=== PATIENT | female | born 1960 | race Caucasian/White ===

== ENCOUNTER 2020-11-19 10:32 | Outpatient (CLI) | payer MEDICARE, MEDICAID, SELFPAY ==
--- NOTE | 2020-11-19 10:00 | MM_ITS ---
WS: [id number] BILATERAL DIGITAL SCREENING MAMMOGRAPHY WITH CAD CLINICAL INFORMATION: Z12.31 - Encounter for screening mammogram for malignant neoplasm of breast HISTORY: Screening mammogram. No current complaints. COMPARISON: TECHNIQUE: Bilateral CC and MLO views. FINDINGS: Scattered fibroglandular densities bilaterally. Stable 9 mm ovoid nodule mid depth left breast. This is stable since 2006 and 2012. No suspicious focal mass, asymmetry, calcifications, or architectural distortion. No evidence of malignancy. Vascular calcification. Lucent center calcification. Secretory calcifications. MM/[place] [id number] IMPRESSION: BI-RADS: 2-Benign FOLLOW UP: 1 Year Follow-up Recommend return to annual screening mammography.
== END 2020-11-19 10:33 | disposition home or self-care (01) ==
PROVIDERS: PCP Nurse Practitioner Family; Visit Provider Nurse Practitioner Family
DX: Z12.31 Encounter for screening mammogram for malignant neoplasm of breast (principal)
CPT/HCPCS: 77067

== ENCOUNTER → 2020-12-05 09:45 | Outpatient (BNVA) | payer MEDICARE, MEDICAID, SELFPAY | PROVIDERS: PCP Nurse Practitioner Family; Visit Provider Surgery | DX: Z01.812 Encounter for preprocedural laboratory examination (principal); Z20.822 Contact with and (suspected) exposure to COVID-19 | CPT/HCPCS: 87635 ==

== ENCOUNTER 2020-12-11 07:48 | Day surgery (SDC) | payer MEDICARE, MEDICAID, SELFPAY ==
[2020-12-09 12:30] VITALS: BMI 40.6
--- NOTE | 2020-12-11 08:15 | ANES.PREANE2 ---
Pre-Anesthetic Assessment Pre-Anesthetic Assessment: Height/Weight: Height 1.55 m Weight 97.522 kg Preop Diagnosis: screening colonoscopy Proposed Procedure: Operation Date: 12/11/20 09:15 Proposed Procedures p Colonoscopy 63654 Z12.11(Not Applicable) - Aris Vogel MD Was Beta Mi taken within 24 hours: N/A Was Clonidine taken within 24 hours: N/A Social: Social History: No alcohol and No tobacco Exam: Pre-Anes Outpt Exam: alert, oriented x 3, clear to auscultation bilaterally and regular rate & rhythm Airway: Submandibular: WNL Cervical ROM: WNL MP: 2 CV/HEM: CV/HEM: DVT : : Chronic renal failure Comments: Peritoneal dialysis Metabolic: Metabolic: DM and Morbid obesity Anesthetic Plan: ASA status: 3 Anesthesia: MAC Risk of > 500 ml blood loss (7ml/kg in children): No PFSH Anesthesia PFSH: Medical History (Updated 11/24/20 @ 09:56 by Aris Vogel MD) CRF (chronic renal failure) DVT (deep venous thrombosis) Dyslipidemia Hx of essential hypertension Hx of type 2 diabetes mellitus Surgical History (Updated 11/24/20 @ 09:51 by Aris Vogel MD) History of parathyroid surgery Hx of hysterectomy Peritoneal dialysis catheter in situ S/P IVC filter Family History Father Cancer Denies family history of Anesthesia complication Bleeding disorder Social History Smoking and tobacco status: former smoker Second hand smoke exposure: No Smoking risk assessment/counseling performed?: No Alcohol intake: never Desire information about alcohol rehabilitation?: No Counseling given: No Desire information about substance/drug rehabilitation?: No Counseling given: No Adopted: No Caregiver/support person: No Lives independently: Yes Household members: none Housing: House Marital status: Number of children: 3 Highest education level completed: Some College, No Degree service: No Current occupational status: disabled Data Anesthesia Cardiac Studies: No Data to Display
[2020-12-11 08:26] VITALS: BP 146/86; PULSE 76; RESP 18; TEMP 36.2; O2SAT 98
[2020-12-11] MEDS: sodium chloride 0.9% 1,000 ML 30 ML IV (08:59)
[2020-12-11 09:09] LABS: Glucose Point of Care 232 mg/dL (70-110)
--- NOTE | 2020-12-11 09:42 | W.PM.OPSUD ---
Surgery/Procedure H&P Update DATE OF PROCEDURE: December 11, 2020 DATE H&P PERFORMED: 11/24/20 H&P UPDATE INFORMATION: I have reviewed H&P completed within last 30 days, I have examined patient prior to procedure and No changes to prior documentation PREOP DIAGNOSIS: screening colonoscopy PLANNED PROCEDURE: Operation Date: 12/11/20 09:15 Proposed Procedures p Colonoscopy 97381 Z12.11(Not Applicable) - Aris Vogel MD
[2020-12-11 10:02] VITALS: BP 96/53; PULSE 67; RESP 16; TEMP 36.3; O2SAT 98
--- NOTE | 2020-12-11 17:13 | ANE.PACU2 ---
Inpatient post-anesthesia follow up: Airway intact: Yes Vital signs: Temperature 97.3 F Pulse Rate 67 Respiratory Rate 16 Blood Pressure 96/53 Pulse Oximetry 98 Oxygen Delivery Me thod Room Air Oxygen Flow Rate Fraction of Inspir ed Oxygen Hydration adequate: Yes Nausea and vomiting: No Pain level: 1 Mental status: Baseline
== END 2020-12-11 10:30 | disposition home or self-care (01) ==
PROVIDERS: PCP Nurse Practitioner Family; Visit Provider Surgery
PROC: 0DJD8ZZ Inspection of Lower Intestinal Tract, Via Natural or Artificial Opening Endoscopic (ICD-10-PCS; CPT 45378; principal; 2020-12-11 09:15)
DX: Z12.11 Encounter for screening for malignant neoplasm of colon (principal); D12.5 Benign neoplasm of sigmoid colon; D12.3 Benign neoplasm of transverse colon; K57.30 Diverticulosis of large intestine without perforation or abscess without bleeding; K64.8 Other hemorrhoids; E11.22 Type 2 diabetes mellitus with diabetic chronic kidney disease; I12.9 Hypertensive chronic kidney disease with stage 1 through stage 4 chronic kidney disease, or unspecified chronic kidney disease; N18.9 Chronic kidney disease, unspecified; Z79.899 Other long term (current) drug therapy; Z87.891 Personal history of nicotine dependence; Z86.718 Personal history of other venous thrombosis and embolism
CPT/HCPCS: 36416; 45380; 82962; 88305; 96360; J2704; J7030

== ENCOUNTER 2020-12-26 08:21 | Outpatient (CLI) | payer MEDICARE, MEDICAID, SELFPAY ==
--- NOTE | 2020-12-26 08:25 | USCV_ITS ---
NOTE: Report was unsigned for reason: Ordering provider was edited. Original Signature date and time was: 12/26/20 @ 1315 Arianne Archer Age: 60 Gender: F : 1960 Exam Date: 12/26/2020 08:54 Ordering Phys: NOT ON FILE, DOCTOR XX Technologist: Tammy Long [place] [facility] [place]ication: pain, swelling HISTORY: Lower extremity swelling. PROCEDURES: Venous duplex imaging was performed in only the right lower extremity. The following venous structures were evaluated: common femoral vein, profunda vein, proximal portion of the greater saphenous vein, superficial femoral vein, and the popliteal vein. In addition, the posterior tibial and peroneal trunk were evaluated. FINDINGS: No DVT or superficial thrombus seen in RLE. CONCLUSIONS No evidence of right lower extremity DVT. Jin Easton MD (Electronically Signed) Final Date: 26 Dec 2020 13:15 S MTDD
== END 2020-12-26 08:22 | disposition home or self-care (01) ==
LOC: RAD 08:23
PROVIDERS: PCP Nurse Practitioner Family; Visit Provider Internal Medicine Hematology & Oncology
DX: Z86.718 Personal history of other venous thrombosis and embolism (principal); M79.89 Other specified soft tissue disorders
CPT/HCPCS: 93971

== ENCOUNTER → 2021-01-15 10:33 | Outpatient (BNVA) | payer MEDICARE, MEDICAID, SELFPAY | PROVIDERS: PCP Nurse Practitioner Family; Visit Provider Nurse Practitioner Family | DX: Z12.4 Encounter for screening for malignant neoplasm of cervix (principal) | CPT/HCPCS: 88175 ==

== ENCOUNTER 2021-05-26 13:21 | Outpatient (CLI) | payer MEDICARE, MEDICAID, SELFPAY ==
--- NOTE | 2021-05-26 13:00 | CT_ITS ---
WS: [id number] CT HEAD TECHNIQUE: Noncontrast CT of the head obtained from the skullbase to the vertex. CLINICAL INFORMATION: R55 - Syncope and collapse COMPARISON: None. DLP: 933.[address] scans at [facility] use at least one of these dose optimization techniques: automated e xposure control; mA and/or kV adjustment per patient size (includes targeted exams where dose is matc hed to clinical indication); or iterative reconstruction. FINDINGS: No evidence of intracranial hemorrhage or mass effect. Ventricular system and basal cisterns are tee nt. Moderate small vessel changes with moderate parenchymal volume loss. No extra-axial fluid collect ions. No evidence of mass or mass effect. Normal claudio-white differentiation. Paranasal sinuses and mastoid air cells are well aerated. Slight mucosal thickening left mastoid tip. .Normal visualized soft tissues. CT/CT head wo con* [id number] IMPRESSION: 1. No evidence of intracranial hemorrhage or mass effect. 2. Moderate small vessel changes. Moderate parenchymal volume loss. 3. No acute intracranial findings.
--- NOTE | 2021-05-26 13:30 | USCV_ITS ---
Arianne Archer Age: 60 Gender: F : 1960 Exam Date: 05/26/2021 13:41 Ordering Phys: Josie Caballero Technologist: Tammy Stout Exam Location: [facility] – [place] Indication: SYNCOPE Risk Factors: Previous Vascular Surgery: Right Brachial BP: / Left Brachial BP: / Right Left Velocity (cm/s) Spectral Plaque Velocity (cm/s) Spectral Plaque Syst/Diast Broadening Syst/Diast Broadening 95.90/ 8.80 Prox CCA 75.10 / 13.30 80.60/ 14.00 Mid CCA 65.60 / 14.00 65.30/ 15.50 Distal CCA 56.50 / 19.10 46.60/ 10.70 Prox ICA 47.30 / 17.70 49.70/ 16.90 Mid ICA 81.90 / 29.10 54.20/ 15.80 Distal ICA 75.00 / 28.00 80.00 ECA 60.50 0.67 ICA/CCA 1.25 Antegrade Vertebral Antegrade 34.80/ 15.10 cm/s 81.60/ 23.20 cm/s Tri Subclavian Tri 68.40 136.4 0 CONCLUSIONS Right ICA stenosis <50%. Mild atheromatous plaque right carotid bulb/ICA. Left ICA stenosis <50%. Mild atheromatous plaque left carotid bulb/ICA. Normal antegrade Doppler flow noted in the right vertebral artery. Normal antegrade Doppler flow noted in the left vertebral artery. Jin Easton MD (Electronically Signed) Final Date: 26 May 2021 14:11 S
== END 2021-05-26 13:22 | disposition home or self-care (01) ==
PROVIDERS: PCP Nurse Practitioner; Visit Provider Nurse Practitioner
DX: I65.23 Occlusion and stenosis of bilateral carotid arteries (principal); R55 Syncope and collapse
CPT/HCPCS: 70450; 93880

== ENCOUNTER 2021-05-26 13:23 | Outpatient (CLI) | payer MEDICARE, MEDICAID, SELFPAY ==
--- NOTE | 2021-05-26 13:37 | USCV_ITS ---
Arianne Archer Age: 60 Gender: F : 1960 Exam Date: 05/26/2021 14:00 Ordering Phys: Nick Nj MD Technologist: Tammy Stout [place] [facility] [place]: HISTORY OF DVT, TENDERNESS HISTORY: Lower extremity pain. Patient has history of. DVT. PROCEDURES: Venous duplex imaging was performed in only the left lower extremity. The following venous structures were evaluated: common femoral vein, profunda vein, proximal portion of the greater saphenous vein, superficial femoral vein, and the popliteal vein. In addition, the posterior tibial and peroneal trunk were evaluated. FINDINGS: There appears to be residual or partial thrombus present in the Lt SFV prox, mid, and distal. All other veins imaged appear free of thrombus and compressible at this time. Comparison 12/26 CONCLUSIONS Residual non occlusive thrombus Left femoral vein in the proximal segment extending distally. Remainder of LLE veins are patent. Jin Easton MD (Electronically Signed) Final Date: 26 May 2021 14:21 S
== END 2021-05-26 13:24 | disposition home or self-care (01) ==
PROVIDERS: PCP Nurse Practitioner; Visit Provider Internal Medicine Nephrology
DX: I82.412 Acute embolism and thrombosis of left femoral vein (principal); M79.605 Pain in left leg; Z86.718 Personal history of other venous thrombosis and embolism
CPT/HCPCS: 93971

== ENCOUNTER 2021-07-06 09:20 | Outpatient (CLI) | payer MEDICARE, MEDICAID, SELFPAY ==
--- NOTE | 2021-07-06 09:29 | CT_ITS ---
WS: [id number] CT HEAD TECHNIQUE: Noncontrast CT of the head obtained from the skullbase to the vertex. CLINICAL INFORMATION: UNSTEADY GAIT X 3 MONTHS COMPARISON: CT May 26, 2021 DLP: 871.[address] scans at [facility] use at least one of these dose optimization techniques: automated e xposure control; mA and/or kV adjustment per patient size (includes targeted exams where dose is matc hed to clinical indication); or iterative reconstruction. FINDINGS: No evidence of intracranial hemorrhage or mass effect. Ventricular system and basal cisterns are tee nt. Mild small vessel changes with mild parenchymal volume loss. No extra-axial fluid collections. No evidence of mass or mass effect. Normal claudio-white differentiation. Partial opacification left mastoid air cells. Right mastoid air cells well aerated. Paranasal sinuses are well aerated.Normal visualized soft tissues. CT/CT head wo con* [id number] IMPRESSION: 1. No evidence of intracranial hemorrhage or mass effect. 2. Mild small vessel changes. Mild parenchymal volume loss. 3. Partial opacification left mastoid air cells. 4. No acute intracranial findings
== END 2021-07-06 09:21 | disposition home or self-care (01) ==
LOC: RAD 09:25
PROVIDERS: PCP Nurse Practitioner; Visit Provider Internal Medicine Nephrology
DX: R26.89 Other abnormalities of gait and mobility (principal)
CPT/HCPCS: 70450

== ENCOUNTER 2021-07-21 10:53 | Outpatient (CLI) | payer MEDICARE, MEDICAID, SELFPAY ==
--- NOTE | 2021-07-21 11:00 | XR_ITS ---
WS: [id number] CHEST 2 VIEWS HISTORY: SHORTNESS OF BREATH COMPARISON: None available. Lungs: Clear with no abnormality. No pleural effusion or pneumothorax. Cardiac size: Normal. Mediastinum/Aorta: Mild atherosclerosis aorta. Bones: Normal. XR/XR chest 2V* [id number] IMPRESSION: Partially calcified thoracic aorta. No pneumonia.
== END 2021-07-21 10:54 | disposition home or self-care (01) ==
PROVIDERS: PCP Nurse Practitioner; Visit Provider Internal Medicine Nephrology
DX: R06.02 Shortness of breath (principal); I70.0 Atherosclerosis of aorta
CPT/HCPCS: 71046

== ENCOUNTER 2021-12-28 06:00 | Outpatient (RCR) | payer MEDICARE, MEDICAID, SELFPAY | END 2022-01-05 23:59 | disposition home or self-care (01) | LOC: APT 06:00 | PROVIDERS: PCP Nurse Practitioner; Referring Provider Internal Medicine Nephrology; Visit Provider Internal Medicine Nephrology | DX: R26.81 Unsteadiness on feet (principal); R29.6 Repeated falls | CPT/HCPCS: 97110; 97163 ==

== ENCOUNTER 2022-01-22 09:46 | Outpatient (CLI) | payer MEDICARE, MEDICAID, SELFPAY ==
--- NOTE | 2022-01-22 09:58 | MM_ITS ---
WS: [id number] BILATERAL SCREENING DIGITAL BREAST TOMOSYNTHESIS MAMMOGRAM WITH CAD HISTORY: SCREEN COMPARISON: 11/19/2020 and 11/10/2012 Bilateral CC and MLO views with tomosynthesis and synthetic mammography submitted. Computer aided det ection analyzed. Breast composition: There are scattered areas of fibroglandular density. No suspicious masses, microc alcifications or architectural distortion. Stable nodule in the central LEFT breast measures 10 mm. B enign breast arterial calcifications and scattered calcifications within each breast. MM/[place] [id number] IMPRESSION: BI-RADS: 2-Benign FOLLOW UP: 1 Year Follow-up
== END 2022-01-22 09:47 | disposition home or self-care (01) ==
LOC: RAD 09:47
PROVIDERS: PCP Nurse Practitioner; Visit Provider Nurse Practitioner
DX: Z12.31 Encounter for screening mammogram for malignant neoplasm of breast (principal)
CPT/HCPCS: 77063; 77067

== ENCOUNTER 2022-02-05 06:00 | Outpatient (RCR) | payer MEDICARE, MEDICAID, SELFPAY | END 2022-03-07 23:59 | disposition home or self-care (01) | LOC: APT 06:00 | PROVIDERS: PCP Nurse Practitioner; Referring Provider Internal Medicine Nephrology; Visit Provider Internal Medicine Nephrology | DX: R26.81 Unsteadiness on feet (principal); R29.6 Repeated falls | CPT/HCPCS: 97110 ==

== ENCOUNTER → 2022-02-09 10:15 | Outpatient (BNVA) | payer MEDICARE, MEDICAID, SELFPAY | PROVIDERS: PCP Nurse Practitioner; Visit Provider Internal Medicine Nephrology | DX: N18.6 End stage renal disease (principal); D63.1 Anemia in chronic kidney disease; R71.0 Precipitous drop in hematocrit | CPT/HCPCS: 83010; 83615; 86880 ==

== ENCOUNTER → 2022-11-10 09:11 | Outpatient (BNVA) | payer MEDICARE, MEDICAID, SELFPAY | PROVIDERS: PCP Nurse Practitioner; Referring Provider Internal Medicine Nephrology; Visit Provider Internal Medicine | DX: E11.65 Type 2 diabetes mellitus with hyperglycemia (principal); E11.22 Type 2 diabetes mellitus with diabetic chronic kidney disease; N18.6 End stage renal disease; R79.89 Other specified abnormal findings of blood chemistry; Z79.4 Long term (current) use of insulin; Z79.84 Long term (current) use of oral hypoglycemic drugs | CPT/HCPCS: 99204 ==

== ENCOUNTER → 2023-01-05 08:42 | Outpatient (BNVA) | payer MEDICARE, MEDICAID, SELFPAY | PROVIDERS: PCP Nurse Practitioner; Visit Provider Otolaryngology | DX: H93.13 Tinnitus, bilateral (principal); H91.93 Unspecified hearing loss, bilateral | CPT/HCPCS: 99213 ==

== ENCOUNTER 2023-01-22 20:37 | Emergency (ER) | payer MEDICARE, MEDICAID, SELFPAY ==
[2023-01-22 20:41] VITALS: BP 154/72; PULSE 69; RESP 16; TEMP 36.7; O2SAT 95
--- NOTE | 2023-01-22 22:55 | CTR_ITS ---
PROCEDURE INFORMATION: Exam: CT Head Without Contrast Exam date and time: 01/22/2023 11:02 PM Age: 62 years old Clinical indication: Injury or trauma; Fall; Blunt trauma (contusions or hematomas); Consciousness not specified; Injury details: Forehead inj; Additional info: Fall hit head TECHNIQUE: Imaging protocol: Computed tomography of the head without contrast. Radiation optimization: All CT scans at this facility use at least one of these dose optimization techniques: automated exposure control; mA and/or kV adjustment per patient size (includes targeted exams where dose is matched to clinical indication); or iterative reconstruction. REPORTING DATA: Count of CT and Cardiac NM exams in prior 12 months: This patient has received 0 known CTs and 0 known cardiac nuclear medicine studies in the 12 months prior to the current study. COMPARISON: CT head wo con* [id number] 07/06/2021 9:37 AM RADIATION DOSE METRICS: Total DLP (mGy-cm): 1221.29 FINDINGS: Brain: No focal hemorrhage or midline shift is identified. The ventricles and parenchyma show mild atrophy and chronic bicerebral white matter ischemic change. Cerebral ventricles: No ventriculomegaly or evidence of hydrocephalus. Paranasal sinuses: No evidence of acute sinusitis. Mastoid air cells: Visualized mastoid air cells are well aerated. Bones/joints: No displaced skull fracture is noted. Diffuse osteopenia. Soft tissues: Right anterior forehead small hematoma. Vasculature: Diffuse vascular calcifications are present. CT/CT head wo con* [id number] IMPRESSION: 1. No acute intracranial abnormality. 2. Mild age-related changes.
[2023-01-22 23:44] VITALS: BP 151/97; PULSE 72; O2SAT 98
[2023-01-23] VITALS: BP 142/95; PULSE 73; O2SAT 99
[2023-01-23 00:56] VITALS: BP 160/89; PULSE 69; RESP 18; O2SAT 99
--- NOTE | 2023-01-23 14:25 | W.ED.FALL ---
HPI - Fall General: Chief Complaint: Fall Stated Complaint: fall Time Seen by Provider: 01/22/23 23:39 Source: patient History of Present Illness: 62 year old lady with end stage renal disease on peritoneal dialysis. She presents after a fall this evening, striking her forehead. She has a large bump with an abrasion on her forehead. She was not knocked unconscious. She has no headache at this point. No focal localizing symptoms. There is some concern, because the family believes her speech has changed over the last week or so. They state it is more slurred. She saw her primary care physician four or five days ago because of the slurred speech, and perhaps some right sided weakness. CT was ordered, but has not yet been done. MD complaint: fall Onset (ago): hour(s) Fall from: standing Fall witnessed: yes, by family Place fall occurred: home Loss of consciousness: None Prolonged down time: no Symptoms prior to fall: none Context: tripped/slipped Location of injury: head Quality: other Associated symptoms-after fall: Reports difficulty walking; Denies abdominal pain, chest pain, confusion, headache(s), lightheadedness, neck pain or vertigo Review of Systems Const: Denies: fever(s) or chills Eyes: Denies: change in vision ENMT: Denies: throat pain Card: Denies: chest pain or lightheadedness Resp: Denies: dyspnea GI: Denies: abdominal pain Musc: Denies: neck pain or extremity pain Skin/Breast: Reports: other Neuro: Reports: difficulty walking and Slurred speech present; Denies: headache(s), vertigo or confusion PFS ED PFSH: Medical History CRF (chronic renal failure) Diabetes mellitus with hyperglycemia, with long-term current use of insulin DVT (deep venous thrombosis) Dyslipidemia Environmental and seasonal allergies Essential hypertension Peritoneal dialysis status Surgical History History of parathyroid surgery Hx of hysterectomy Peritoneal dialysis catheter in situ S/P IVC filter Status post colonoscopy (12/11/20) polyp, diverticulosis, internal hemorrhoids Family History Father Cancer Denies family history of Anesthesia complication Bleeding disorder Social History Smoking and tobacco status: former smoker Second hand smoke exposure: No Smoking risk assessment/counseling performed?: No Alcohol intake: never Desire information about alcohol rehabilitation?: No Counseling given: No Substance/Drug Use: never Desire information about substance/drug rehabilitation?: No Counseling given: No Adopted: No Caregiver/support person: No Lives independently: Yes Household members: none Housing: House Marital status: Number of children: 3 Highest education level completed: Some College, No Degree service: No Current occupational status: disabled Physical Exam Const: COMMON NORMALS: no acute distress GENERAL APPEARANCE: cooperative; not ill appearing and not frail appearing HENMT: COMMON NORMALS: normocephalic, atraumatic and Normal external nose present HEAD & SCALP: normocephalic and atraumatic FACE & SINUS: normal facial exam and face symmetric NOSE: Normal external nose present Eye: COMMON NORMALS: Equal, round and reactive pupils present and EOMs intact bilaterally PUPIL: Yes Equal, round and reactive pupils present Neck/C-Spine: GENERAL: Yes trachea midline Chest: CHEST: Yes Symmetrical chest wall rise Resp: COMMON NORMALS: normal respiratory effort, No retractions, No use of accessory muscles and clear to auscultation bilaterally AUSCULTATION: clear to auscultation bilaterally Cardio: COMMON NORMALS: regular rate and regular rhythm RATE: regular rate RHYTHM: regular rhythm GI: COMMON NORMALS: Normal to inspection, nondistended, normoactive bowel sounds present Extremity: COMMON NORMALS: no pedal edema Neuro: DIANNE COMA SCALE: document GCS findings [place] coma scale eye opening: Spontaneous Dianne coma scale verbal response: Orientated [place] coma scale motor response: Obey commands Dianne coma scale total score: 15 CRANIAL NERVES: Yes CN normal except as noted SPEECH: abnormal speech Details: slurred SENSORY EXAM: Yes extremities (intact) Psych: COMMON NORMALS: negative for speech normal SPEECH: No normal speech Skin: NARRATIVE SKIN EXAM: Abrasion to forehead. Bleeding is controlled. No repairable laceration. She does have a contusion under the abrasion. Course Vital Signs: Vital signs: Vital Signs Temperature 98.0 F 01/22/23 20:41 Pulse Rate 69 01/23/23 00:56 Respiratory Rate 18 01/23/23 00:56 Blood Pressure 160/89 01/23/23 00:56 Pulse Oximetry 99 01/23/23 00:56 Oxygen Delivery Me thod Room Air 01/23/23 00:00 MDM - Fall Medical Decision Making This patient does have slurred speech on exam. However, no other focal localizing symptoms. There is a history of frequent falls over the last year. She is on peritoneal dialysis. She has a contusion to her forehead, with an abrasion. It is clean and bandaged appropriately. No distinct laceration to suture. Head CT does not reveal acute skull fracture, hemorrhage, or any signs of acute or subacute or chronic stroke ischemia gorman to account for her prior complaint of slurred speech. She'll be allowed discharge for outpatient follow up and continued work up as necessary. Lab Data Radiology Impressions Head CT 01/22/23 22:55 IMPRESSION: 1. No acute intracranial abnormality. 2. Mild age-related changes. Discharge Plan Discharge Patient Disposition: Home Clinical Impression: Contusion of forehead, Abrasion of forehead Condition: Stable Prescriptions: No Action glipizide 10 mg tablet extended release 24hr 10 mg PO BID atorvastatin 40 mg tablet 40 mg PO DAILY RenaPlex-D 800 mcg-12.5 mg -2,000 unit tablet 1 tab PO DAILY Levemir U-100 Insulin 100 unit/mL solution 40 unit SUBCUT DAILY albuterol sulfate [ProAir HFA] 90 mcg/actuation HFA aerosol inhaler 2 puff inhalation QID PRN (Reason: shortness of breath or wheezing) Qty: 6.7 0RF cetirizine [Zyrtec] 10 mg tablet 5 mg PO DAILY Qty: 30 2RF fluticasone propionate [Flonase Allergy Relief] 50 mcg/actuation spray,suspension 2 spray intranasal DAILY Qty: 16 5RF Rx Instructions: administer into each nostril metoprolol succinate 50 mg tablet extended release 24 hr 50 mg PO BID Qty: 60 5RF (DME) FreeStyle Neo 2 [place] Misc See Rx Instructions .Route Qty: 1 0RF Rx Instructions: As directed (DME) FreeStyle Neo 2 Sensor Kit See Rx Instructions .Route Qty: 2 0RF Rx Instructions: As directed aspirin 81 mg Tablet 81 mg PO DAILY Discharge Orders: Discharge ED (Routine); Ordered 01/23/23 Ordered By: Melvin Gannon Referrals: Josie Caballero FNP-C [Primary Care Provider] - 1-3 days Patient Instructions: Abrasion (ED), Facial Contusion (ED) Activity Restrictions/Additional Instructions: Return for worsening headache, mental status, vomiting, other concerning symptoms. See your doctor this week. Coding Level of Care Code ED Scalp Treatment Specialist for Rosa Maria Oliva
== END 2023-01-23 00:59 | disposition home or self-care (01) ==
PROVIDERS: Emergency Provider Emergency Medicine; PCP Nurse Practitioner
DX: S00.83XA Contusion of other part of head, initial encounter (principal); S00.81XA Abrasion of other part of head, initial encounter; Z79.84 Long term (current) use of oral hypoglycemic drugs; Z79.4 Long term (current) use of insulin; E78.5 Hyperlipidemia, unspecified; I12.9 Hypertensive chronic kidney disease with stage 1 through stage 4 chronic kidney disease, or unspecified chronic kidney disease; E11.22 Type 2 diabetes mellitus with diabetic chronic kidney disease; N18.9 Chronic kidney disease, unspecified; Z99.2 Dependence on renal dialysis; Z87.891 Personal history of nicotine dependence; W19.XXXA Unspecified fall, initial encounter
CPT/HCPCS: 70450; 99284

== ENCOUNTER → 2023-01-31 10:21 | Outpatient (BNVA) | payer MEDICARE, MEDICAID, SELFPAY | PROVIDERS: PCP Nurse Practitioner; Visit Provider Otolaryngology | DX: H65.02 Acute serous otitis media, left ear (principal); H69.82 Other specified disorders of Eustachian tube, left ear; H93.13 Tinnitus, bilateral | CPT/HCPCS: 99212 ==

== ENCOUNTER → 2023-03-30 10:08 | Outpatient (BNVA) | payer MEDICARE, MEDICAID, SELFPAY | PROVIDERS: PCP Nurse Practitioner; Visit Provider Internal Medicine | DX: E11.65 Type 2 diabetes mellitus with hyperglycemia (principal); Z79.4 Long term (current) use of insulin; R79.89 Other specified abnormal findings of blood chemistry; Z79.84 Long term (current) use of oral hypoglycemic drugs | CPT/HCPCS: 99214 ==

== ENCOUNTER → 2023-04-12 09:31 | Outpatient (BNVA) | payer MEDICARE, MEDICAID, SELFPAY | PROVIDERS: PCP Nurse Practitioner; Visit Provider Internal Medicine | DX: E11.65 Type 2 diabetes mellitus with hyperglycemia (principal); Z79.4 Long term (current) use of insulin; R79.89 Other specified abnormal findings of blood chemistry; Z79.84 Long term (current) use of oral hypoglycemic drugs | CPT/HCPCS: 99214 ==

== ENCOUNTER → 2023-04-25 09:01 | Outpatient (BNVA) | payer MEDICARE, MEDICAID, SELFPAY | PROVIDERS: PCP Nurse Practitioner; Referring Provider Nurse Practitioner; Visit Provider Psychiatry & Neurology Neurology | DX: R55 Syncope and collapse (principal); R53.1 Weakness; E55.9 Vitamin D deficiency, unspecified; R26.0 Ataxic gait; G45.9 Transient cerebral ischemic attack, unspecified; W19.XXXA Unspecified fall, initial encounter | CPT/HCPCS: 36415; 80053; 82306; 82607; 82746; 83735; 83921; 84207; 84439; 84443; 84481; 85025; 86592; 86780; 99203 ==

== ENCOUNTER 2023-04-27 13:58 | Outpatient (CLI) | payer MEDICARE, MEDICAID, SELFPAY ==
--- NOTE | 2023-04-27 14:03 | MM_ITS ---
WS: [id number] BILATERAL 3D TOMOSYNTHESIS DIGITAL SCREENING MAMMOGRAPHY WITH CAD CLINICAL INFORMATION: Z12.31 - Encounter for screening mammogram for malignant ... HISTORY: Screening mammogram. No current complaints. COMPARISON: None. TECHNIQUE: Bilateral CC and MLO views. FINDINGS: Scattered fibroglandular densities bilaterally. No suspicious focal mass, asymmetry, calcifications, or architectural distortion. No evidence of malignancy. Vascular calcification. Punctate and lucent c entered calcifications. IMPRESSION: MM/[place] [address] BI-RADS: 2-Benign FOLLOW UP: 1 Year Follow-up Recommend return to annual screening mammography.
== END 2023-04-27 13:59 | disposition home or self-care (01) ==
PROVIDERS: PCP Nurse Practitioner; Visit Provider Nurse Practitioner
DX: Z12.31 Encounter for screening mammogram for malignant neoplasm of breast (principal)
CPT/HCPCS: 77063; 77067

== ENCOUNTER 2023-05-03 12:42 | Outpatient (CLI) | payer MEDICARE, MEDICAID, SELFPAY ==
--- NOTE | 2023-05-03 13:15 | USCV_ITS ---
Arianne Archer Age: 62 Gender: F : 1960 Exam Date: 05/03/2023 12:50 Ordering Phys: Les Muniz MD Technologist: CT Exam Location: [facility] – [place] Indication: Risk Factors: Previous Vascular Surgery: Right Brachial BP: / Left Brachial BP: / Right Left Velocity (cm/s) Spectral Plaque Velocity (cm/s) Spectral Plaque Syst/Diast Broadening Syst/Diast Broadening 73.60/ 14.00 Prox CCA 74.70 / 10.80 65.70/ 13.10 Mid CCA 68.80 / 16.70 53.60/ 12.20 Distal CCA 57.70 / 12.40 44.10/ 12.20 Prox ICA 64.10 / 11.90 64.50/ 16.30 Mid ICA 71.70 / 16.40 96.60/ 23.10 Distal ICA 84.10 / 25.70 55.00 ECA 58.00 1.31 ICA/CCA 1.13 Antegrade Vertebral Antegrade 50.20/ 11.60 cm/s 67.30/ 11.00 cm/s Tri Subclavian Tri 115.0 170.9 0 0 FINDINGS Comparison:. 05/26/21. No significant elevation of systolic or diastolic velocities. Waveforms are normal. Mild carotid atherosclerosis. Antegrade verebral arteries. CONCLUSIONS Bilateral ICA stenosis less than 50%. No interval change in stenosis since prior exam. Dr. Maxine Lemus DO (Electronically Signed) Final Date: 03 May 2023 14:51 S
== END 2023-05-03 12:43 | disposition home or self-care (01) ==
LOC: RAD 12:43
PROVIDERS: PCP Nurse Practitioner; Visit Provider Psychiatry & Neurology Neurology
DX: R55 Syncope and collapse (principal); I65.23 Occlusion and stenosis of bilateral carotid arteries
CPT/HCPCS: 93880

== ENCOUNTER 2023-05-19 10:54 | Outpatient (CLI) | payer MEDICARE, MEDICAID, SELFPAY ==
--- NOTE | 2023-05-19 11:00 | MR_ITS ---
WS: [id number] MRI HEAD WITHOUT CONTRAST TECHNIQUE: Sagittal T1, T2 axial, T2 axial FLAIR, axial and coronal T1 images, axial susceptibility w eighted imaging, axial diffusion weighted images, and coronal T2 images were obtained. CLINICAL INFORMATION: R55 - Syncope and collapse COMPARISON: CT head 01/22/2023 FINDINGS: Tiny punctate focus of restricted diffusion RIGHT basal ganglia along the posterior limb of the inter nal capsule. Additional punctate focus of restricted diffusion involving the LEFT dorsal midbrain curtis picious for tiny punctate lacunar infarcts. No other foci of restricted diffusion. Mild small vessel changes. Moderate parenchymal volume loss. Small vessel changes in the midbrain and steve. Notable moderate atrophy involving the midbrain, steve, and medulla. Normal vascular flow voids at the skull base. No extra-axial fluid collections. Mucosal thickening wi th partial opacification of the mastoid air cells. Normal posterior nasopharynx. Normal optic chiasm and pituitary infundibulum. Moderate symmetric atrophy temporal lobes hippocampal formations. IMPRESSION: 1. Suspected tiny punctate focus of restricted diffusion in the LEFT midbrain in the region of the r ed nucleus and periaqueductal claudio suspicious for a tiny acute to subacute lacunar infarct. 2. Additional suspected tiny punctate focus of restricted diffusion along the posterior limb RIGHT i nternal capsule also may represent a tiny acute to subacute lacunar infarct. Above 2 areas measure on ly 1 to 2 mm and could also be due to artifact 3. Otherwise no evidence of restricted diffusion to suggest acute ischemia. 4. Mild small vessel changes with moderate parenchymal volume loss. Small vessel changes in the midb rain and steve extending into the medulla. 5. Moderate notable prominent brainstem atrophy. 6. Moderate symmetric atrophy of the temporal lobes and hippocampal formations. 7. Partial opacification of the mastoid air cells bilaterally. 8. No hemosiderin on the susceptibly weighted images.
== END 2023-05-19 10:55 | disposition home or self-care (01) ==
PROVIDERS: PCP Nurse Practitioner; Visit Provider Psychiatry & Neurology Neurology
DX: R55 Syncope and collapse (principal); R53.1 Weakness; R90.89 Other abnormal findings on diagnostic imaging of central nervous system; G31.89 Other specified degenerative diseases of nervous system
CPT/HCPCS: 70551

== ENCOUNTER → 2023-06-23 11:53 | Outpatient (BNVA) | payer MEDICARE, MEDICAID, SELFPAY | PROVIDERS: PCP Nurse Practitioner; Visit Provider Psychiatry & Neurology Neurology | DX: Z86.73 Personal history of transient ischemic attack (TIA), and cerebral infarction without residual deficits (principal); R26.0 Ataxic gait; R53.1 Weakness | CPT/HCPCS: 99212 ==

== ENCOUNTER → 2023-07-14 09:43 | Outpatient (BNVA) | payer MEDICARE, MEDICAID, SELFPAY | PROVIDERS: PCP Nurse Practitioner; Visit Provider Internal Medicine | DX: E11.65 Type 2 diabetes mellitus with hyperglycemia (principal); Z79.4 Long term (current) use of insulin; R79.89 Other specified abnormal findings of blood chemistry; E03.8 Other specified hypothyroidism; Z79.84 Long term (current) use of oral hypoglycemic drugs | CPT/HCPCS: 99214 ==

== ENCOUNTER 2023-09-07 10:10 | Inpatient (IN) | payer MEDICARE, MEDICAID, SELFPAY ==
[2023-09-07] VITALS (72 sets, daily range): BP systolic 71–142; BP diastolic 40–118; PULSE 83–206; RESP 13–32; TEMP 36.6–36.8; O2SAT 94–100; BMI 39.6
--- NOTE | 2023-09-07 | XR_ITS ---
WS: [id number] Portable AP supine chest, 09/07/2023, 1335 hours Clinical Data: CENTRAL LINE Comparison: Portable chest, 09/07/2023, 1027 hours Findings: A right subclavian catheter has been inserted and the distal tip ends at the caval atrial j unction. No pneumothorax is seen. Impression: Insertion of right central venous catheter.
--- NOTE | 2023-09-07 10:13 | XR_ITS ---
WS: [id number] Portable AP upright chest, 09/07/2023 Clinical Data: dyspnea/cough Comparison: Two-view portable chest, 09/05/2023 Findings: No nodules, masses or effusions are seen. The heart is enlarged. The pulmonary vascularity is not increased. No pneumonia or pneumothorax is seen. Impression: Cardiomegaly.
--- NOTE | 2023-09-07 10:18 | ECG_ITS ---
[facility] Test Date: 2023-09-07 Pat Name: Arianne Archer Department: Room: Gender: Female Vp: : 1960 Requested By: Abraham Amanda Order Number: [id number] Reading MD: Jules Rogers M.D. Measurements Intervals [place] Rate: 85 P: 61 MD: 149 QRS: 62 QRSD: 80 T: 36 QT: 385 QTc: 460 Interpretive Statements SINUS RHYTHM LOW QRS VOLTAGE IN PRECORDIAL LEADS [QRS DEFLECTION < 1.0 mV IN CHEST LEADS] No previous ECG available for comparison Electronically Signed On 09-07-2023 18:30:54 COBOL DEVELOPER by Jules Rogers M.D. [email or web address] [id number]
--- NOTE | 2023-09-07 11:01 | ED_ITS ---
HPI - Syncope 2 General: Chief Complaint: Syncope Stated Complaint: syncope Time Seen by Provider: 09/07/23 10:11 Source: patient Mode of arrival: EMS History of Present Illness: 62-year-old female presents emergency ro om via EMS family brought her in after having a syncopal episode at home she went to stand and she passed out she did not strike her head she was seen 2 days ago in the emergency room with a nonproductive cough that been going on for 4 days she was prescribed antibiotics according to pharmacy reviewed she did not pick those up flu and COVID done at that visit were negative. MD complaint: almost passed out Onset (ago): minute(s) Prodromal symptoms: lightheaded Witnessed: Yes - by Bystander Context: standing up Associated symptoms: Reports short of breath and weakness; Deny abdominal pain, chest pain, fever(s), headache(s), lightheadedness, nausea, vertigo or other Treatments prior to arrival: none Review of Systems 2 Const: Denies: fever(s) Card: Denies: chest pain or lightheadedness Resp: Denies: dyspnea GI: Denies: abdominal pain or nausea : Denies: dysuria, urinary frequency or urinary urgency Musc: Denies: neck pain or back pain Skin/Breast: Denies: rash Neuro: Denies: headache(s) or vertigo PFSH ED 2 PFSH: Medical History Hyperlipidemia, mixed Essential hypertension Environmental and seasonal allergies Diabetes mellitus with hyperglycemia, with long-term current use of insulin Peritoneal dialysis status Dyslipidemia CRF (chronic renal failure) DVT (deep venous thrombosis) Surgical History Status post colonoscopy (12/11/20) polyp, diverticulosis, internal hemorrhoids Peritoneal dialysis catheter in situ History of parathyroid surgery S/P IVC filter Hx of hysterectomy Family History Father Cancer Denies family history of Anesthesia complication Bleeding disorder Social History Smoking and tobacco/nicotine status: former use of tobacco/nicotine Second hand smoke exposure: No Alcohol intake: never Substance/Drug Use: never Adopted: No Caregiver/support person: No Lives independently: Yes Household members: none Housing: House Marital status: Number of children: 3 Highest education level completed: Some College, No Degree service: No Current occupational status: disabled Physical Exam 2 Const: GENERAL APPEARANCE: cooperative and comfortable HENMT: COMMON NORMALS: normocephalic, atraumatic and hearing grossly normal bilaterally HEAD & SCALP: normocephalic and atraumatic Resp: COMMON NORMALS: No retractions and No use of accessory muscles A USCULTATION: rhonchi Cardio: COMMON NORMALS: regular rate, regular rhythm and No murmurs present (Cardio) RATE: regular rate RHYTHM: regular rhythm GI: COMMON NORMALS: Soft to palpation and No hepatosplenomegaly present A USCULTATION: Yes normoactive bowel sounds PALPATION: Yes Soft to palpation, No Tenderness to palpation present (GI), No Guarding due to palpation present (GI) and Yes No hepatosplenomegaly present Extremity: COMMON NORMALS: normal to inspection, capillary refill normal, no clubbing, cyanosis or edema, no calf tenderness and no pedal edema Skin: COMMON NORMALS: no rashes or lesions noted GENERAL SKIN EXAM: no rashes or lesions noted Procedures Central Line Placement Right SC: Time Out Performed: Yes Patient Placed on Monitor/Pulse Ox: Yes MD Prep: mask, gown and gloves Central Line Prep: Chlorhexidine scrub Local Anesthetic: lidocaine 1% Amount of anesthesia used (mL): 5 Ultrasound Used for Placement: Yes Central Line Lumen Inserted: triple Post Procedure: sutured in place, good blood return, all ports aspirated, flushed, capped and sterile dressing applied Post Procedure X-Ray: tip of catheter in good position and no pneumothorax seen Patient Tolerated Procedure: well Complications: none Course 2 Vital Signs: Vital signs: Vital Signs Temperature 98.3 F 09/07/23 10:31 Pulse Rate 100 09/07/23 10:31 Respiratory Rate 18 09/07/23 10:31 Blood Pressure 115/77 09/07/23 14:28 Pulse Oximetry 98 09/07/23 10:31 Oxygen Delivery Me thod Room Air 09/07/23 10:31 MDM - Syncope Medical Decision Making Leukocytosis suspect chest x-ray although there is a significant amount of cardiomegaly compared to yesterday. Fluid bolus given but concerned about fluid overload in this patient discussed Dr. Ackerman he could agrees. We started patient on Vanco and Zosyn will consult nephrology. Central line placed to give Levophed. Small fluid bolus given but did not give full sepsis bolus because of concern for fluid overload Medical Records I reviewed the patient's medical records. Lab Data I reviewed the patient's lab results. 09/07/23 10:48 09/07/23 10:48 Laboratory Results WBC 21.37 10^3/uL (3.29-11.43) H 09/07/23 10:48 RBC 2.71 10^6/uL (3.85-5.65) L 09/07/23 10:48 Hgb 9.50 g/dL (11.27-16.99) L 09/07/23 10:48 Hct 29.5 % (36-47) L 09/07/23 10:48 MCV 108.9 fl (85-98) H 09/07/23 10:48 MCH 35.1 pg (27-33) H 09/07/23 10:48 MCHC 32.2 g/dL (30-55) 09/07/23 10:48 RDW 17.1 % (12.1-15.1) H 09/07/23 10:48 Plt Count 220 10^3/cmm (157-399) 09/07/23 10:48 MPV 11.4 fL (7.4-10.4) H 09/07/23 10:48 Neut % (Auto) 87.4 % 09/07/23 10:48 Lymph % (Auto) 6.8 % 09/07/23 10:48 O'Brien % (Auto) 3.5 % 09/07/23 10:48 Eos % (Auto) 0.3 % 09/07/23 10:48 Baso % (Auto) 0.2 % 09/07/23 10:48 Neut # (Auto) 18.69 10^3/uL (1.8-7.7) H 09/07/23 10:48 Lymph # (Auto) 1.5 10^3/uL (0.8-4.8) 09/07/23 10:48 O'Brien # (Auto) 0.7 10^3/uL (0.2-0.9) 09/07/23 10:48 Eos # (Auto) 0.1 10^3/uL (0.0-0.8) 09/07/23 10:48 Baso # (Auto) 0.0 10^3/uL (0.0-0.1) 09/07/23 10:48 Nucleated RBC % (auto) 0.4 % 09/07/23 10:48 Nucleated RBCs # 0.1 /100WBC 09/07/23 10:48 Specimen Type Arterial 09/07/23 13:48 Sample Site Brachial, left 09/07/23 13:48 ABG pH 7.49 (7.35-7.45) H 09/07/23 13:48 ABG pCO2 29.7 mmHg (35-45) L 09/07/23 13:48 ABG pO2 58.0 mmHg (80.0-100.0) L 09/07/23 13:48 ABG PO2/FiO2 Ratio 0 09/07/23 13:48 ABG HCO3 22.7 mmol/L (22-26) 09/07/23 13:48 ABG O2 Saturation 92.3 09/07/23 13:48 ABG Base Excess -0.2 mmol/L (-2.0-2.0) 09/07/23 13:48 Teofilo Test Pos 09/07/23 13:48 A-a O2 Gradient 7.2 mmHg (5-10) 09/07/23 13:48 Hematocrit 26.9 % (37-47) L 09/07/23 13:48 Hgb O2 Saturation 90.9 % (95-100) L 09/07/23 13:48 Carboxyhemoglobin 1.7 %THgb (0.4-20.1) 09/07/23 13:48 Methemoglobin < 0.0 % (0.4-1.5) L 09/07/23 13:48 Total Hemoglobin 8.8 g/dL (12-16) L 09/07/23 13:48 Sodium 131.0 mmol/L (131-143) 09/07/23 13:48 Potassium 4.7 mmol/L (3.5-5.0) 09/07/23 13:48 Glucose 94.0 mg/dL (70-115) 09/07/23 13:48 Ionized Calcium 1.2 mmol/L (1.1-1.4) 09/07/23 13:48 O2 Delivery Device Room air 09/07/23 13:48 FiO2 21.0 % 09/07/23 13:48 Planting Machine Operator ID Lorenza 09/07/23 13:48 Sodium 132 mmol/L (136-145) L 09/07/23 10:48 Potassium 4.9 mmol/L (3.5-5.1) 09/07/23 10:48 Chloride 90 mmol/L (98-107) L 09/07/23 10:48 Carbon Dioxide 23 mmol/L (22-29) 09/07/23 10:48 Anion Gap 23.9 (5-19) H 09/07/23 10:48 BUN 79 mg/dL (8-23) H 09/07/23 10:48 Creatinine 11.6 mg/dL (0.5-0.9) H* 09/07/23 10:48 GFR Calculation 3.3 mL/min (90-130) L 09/07/23 10:48 Glucose 79 mg/dL (65-115) 09/07/23 10:48 Calculated Osmolality 297 mOsm/kg (285-295) H 09/07/23 10:48 Lactic Acid 2.7 mmol/L (0.5-2.2) H 09/07/23 10:48 Lactic Acid (Sepsis) 2.0 mmol/L (0.5-2.2) 09/07/23 14:00 Calcium 9.5 mg/dL (8.5-10.5) 09/07/23 10:48 Magnesium 2.1 mg/dL (1.7-2.3) 09/07/23 10:48 Total Bilirubin 0.4 mg/dL (0.15-1.2) 09/07/23 10:48 AST 27 U/L (0-32) 09/07/23 10:48 ALT 37 U/L (0-33) H 09/07/23 10:48 Alkaline Phosphatase 103 U/L (35-105) 09/07/23 10:48 Troponin T Baseline 131 ng/L (0-10) H* 09/07/23 10:48 Troponin T 120 Minute 124.8 ng/L (0-10) H 09/07/23 13:15 Delta Troponin T -6.2 ABS# (0-10) L 09/07/23 13:15 Total Protein 6.0 g/dL (6.6-8.7) L 09/07/23 10:48 Albumin 3.1 g/dL (3.5-5.2) L 09/07/23 10:48 Globulin 2.9 g/dL (1.3-4.6) 09/07/23 10:48 Serum Ketones Negative (Negative) 09/07/23 10:48 All radiology interpretation(s) finalized by discharge Critical Care Time 2 Critical Care Time: Critical Care Time: Yes Total Critical Care Time: 45 Attestation: The high probability of a clinically significant, sudden or life threatening deterioration of the patient's cardiovascular renal sepsis system(s) required my full and direct attention, intervention and personal management. The critical care time is as shown. This time is in addition to time spent performing any reported procedures but includes the following: [x] Data and vital sign review and interpretation [x] Patient assessment, examination and intervention [x] Documentation [x] Medication orders and management Discharge Plan Discharge Patient Disposition: Admitted As Inpatient Clinical Impression: Syncope and collapse, Peritoneal dialysis status, Diabetes mellitus with hyperglycemia, with long-term current use of insulin, CRF (chronic renal failure), Sepsis, Pneumonia Condition: Stable Prescriptions: No Action RenaPlex-D 800 mcg-12.5 mg -2,000 unit tablet 1 tab PO DAILY glipizide 10 mg tablet extended release 24hr 10 mg PO DAILY (DME) FreeStyle Neo 3 Sensor Device See Rx Instructions .Route Qty: 6 0RF Rx Instructions: As directed metoprolol succinate 50 mg tablet extended release 24 hr 50 mg PO BID Qty: 60 5RF atorvastatin 40 mg tablet 40 mg PO DAILY Qty: 30 5RF amlodipine 5 mg tablet 5 mg PO DAILY (DME) FreeStyle Neo 2 [place] Misc See Rx Instructions .Route Qty: 1 0RF Rx Instructions: As directed (DME) FreeStyle Neo 2 Sensor Kit See Rx Instructions .Route Qty: 2 0RF Rx Instructions: As directed Levemir FlexPen 100 unit/mL (3 mL) insulin pen 40 unit SUBCUT DAILY Qty: 25 1RF (DME) wheelchair See Rx Instructions .Route .MEDSUPPLY Qty: 1 0RF Rx Instructions: As directed 99 months aspirin [Aspir-81] 81 mg Tablet,Delayed Release (Dr/Ec) 81 mg PO DAILY potassium chloride 20 mEq tablet,ER particles/crystals 20 meq PO DAILY calcium carbonate [Calcium 500] 500 mg calcium (1,250 mg) Tablet 500 mg PO DAILY cephalexin 500 mg capsule 500 mg PO DAILY sevelamer carbonate 800 mg tablet 2,400 mg PO BID benzonatate 200 mg capsule 100 mg PO TID Qty: 30 0RF guaifenesin 1,200 mg tablet extended release 12hr 1,200 mg PO BID Qty: 14 0RF amoxicillin-pot clavulanate 875-125 mg tablet 1 tab PO BID Qty: 7 0RF Patient Instructions: Opioid Safety, Pain Management Coding Level of Care Code ED Hospice Educator for [facility]
[2023-09-07 11:04] LABS: Basophils % 0.2 %; Eosinophils # 0.1 10^3/uL (0.0-0.8); Eosinophils % 0.3 %; Hematocrit 29.5 % (36-47); Lymphocytes # 1.5 10^3/uL (0.8-4.8); Lymphocytes % 6.8 %; Mean Corpuscular HGB Conc 32.2 g/dL (30-55); Mean Corpuscular Hemoglobin 35.1 pg (27-33); Mean Corpuscular Volume 108.9 fl (85-98); Mean Platelet Volume 11.4 fL (7.4-10.4); Monocytes # 0.7 10^3/uL (0.2-0.9); Monocytes % 3.5 %; Neutrophils # 18.69 10^3/uL (1.8-7.7); Neutrophils % 87.4 %; Nucleated Red Blood Cells # 0.1 /100WBC; Nucleated Red Blood Cells % 0.4 %; Platelet Count 220 10^3/cmm (157-399); Red Blood Count 2.71 10^6/uL (3.85-5.65); Red Cell Distribution Width 17.1 % (12.1-15.1); White Blood Count 21.37 10^3/uL (3.29-11.43)
[2023-09-07 11:31] LABS: Troponin(5th) Baseline 131 ng/L (0-10)
[2023-09-07 11:32] LABS: Alanine Aminotransferase 37 U/L (0-33); Albumin Level 3.1 g/dL (3.5-5.2); Alkaline Phosphatase 103 U/L (35-105); Anion Gap 23.9 (5-19); Aspartate Amino Transferase 27 U/L (0-32); Blood Urea Nitrogen 79 mg/dL (8-23); Calcium 9.5 mg/dL (8.5-10.5); Carbon Dioxide 23 mmol/L (22-29); Chloride 90 mmol/L (98-107); Globulin 2.9 g/dL (1.3-4.6); Glomerular Filtration Rate 3.3 mL/min (90-130); Glucose 79 mg/dL (65-115); Magnesium 2.1 mg/dL (1.7-2.3); Osmolality Calculated 297 mOsm/kg (285-295); Potassium 4.9 mmol/L (3.5-5.1); Sodium 132 mmol/L (136-145); Total Bilirubin 0.4 mg/dL (0.15-1.2)
[2023-09-07] MEDS: sodium chloride 0.9% 1,000 ML 999 ML IV ×2 (11:45→19:58)
[2023-09-07 11:55] LABS: Lactic Sepsis W/Reflex 2.7 mmol/L (0.5-2.2)
--- NOTE | 2023-09-07 12:31 | ECG_ITS ---
[facility] Test Date: 2023-09-07 Pat Name: Arianne Archer Department: Room: Gender: Female Card Sorter: : 1960 Requested By: Abraham Amanda Order Number: [id number] Dwayne MD: Jules Rogers M.D. Measurements Intervals [place] Rate: 83 P: 51 NE: 154 QRS: 53 QRSD: 80 T: 30 QT: 395 QTc: 465 Interpretive Statements SINUS RHYTHM LOW QRS VOLTAGE IN PRECORDIAL LEADS [QRS DEFLECTION < 1.0 mV IN CHEST LEADS] Compared to ECG 09/07/2023 10:18:22 No significant changes Electronically Signed On 09-07-2023 18:34:09 INVESTIGATIONS DIRECTOR by Jules Rogers M.D. [id number]
[2023-09-07 13:19] LABS: Reflex Lactate Order REFLEX LACTIC ORDERD
[2023-09-07] MEDS: norepinephrine 4 MG/250 ML BAG 30 MG IV (13:54)
[2023-09-07 13:59] LABS: ABG PCO2 29.7 mmHg (35-45); ABG PH Result 7.49 (7.35-7.45); Alveolar-Arterial Oxygen Gradi 7.2 mmHg (5-10); Arterial Blood Gas Hematocrit 26.9 % (37-47); Base Excess ABG -0.2 mmol/L (-2.0-2.0); Blood Gas Allen Test Pos; Blood Gas Operator Identificat WALCI; Blood Gas Sample Site Brachial, left; Blood Gas Sample Type Arterial; Carboxyhemoglobin 1.7 %THgb (0.4-20.1); HCO3 ABG 22.7 mmol/L (22-26); HGB O2 Sat 90.9 % (95-100); Ionized Calcium Level - ABG 1.2 mmol/L (1.1-1.4); Methemoglobin < 0.0 % (0.4-1.5); Oxygen Device ROOM AIR; Oxygen Saturation ABG 92.3; PO2 FiO2 Ratio Arterial Blood 0; Potassium Level - ABG 4.7 mmol/L (3.5-5.0); Total Hemoglobin 8.8 g/dL (12-16)
[2023-09-07 14:00] LABS: Ketone (Acetest) Serum Negative (Negative)
[2023-09-07] MEDS: piperacillin-tazobactam 3.375 GM in sodium chloride 0.9% (plus) 50 ML IV (14:00)
[2023-09-07] MEDS: heparin 5,000 unit/mL INJ 1 mL IV (14:01)
[2023-09-07 14:04] LABS: Troponin 5 2HR 124.8 ng/L (0-10); Troponin 5 2HR Delta -6.2 ABS# (0-10)
[2023-09-07] MEDS: heparin drip 25,000 UNIT/500 ML PREMIX 26.67 UNIT IV (14:34)
[2023-09-07] MEDS: sodium chloride 0.9% 500 ML 999 ML IV (14:41)
[2023-09-07] MEDS: vancomycin 1,000 MG in sodium chloride 0.9% 250 ML 250 MG IV (15:05)
--- NOTE | 2023-09-07 15:23 | PM.HP ---
Providers/Chief Complaint Admitting Physician: Karsten Agrawal Chief Complaint: syncope History of Present Illness Arianne Archer is a 62 year old female was brought in for evaluation after syncopal episode at home, in ER found to be hypotensive, blood pressure down to 71/40. She was recently prescribed a course of antibiotic due to redness around the peritoneal dialysis catheter and the redness has gone away. Family did not notice cloudiness of peritoneal fluid, although when discussing worsened renal parameters, elevated creatinine, BUN, acidosis, states that PD machine has not been working properly. She normally gets peritoneal dialysis for 11 hours a day via [facility]. In ER she is with sinus tachycardia, leukocytosis 12.37. Possible sepsis. Source unclear. Reported recently to have had possible pneumonia for which was given a course of Augmentin, although pneumonia was suspected to be more likely viral. On 09/05 was seen in the ER, at that time rapid COVID-19 and rapid flu antigens were negative. Chest x-ray was unremarkable. She is noted to have significant cardiomegaly. Family notes also recently she has been choking more. She does have some history of small strokes in the past and they were wondering if she may have had some additional small strokes in the last several days. She is coughing, coughing up some phlegm. Has been having difficulties with dysphagia. In ER she is additionally started on heparin drip with noted troponin elevation up to 131. Family stated additionally noticed last week a ulceration with necrotic border under left breast. Review of Systems Const: Denies: fever(s), chills, body aches or malaise ENMT: Denies: throat pain or oral sores Card: Denies: chest pain, edema, pre-syncope or dyspnea on exertion Resp: Denies: dyspnea, productive cough, change in phlegm color or hemoptysis GI: Denies: abdominal pain, nausea, vomiting, diarrhea, constipation, hematochezia or melena : Denies: flank pain, urinary frequency or hematuria Musc: Denies: back pain, joint swelling or joint redness Skin/Breast: Denies: rash or new lesions Medications/Allergies Home Medications Medication Instructions Recorded Confirmed Last Taken Type vit B,C-folic ac 800 mcg-zinc 12.5 1 tab PO DAILY 08/18/20 09/07/23 09/04/23 History mg-selen-D3 2,000 unit-vit E tablet (RenaPlex-D) flash glucose scanning reader #1 ea 12/03/22 09/07/23 Unknown Rx (FreeStyle Neo 2 [place]) flash glucose sensor (FreeStyle #2 ea 12/03/22 09/07/23 Unknown Rx Neo 2 Sensor kit) blood-glucose sensor (FreeStyle #6 ea 04/12/23 09/07/23 Unknown Rx Neo 3 Sensor device) glipizide 10 mg tablet, extended 10 mg PO DAILY 04/12/23 09/07/23 09/04/23 History release 24 hr amlodipine 5 mg tablet 5 mg PO DAILY 04/25/23 09/07/23 09/04/23 History atorvastatin 40 mg tablet 40 mg PO DAILY #30 tabs 05/04/23 09/07/23 09/05/23 Rx metoprolol succinate 50 mg 50 mg PO BID #60 tabs 05/04/23 09/07/23 09/04/23 Rx tablet,extended release 24 hr insulin detemir U-100 100 unit/mL 40 unit (0.4 mL) SUBCUT DAILY #25 06/10/23 09/07/23 09/04/23 Rx (3 mL) subcutaneous pen (Levemir mL FlexPen) wheelchair #1 ea 07/08/23 09/07/23 Unknown Rx amoxicillin 875 mg-potassium 1 tab PO BID #7 tabs 09/05/23 09/07/23 Unknown Rx clavulanate 125 mg tablet aspirin 81 mg tablet,delayed 81 mg PO DAILY 09/05/23 09/07/23 09/05/23 History release benzonatate 200 mg capsule 100 mg (1/2 x 200 mg) PO TID Cough 09/05/23 09/07/23 Unknown Rx #30 caps calcium carbonate 500 mg calcium 500 mg PO DAILY 09/05/23 09/07/23 09/04/23 History (1,250 mg) tablet cephalexin 500 mg capsule 500 mg PO DAILY 09/05/23 09/07/23 09/05/23 History guaifenesin 1,200 mg tablet, 1,200 mg PO BID #14 tabs 09/05/23 09/07/23 Unknown Rx extended release 12 hr potassium chloride 20 mEq 20 meq PO DAILY 09/05/23 09/07/23 09/04/23 History tablet,extended release(part/cryst) sevelamer carbonate 800 mg tablet 2,400 mg PO BID 09/05/23 09/07/23 09/04/23 History Allergies Allergy/AdvReac Type Severity Reaction Status Date / Time allopurinol Allergy ADR-Faintin Verified 09/05/23 14:24 g Iodinated Contrast Media Allergy Unknown Verified 09/05/23 14:24 loratadine [From Claritin-D] Allergy Heart Verified 09/05/23 14:24 Palpatations pseudoephedrine Allergy Heart Verified 09/05/23 14:24 [From Claritin-D] Palpatations PFSH Acute PFSH: Medical History Hyperlipidemia, mixed Essential hypertension Environmental and seasonal allergies Diabetes mellitus with hyperglycemia, with long-term current use of insulin Peritoneal dialysis status Dyslipidemia CRF (chronic renal failure) DVT (deep venous thrombosis) Surgical History Status post colonoscopy (12/11/20) polyp, diverticulosis, internal hemorrhoids Peritoneal dialysis catheter in situ History of parathyroid surgery S/P IVC filter Hx of hysterectomy Family History Father Cancer Denies family history of Anesthesia complication Bleeding disorder Social History Smoking and tobacco/nicotine status: former use of tobacco/nicotine Second hand smoke exposure: No Alcohol intake: never Substance/Drug Use: never Adopted: No Caregiver/support person: No Lives independently: Yes Household members: none Housing: House Marital status: Number of children: 3 Highest education level completed: Some College, No Degree service: No Current occupational status: disabled Vitals/I&O/Wt Last Vital Signs Temp 98.3 F 09/07/23 10:31 Pulse 100 09/07/23 10:31 Resp 18 09/07/23 10:31 BP 115/77 09/07/23 14:28 Pulse Ox 98 09/07/23 10:31 O2 Del Method Room Air 09/07/23 10:31 09/07/23 09/07/2324 06:59 14:59 22:59 Intake Total 1050 / 1050 500 / 1550 Balance 1050 / 1050 500 / 1550 Weight last 48 hrs Weight 95.254 kg Physical Exam Const: COMMON NORMALS: patient oriented x3 and alert GENERAL APPEARANCE: cooperative ORIENTATION/CONSCIOUSNESS: Yes awake HENMT: COMMON NORMALS: oropharynx normal Neck/C-Spine: COMMON NORMALS: no JVD Resp: COMMON NORMALS: normal respiratory effort and clear to auscultation bilaterally AUSCULTATION: clear to auscultation bilaterally Cardio: COMMON NORMALS: no JVD, regular rhythm, S1 normal heart sound present, S2 normal heart sound present and No murmurs present (Cardio) RHYTHM: regular rhythm HEART SOUNDS: S1 normal heart sound present and S2 normal heart sound present GI: COMMON NORMALS: Normal to inspection, nondistended, normoactive bowel sounds present, Soft to palpation and non-tender PALPATION: Yes Soft to palpation : OTHER: Erythema resolved around PD catheter. Extremity: COMMON NORMALS: no joint enlargement and no pedal edema Neuro: COMMON NORMALS: patient oriented x3 and moves all extremities SENSORIUM/ORIENTATION: Yes alert Skin: NARRATIVE SKIN EXAM: Overall, 3 cm at least stage II pressure ulceration with necrotic border under medial left breast. No tunneling, no drainage. OTHER: Ichthyosis bilateral lower extremities. Sepsis: Focused sepsis exam: After initial resuscitation, limited due to ESRD, risk of fluid overload, blood pressure with improvement, good capillary refill, no mottling. No cyanosis. She wakes up, responds to questions. Data 09/07/23 10:48 09/07/23 10:48 A&P Assessment and plan (1) Hypotension: Shock, possible septic shock, noted leukocytosis 21.37, sinus tachycardia 100 bpm. Some reports of possible recent pneumonia, chest x-ray not grossly suggestive of pneumonia, but some haziness in right middle lobe. Additionally recently redness around peritoneal dialysis catheter, was treated with a course of antibiotic, redness did resolve. Family deny any cloudy dialysate. Blood culture and peritoneal dialysate culture are requested. Lactic acid elevated 2.7. Follow-up cultures. Broad-spectrum antibiotic coverage with Zosyn, vancomycin. Hemodynamic support with norepinephrine. Had a central line placed in ER. Admission to ICU. DVT prophylaxis, PPI prophylaxis. UA is ordered, follow-up urine studies. Ultrasound of wound under left breast to assess for any abscess. Reviewed vitals, CBC, ABG, CMP, troponin, serum ketones, magnesium, chest x-ray, EKG, ER note, discussed with ER physician. Qualifiers: Hypotension type: unspecified hypotension type Qualified Code(s): I95.9 - Hypotension, unspecified (2) CRF (chronic renal failure): Current renal failure, with noted anion gap acidosis, noted worsened creatinine both in and currently, as well as elevated BUN, potassium looks okay. It appears PT may not be effective, when discussed with family, they state that machine has not been working properly over the last week or so. Previously lab work was better. She only gets PD for 11 hours a day through [facility]. Nephrology consultation is requested. (3) Peritoneal dialysis status: Obtain dialysis dialysate cultures. (4) Sepsis: As above (5) Syncope and collapse: Likely secondary to hypotension, sepsis, additional cardiac evaluation as below. (6) Troponin level elevated: For elevated 132. Hypotensive on presentation. Possibly demand ischemia secondary to sepsis, septic shock. However, cardiac function is unknown. Obtain TTE. Complete troponin EKG series. She is free of chest pain. With possible demand ischemia will further benefit from additional cardiac risk stratification. With possible NSTEMI, continue aspirin, not a candidate for beta-veronica at this time. Was started on anticoagulation, continue heparin drip. Monitor on telemetry. (7) Dysphagia: Family report dysphagia over the last at least several days, she has had previously some small strokes. They were wondering if she may have had some additional small strokes. On pharyngeal exam I do not see any tonsillomegaly, no posterior pharyngeal erythema. She is having some secretions, some difficulty coughing up secretions, has been having some dysphagia with food and drink. Will keep n.p.o. for now with sepsis, septic shock, concern for aspiration risk. Once ready will need speech therapy evaluation, once able to tolerate MBS. Obtain CT head. Continue aspirin. (8) Pressure ulcer: Underneath left breast. Additional assessment with ultrasound requested. Wound care requested. (9) Cardiomegaly: Incidentally noted cardiomegaly on chest x-ray. Quite significant. Discussed with her and family. Assess TTE. Complete troponin EKG series. Monitor on telemetry. Plan Goals of care discussion: She would want attempted resuscitation in case of cardiopulmonary arrest. Family are in the process of finalizing DPOA paperwork. Recent cellulitis around PD catheter. Resolved after completion of antibiotic course. History of DVT, status post IVC filter HLD: Unclear benefit of statin in patients with ESRD on dialysis. Hold statin for now. HTN: Currently hypotensive, hold antihypertensives. DM2: Noted acidosis, anion gap elevated, however, ABG reviewed, pH 7.49. Serum ketones obtained, negative. Urine studies pending. Not likely DKA. Continue sliding scale insulin. Extracts. N.p.o. for now due to dysphagia. Resume consist carbohydrate diet once able to resume oral intake. Other medical problems Attestations Medical Necessity Statement*: Admission of over 2 midnights anticipated for assessment management of septic shock, troponin elevation, possible NSTEMI, and lady with ESRD on peritoneal dialysis. Coding Level of Care Code Critical Care >/= 30 minutes Critical care time (in minutes): 35 The high probability of a clinically significant, sudden or life threatening deterioration, as referenced in this documentation, required my full and direct attention, intervention and personal management. The critical care time shown is in addition to time spent performing any reported separately billable procedures and includes the following: [x] Data and vital sign review and interpretation [x] Patient assessment, examination and intervention [x] Medication orders and management [x] Patient/Family updates as able [x] Care Coordination and Documentation. Diagnoses Hypotension I95.9 Hypotension type: unspecified hypotension type CRF (chronic renal failure) N18.9 Peritoneal dialysis status Z99.2 Sepsis A41.9 Syncope and collapse R55 Troponin level elevated R79.89 Dysphagia R13.10 Pressure ulcer L89.90 Cardiomegaly I51.7
--- NOTE | 2023-09-07 15:25 | CTR_ITS ---
PROCEDURE INFORMATION: Exam: CT Head Without Contrast Exam date and time: 09/08/2023 5:16 AM Age: 62 years old Clinical indication: Speech disturbance; Dysphasia; Additional info: Worsening dysphagia. Family conc about small stroke recently TECHNIQUE: Imaging protocol: Computed tomography of the head without contrast. Radiation optimization: All CT scans at this facility use at least one of these dose optimization techniques: automated exposure control; mA and/or kV adjustment per patient size (includes targeted exams where dose is matched to clinical indication); or iterative reconstruction. COMPARISON: MR head wo con* [id number] 05/19/2023 12:27 PM RADIATION DOSE METRICS: Total DLP (mGy-cm): 1114.88 FINDINGS: Brain: Normal. No hemorrhage. Unremarkable white matter. No mass effect. Cerebral ventricles: No ventriculomegaly. Paranasal sinuses: See Bones/joints finding. Mastoid air cells: Visualized mastoid air cells are well aerated. Bones/joints: Mild sphenoid, ethmoid, and maxillary mucosal thickening. Soft tissues: Unremarkable. CT/CT head wo con* [id number] IMPRESSION: No acute intracranial abnormality.
--- NOTE | 2023-09-07 16:37 | USCV_ITS ---
Arianne Archer Age: 62 Gender: F : 1960 Exam Date: 09/07/2023 18:27 Ordering Phys: Karsten Agrawal MD Technologist: YOLANDE Exam Location: [facility] Indication: cardiomegaly, syncope, No history of cardiac intervention per patient. BP: 115 / 77 HR: 92 Rhythm: Sinus Technical Quality: Adequate MEASUREMENTS (Male / Female) Normal Values 2D ECHO LV Diastolic Diameter PLAX 3.3 cm 4.2 - 5.9 / 3.9 - 5.3 cm LV Systolic Diameter PLAX 2.0 cm IVS Diastolic Thickness 1.1 cm 0.6 - 1.0 / 0.6 - 0.9 cm IVS Systolic Thickness 1.6 cm LVPW Diastolic Thickness 1.0 cm 0.6 - 1.0 / 0.6 - 0.9 cm LVPW Systolic Thickness 1.1 cm LVOT Diameter 1.8 cm LV Ejection Fraction 2D Teich 72.7 % LV Ejection Fraction MOD 2C 72.3 % LV Ejection Fraction 2C AL 73.0 % LA Diameter 3.2 cm LA Width 3.4 cm LA Height 4.5 cm RA Width 3.5 cm RA Height 3.4 cm Aorta at Sinotubular Diameter 2.3 cm IVC Diameter 1.6 cm M-MODE Aortic Annulus Diameter 3.2 cm LA Ao Ratio MM 1.1 MV E Point Septal Separation 0.3 cm DOPPLER AV Peak Velocity 120.0 cm/s LVOT Peak Velocity 92.0 cm/s AV Area Cont Eq vti 1.7 cm squared AV Area Cont Eq pk 2.0 cm squared MV Peak Velocity 111.0 cm/s MV Area PHT 3.6 cm squared Mitral E to A Ratio 0.7 MV E' Velocity 31.0 cm/s Mitral E to MV E' Ratio 4.9 Mitral E to LV E' Lateral Ratio 7.4 Mitral E to LV E' Septal Ratio 3.6 PV Peak Velocity 77.0 cm/s RV Acceleration Time 0.2 s RV Ejection Time 0.3 s RV AcT/ET 0.6 FINDINGS Left Ventricle Left ventricle is normal in size. LV systolic function is normal with EF of 60 to 65%. No regional wall motion normalities are seen. Grade 1 diastolic dysfunction Right Ventricle Normal in size and function. There is minimal diastolic compression of the RV Right Atrium Not well visualized Left Atrium Normal in size Mitral Valve Structurally normal mitral valve. Aortic Valve Grossly normal aortic valve.. No significant stenosis or regurgitation. Tricuspid Valve Trace tricuspid regurgitation Pulmonic Valve Trace pulmonic regurgitation Pericardium Large sized pericardial effusion seen. 2.5 cm in the largest dimension Aorta Normal in size IVC Grossly normal in size CONCLUSIONS LV systolic function is normal with EF of 60-65% Grade 1 diastoluc dysfunction Early signs of cardiac tamponade. Minimal diastolic compression Trace tricuspid regurgitation Trace pulmonic regurgitation Large sized pericardial effusion Comparison studies are available. Jules Rogers MD (Electronically Signed) Final Date: 08 September 2023 17:16 S
--- NOTE | 2023-09-07 16:37 | US_ITS ---
WS: [id number] ULTRASOUND SOFT TISSUES limited LEFT breast HISTORY: Wound under l breast, assess for abscess COMPARISON: None available. TECHNIQUE: 2-D and color Doppler imaging is submitted. There is very mild skin thickening and edema at the site of the LEFT breast lesion, 9:00. There is no abscess or focal collection. IMPRESSION: No LEFT breast abscess at the site of the 9:00 lesion.
--- NOTE | 2023-09-07 17:34 | ECG_ITS ---
[facility] Test Date: 2023-09-07 Pat Name: Arianne Archer Department: Room: [facility] Gender: Female [employer]: : 1960 Requested By: Abraham Amanda Order Number: [id number] Dwayne MD: Jules Rogers M.D. Measurements Intervals [place] Rate: 96 P: -5 NM: 148 QRS: 75 QRSD: 76 T: 53 QT: 374 QTc: 473 Interpretive Statements SINUS RHYTHM LOW QRS VOLTAGE IN PRECORDIAL LEADS [QRS DEFLECTION < 1.0 mV IN CHEST LEADS] Compared to ECG 09/07/2023 12:31:37 No significant changes Electronically Signed On 09-07-2023 18:33:18 DOOR SLINGER by Jules Rogers M.D. [id number]
[2023-09-07] MEDS: pantoprazole 40 mg SDV IVP (17:35)
[2023-09-07 17:53] LABS: Glucose Point of Care 100 mg/dL (70-110)
--- NOTE | 2023-09-07 18:01 | PC.PHAR ---
Vancomycin pharmacy to dose Patient received 1 gm Vancomycin in ER on 09/07/23. Will do a random Vancomycin level 09/09/23 1500 and dose accordingly after that Thank you, Amrita Acosta [facility]
[2023-09-07 19:29] LABS: Troponin 5 6HR Delta -5.1 ng/L (0-12)
[2023-09-07 19:32] LABS: Troponin 5 6HR 125.9 ng/L (0-10)
[2023-09-07] MEDS: ondansetron 2 mg/ML SDV 2 mL 4 MG IVP (19:48)
--- NOTE | 2023-09-07 19:53 | P.CONIM_ITS ---
Providers/Reason For Consult 2 Consulting Physician/Specialty*: kommana/Nephrology Reason for Consult*: ESRD -PD Attending Physician: Karsten Agrawal History of Present Illness History of Present Illness Arianne Archer is a 62 year old female patient is a 62-year-old female who has past medical history of end-stage renal disease on peritoneal dialysis for the last 12 years, hypertension, diabetes, dyslipidemia presented to the emergency department due to a syncopal episode at home. Patient was noted to be hypotensive in the emergency department with pressures in the 70s. She was also tachycardic. Patient normally gets peritoneal dialysis via cycler 10 exchanges per night. Lab data was significant for white count of 21,000, hemoglobin of 9.5 sodium 132 and creatinine of 11.6 Review of Systems 2 Narrative: Other review of systems negative Medications/Allergies Home Medications Medication Instructions Recorded Confirmed Last Taken Type vit B,C-folic ac 800 mcg-zinc 12.5 1 tab PO DAILY 08/18/20 09/07/23 09/04/23 History mg-selen-D3 2,000 unit-vit E tablet (RenaPlex-D) flash glucose scanning reader #1 ea 12/03/22 09/07/23 Unknown Rx (FreeStyle Neo 2 [place]) flash glucose sensor (FreeStyle #2 ea 12/03/22 09/07/23 Unknown Rx Neo 2 Sensor kit) blood-glucose sensor (FreeStyle #6 ea 04/12/23 09/07/23 Unknown Rx Neo 3 Sensor device) glipizide 10 mg tablet, extended 10 mg PO DAILY 04/12/23 09/07/23 09/04/23 History release 24 hr amlodipine 5 mg tablet 5 mg PO DAILY 04/25/23 09/07/23 09/04/23 History atorvastatin 40 mg tablet 40 mg PO DAILY #30 tabs 05/04/23 09/07/23 09/05/23 Rx metoprolol succinate 50 mg 50 mg PO BID #60 tabs 05/04/23 09/07/23 09/04/23 Rx tablet,extended release 24 hr insulin detemir U-100 100 unit/mL 40 unit (0.4 mL) SUBCUT DAILY #25 06/10/23 09/07/23 09/04/23 Rx (3 mL) subcutaneous pen (Levemir mL FlexPen) wheelchair #1 ea 07/08/23 09/07/23 Unknown Rx amoxicillin 875 mg-potassium 1 tab PO BID #7 tabs 09/05/23 09/07/23 Unknown Rx clavulanate 125 mg tablet aspirin 81 mg tablet,delayed 81 mg PO DAILY 09/05/23 09/07/23 09/05/23 History release benzonatate 200 mg capsule 100 mg (1/2 x 200 mg) PO TID Cough 09/05/23 09/07/23 Unknown Rx #30 caps calcium carbonate 500 mg calcium 500 mg PO DAILY 09/05/23 09/07/23 09/04/23 History (1,250 mg) tablet cephalexin 500 mg capsule 500 mg PO DAILY 09/05/23 09/07/23 09/05/23 History guaifenesin 1,200 mg tablet, 1,200 mg PO BID #14 tabs 09/05/23 09/07/23 Unknown Rx extended release 12 hr potassium chloride 20 mEq 20 meq PO DAILY 09/05/23 09/07/23 09/04/23 History tablet,extended release(part/cryst) sevelamer carbonate 800 mg tablet 2,400 mg PO BID 09/05/23 09/07/23 09/04/23 History Allergies Allergy/AdvReac Type Severity Reaction Status Date / Time allopurinol Allergy ADR-Faintin Verified 09/05/23 14:24 g Iodinated Contrast Media Allergy Unknown Verified 09/05/23 14:24 loratadine [From Claritin-D] Allergy Heart Verified 09/05/23 14:24 Palpatations pseudoephedrine Allergy Heart Verified 09/05/23 14:24 [From Claritin-D] Palpatations Current Medications Generic Name Dose Route Start Last Admin Trade Name Freq PRN Reason Stop Dose Admin Heparin Sodium (Porcine) 0 unit 09/07/23 11:55 09/07/23 14:01 Heparin 5,000 Unit/Ml Inj 1 Ml IV 4,000 unit PRN PRN Administration Heparin weight-base protocol Protocol norepinephrine 4 mg in 250 mls @ 0 mls/hr 09/07/23 12:00 09/07/23 13:54 Levophed IV 8 mcg/min .Q0M AZIZA 30 mls/hr Administration Protocol Per Protocol Heparin Sodium/Sodium Chloride 25,000 unit in 500 mls @ 0 mls/hr 09/07/23 12:00 09/07/23 14:34 Heparin Drip IV 14 unit/kg/hr .Q0M AZIZA 26.67 mls/hr Administration Protocol Per Protocol Insulin Human Lispro 0 unit 09/07/23 17:00 09/07/23 17:56 Insulin Lispro 100 Unit/1 Ml SUBCUT Not Given Q6H AZIZA Protocol Ondansetron HCl 4 mg 09/07/23 16:37 09/07/23 19:48 Ondansetron 2 Mg/Ml Sdv 2 Ml IVP 4 mg Q8H PRN Administration vomiting, or N/V if npo Pantoprazole Sodium 40 mg 09/07/23 16:37 09/07/23 17:35 Pantoprazole 40 Mg Sdv IVP 40 mg Q24H AZIZA Administration Sevelamer Carbonate 2,400 mg 09/07/23 18:00 09/07/23 18:14 Sevelamer 800 Mg Tablet PO Not Given BID AZIZA PFSH Acute 2 PFSH: Medical History Hyperlipidemia, mixed Essential hypertension Environmental and seasonal allergies Diabetes mellitus with hyperglycemia, with long-term current use of insulin Peritoneal dialysis status Dyslipidemia CRF (chronic renal failure) DVT (deep venous thrombosis) Surgical History Status post colonoscopy (12/11/20) polyp, diverticulosis, internal hemorrhoids Peritoneal dialysis catheter in situ History of parathyroid surgery S/P IVC filter Hx of hysterectomy Family History Father Cancer Denies family history of Anesthesia complication Bleeding disorder Social History Smoking and tobacco/nicotine status: former use of tobacco/nicotine Second hand smoke exposure: No Alcohol intake: never Substance/Drug Use: never Adopted: No Caregiver/support person: No Lives independently: Yes Household members: none Housing: House Marital status: Number of children: 3 Highest education level completed: Some College, No Degree service: No Current occupational status: disabled Vitals/I&O/Wt Last Vital Signs Temp 98.3 F 09/07/23 10:31 Pulse 102 H 09/07/23 18:55 Resp 23 H 09/07/23 18:55 BP 93/56 09/07/23 18:55 Pulse Ox 98 09/07/23 18:55 O2 Del Method Room Air 09/07/23 15:31 09/07/23 09/07/23 09/07/23 06:59 14:59 22:59 Intake Total 1050 / 1050 500 / 1550 Balance 1050 / 1050 500 / 1550 Weight last 48 hrs Weight 95.254 kg Physical Exam 2 Narrative: Patient is awake, alert, in distress Data 09/08/23 04:42 09/08/23 04:42 A&P Assessment and plan (1) Peritoneal dialysis status: Plan 1. End-stage renal disease: On peritoneal dialysis . Patient is hypotensive and was found to have large pericardial effusion with tamponade and plan for urgent pericardiocentesis -Will hold off on peritoneal dialysis tonight -Continue to monitor labs and volume status 2. Pericardial effusion with tamponade, patient going to the OR for pericardiocentesis tonight, cardiology following 3. Hyponatremia: Mild, monitor 4. Anemia : Hemoglobin of 8.7, will order ANNA Patient evaluated using audiovisual cart. Time spent 40 minutes. Consult Attestations 2 Medical Necessity Statement: Per medicine team Coding Level of Care Code Acute Code for Chg Fwd Diagnoses Peritoneal dialysis status Z99.2
[2023-09-07 19:57] LABS: ABG PCO2 25.3 mmHg (35-45); ABG PH Result 7.49 (7.35-7.45); Alveolar-Arterial Oxygen Gradi 2.2 mmHg (5-10); Arterial Blood Gas Hematocrit 31.8 % (37-47); Base Excess ABG -3.3 mmol/L (-2.0-2.0); Blood Gas Operator Identificat JB; Blood Gas Sample Site Brachial, right; Blood Gas Sample Type Arterial; HGB O2 Sat 96.4 % (95-100); Ionized Calcium Level - ABG 1.1 mmol/L (1.1-1.4); Methemoglobin 0.4 % (0.4-1.5); Oxygen Device NC; Oxygen Saturation ABG 97.8; PO2 ABG 99.8 mmHg (80.0-100.0); Potassium Level - ABG 4.3 mmol/L (3.5-5.0); Total Hemoglobin 10.4 g/dL (12-16)
--- NOTE | 2023-09-07 20:06 | XACV_ITS ---
Exam Room: [facility] Gender: Female : 1960 Exam Priority: Routine Procedure(s): Procedure Description: Miscellaneous Procedure Description: Pericardiocentesis Interventional Findings * INDICATION: Large pericardial effusion/tamponade. * Pericardiocentesis: * Using sterile technique, under ultrasound and fluoroscopic guidance, we advanced a pericardiocentesis needle into pericardial space. We then advanced a J-wire into pericardial space. This was followed by placement of pericardial drain. 1000 cc of yellowish clear fluid was drained in the Decal Decorator. Fluid was sent for lab evaluation. Drain was left in place for further evacuation. Patient left the Decal Decorator in a stable condition . Conclusions 1. Large pericardial effusion causing early signs of pericardial tamponade. S/p successful pericardiocentesis and drain placement. Fluid sent for lab analysis. Recommendations * Transfer back to ICU. * Follow up limited echocardiogram to reassess effusion. * Continue drain management. Clinical Evaluation EBL: 5mL-10mL Procedural Details Procedure Consent Obtained. Pre-Procedure Time Out. Identified patient by full name and date of as verbalized by the patient/guarantor. Does the consent match the physician's order: Yes. Accurate & Complete Informed Consent: Yes. Inpatient/Outpatient History & Physical on Chart: Yes. If H&P is completed, is and addenduem needed: No; If yes, is the addendum complete: N/A. Visualize and Verify Site with Patient/Guarantor: N/A. Relevant Radiology Images available: Yes. The risks, benefits, and alternatives of sedation and/or procedure were discussed by physician. The patient agrees to continue. Procedure started. Correct patient, site and procedure confirmed by cath team. Current diagnosis: pericardial effusion. PERRLA. Strong, equal hand analytics analyst bilaterally. Lungs clear x 5 lobes. IV Site on Arrival: right TLSC. IV Fluids: 0.9% NaCl at KVO. 300 mL infused prior to laborer high density press. Oxygen started at 4liters/min via nasal canula. the chest was prepped with chloroprep then draped in the usual sterile fashion. Physician notified. Baseline sample Acquired. HR: 91 BPM. Equipment: 6F - Femoral. Cardiac Cath Pack. ACIST Manifold Kit Model BT 2000. Kit, Micropuncture. Physician arrived. Physician scrubbed in. Immediate Pre-Procedure Time Out. Correct Patient: Yes; Correct Procedure: Yes; Correct Site: Yes; Correct Patient Position: Yes; Correct Supplies: Yes; Dried Flammable Prep: Yes; Blood Products Available: N/A;. Lidocaine 1% infiltrated to the left xyphoid. Pericardial kit needle in. Norepi gtt at 8mcg/min on arrival to the laborer high density press. NS infusing at 100ml/hr. Pericardial access obtained using ultrasound guidance. Dilator in over the access wire. access wire out, standard J wire in. Dilator out. 5fr UF catheter in over the standard J wire. Standard J wire out. Pericardial fluid pulled and 2 500cc syringes were sent to the lab for analysis. A total of 1000ml of pericardial fluid was pulled. Post pericardiocentesis ultrasound was obtained. The UF catheter was sutured into position with 2-0 silk and sterile Bio-Patch and Op-site applied over the site. No oozing or signs and symptoms of hematoma noted. Dr. Rogers scrubbed out. Norepi gtt titrated down to 6mcg/min. PERRLA. Strong, equal hand analytics analyst bilaterally. No VTE prophylaxis required. Medication's Wasted: Other = Versed 1 mg. Medication's Wasted: Other = Fentanyl 75 mcg. Total IV fluids: 50 mL. Lidocaine 1% infiltrated to the left xyphoid. Post-op diagnosis: S/P percardiocentesis. Complications: none. Estimated blood loss: 5mL-10mL. Responsiveness - Normal response to verbal stimuli; alert and oriented, PERRLA. Airway - Unaffected, no intervention required; spontaneous ventilation. Circulation: W/N/L, pulses unchanged. Nausea/Vomiting: No. Procedure completed. Patient transferred by bed to ICU. Vital chart was stopped. Procedure Medications Start: 8:35 PM Stop: 8:35 PM Medication: Versed Amount: 1 mg Route: I.V. Start: 8:37 PM Stop: 8:37 PM Medication: Fentanyl Amount: 25 mcg Route: I.V. I, the attending physician, have reviewed and verified all procedure medications. Yes, all medications given per verbal order Report Signatures Finalized by Jules Rogers MD on 09/10/2023 04:28 PM
--- NOTE | 2023-09-07 20:16 | PC.NURSE ---
Addendum entered by Iona Glez RN 09/07/23 22:20: On pts arrival 775ml emptied from pericardial drain + 150ml sent to lab. Total added to Intake and Output . Addendum entered by Iona Glez RN 09/07/23 22:04: Returned to ICU 7 from cathode ray tube salvage processor @3611. Pt connected to continuos monitoring. Levophed running @6mcg/min. Dr. Rogers on unit shortly after. Verbal order for stat limited echo and to use a 20cc syringe to pull from pericardial cath 3 to 4 times over night to prevent occlusion- start @5040. Original Note: Pen Ruler Operator: Pt left w/ cathode ray tube salvage processor team @2015
--- NOTE | 2023-09-07 20:20 | P.CONIM_ITS ---
Providers/Reason For Consult 2 Consulting Physician/Specialty*: Jules Rogers MD/ Cardiology Reason for Consult*: Tamponade Requesting Physician: Dr Goodson Attending Physician: Karsten Agrawal History of Present Illness History of Present Illness Arianne Archer is a 62 year old female with past medical history of hypertension, diabetes, end-stage renal disease on peritoneal dialysis who presented to hospital with syncope. Was found to be hypotensive. Also had tachycardia. WBC count is elevated. Echocardiogram was performed that is showing large sized pericardial effusion with signs of early tamponade. She is drowsy. EKG shows sinus tachycardia with low amplitude waves. She has shortness of breath. Review of Systems 2 Const: Denies: fever(s), chills, body aches or malaise ENMT: Denies: throat pain or oral sores Card: Reports: dyspnea on exertion; Denies: chest pain, edema or pre-syncope Resp: Denies: dyspnea, productive cough, change in phlegm color or hemoptysis GI: Denies: abdominal pain, nausea, vomiting, diarrhea, constipation, hematochezia or melena : Denies: flank pain, urinary frequency or hematuria Musc: Denies: back pain, joint swelling or joint redness Skin/Breast: Denies: rash or new lesions Medications/Allergies Home Medications Medication Instructions Recorded Confirmed Last Taken Type vit B,C-folic ac 800 mcg-zinc 12.5 1 tab PO DAILY 08/18/20 09/07/23 09/04/23 History mg-selen-D3 2,000 unit-vit E tablet (RenaPlex-D) flash glucose scanning reader #1 ea 12/03/22 09/07/23 Unknown Rx (FreeStyle Neo 2 [place]) flash glucose sensor (FreeStyle #2 ea 12/03/22 09/07/23 Unknown Rx Neo 2 Sensor kit) blood-glucose sensor (FreeStyle #6 ea 04/12/23 09/07/23 Unknown Rx Neo 3 Sensor device) glipizide 10 mg tablet, extended 10 mg PO DAILY 04/12/23 09/07/23 09/04/23 History release 24 hr amlodipine 5 mg tablet 5 mg PO DAILY 04/25/23 09/07/23 09/04/23 History atorvastatin 40 mg tablet 40 mg PO DAILY #30 tabs 05/04/23 09/07/23 09/05/23 Rx metoprolol succinate 50 mg 50 mg PO BID #60 tabs 05/04/23 09/07/23 09/04/23 Rx tablet,extended release 24 hr insulin detemir U-100 100 unit/mL 40 unit (0.4 mL) SUBCUT DAILY #25 06/10/23 09/07/23 09/04/23 Rx (3 mL) subcutaneous pen (Levemir mL FlexPen) wheelchair #1 ea 07/08/23 09/07/23 Unknown Rx amoxicillin 875 mg-potassium 1 tab PO BID #7 tabs 09/05/23 09/07/23 Unknown Rx clavulanate 125 mg tablet aspirin 81 mg tablet,delayed 81 mg PO DAILY 09/05/23 09/07/23 09/05/23 History release benzonatate 200 mg capsule 100 mg (1/2 x 200 mg) PO TID Cough 09/05/23 09/07/23 Unknown Rx #30 caps calcium carbonate 500 mg calcium 500 mg PO DAILY 09/05/23 09/07/23 09/04/23 History (1,250 mg) tablet cephalexin 500 mg capsule 500 mg PO DAILY 09/05/23 09/07/23 09/05/23 History guaifenesin 1,200 mg tablet, 1,200 mg PO BID #14 tabs 09/05/23 09/07/23 Unknown Rx extended release 12 hr potassium chloride 20 mEq 20 meq PO DAILY 09/05/23 09/07/23 09/04/23 History tablet,extended release(part/cryst) sevelamer carbonate 800 mg tablet 2,400 mg PO BID 09/05/23 09/07/23 09/04/23 History Allergies Allergy/AdvReac Type Severity Reaction Status Date / Time allopurinol Allergy ADR-Faintin Verified 09/05/23 14:24 g Iodinated Contrast Media Allergy Unknown Verified 09/05/23 14:24 loratadine [From Claritin-D] Allergy Heart Verified 09/05/23 14:24 Palpatations pseudoephedrine Allergy Heart Verified 09/05/23 14:24 [From Claritin-D] Palpatations Current Medications Generic Name Dose Route Start Last Admin Trade Name Freq PRN Reason Stop Dose Admin Heparin Sodium (Porcine) 0 unit 09/07/23 11:55 09/07/23 14:01 Heparin 5,000 Unit/Ml Inj 1 Ml IV 4,000 unit PRN PRN Administration Heparin weight-base protocol Protocol norepinephrine 4 mg in 250 mls @ 0 mls/hr 09/07/23 12:00 09/07/23 19:56 Levophed IV 8 mcg/min .Q0M AZIZA 30 mls/hr Titration Protocol Per Protocol Heparin Sodium/Sodium Chloride 25,000 unit in 500 mls @ 0 mls/hr 09/07/23 12:00 09/07/23 19:27 Heparin Drip IV 0 unit/kg/hr .Q0M AZIZA 0 mls/hr Titration Protocol Per Protocol Sodium Chloride 1,000 mls @ 999 mls/hr 09/07/23 19:51 09/07/23 19:58 Sodium Chloride 0.9% IV 09/07/23 20:51 999 mls/hr .Q1H1M ONE Administration Insulin Human Lispro 0 unit 09/07/23 17:00 09/07/23 17:56 Insulin Lispro 100 Unit/1 Ml SUBCUT Not Given Q6H AZIZA Protocol Ondansetron HCl 4 mg 09/07/23 16:37 09/07/23 19:48 Ondansetron 2 Mg/Ml Sdv 2 Ml IVP 4 mg Q8H PRN Administration vomiting, or N/V if npo Pantoprazole Sodium 40 mg 09/07/23 16:37 09/07/23 17:35 Pantoprazole 40 Mg Sdv IVP 40 mg Q24H AZIZA Administration Sevelamer Carbonate 2,400 mg 09/07/23 18:00 09/07/23 18:14 Sevelamer 800 Mg Tablet PO Not Given BID AZIZA PFSH Acute 2 PFSH: Medical History Hyperlipidemia, mixed Essential hypertension Environmental and seasonal allergies Diabetes mellitus with hyperglycemia, with long-term current use of insulin Peritoneal dialysis status Dyslipidemia CRF (chronic renal failure) DVT (deep venous thrombosis) Surgical History Status post colonoscopy (12/11/20) polyp, diverticulosis, internal hemorrhoids Peritoneal dialysis catheter in situ History of parathyroid surgery S/P IVC filter Hx of hysterectomy Family History Father Cancer Denies family history of Anesthesia complication Bleeding disorder Social History Smoking and tobacco/nicotine status: former use of tobacco/nicotine Second hand smoke exposure: No Alcohol intake: never Substance/Drug Use: never Adopted: No Caregiver/support person: No Lives independently: Yes Household members: none Housing: House Marital status: Number of children: 3 Highest education level completed: Some College, No Degree service: No Current occupational status: disabled Vitals/I&O/Wt Last Vital Signs Temp 97.8 F 09/07/23 20:00 Pulse 95 09/07/23 20:00 Resp 18 09/07/23 20:00 BP 99/66 09/07/23 20:00 Pulse Ox 100 09/07/23 20:00 O2 Del Method Nasal Cannula 09/07/23 20:00 O2 Flow Rate 3 09/07/23 20:00 09/07/23 09/07/23 09/07/23 06:59 14:59 22:59 Intake Total 1050 / 1050 1061.238 / 2111.238 Balance 1050 / 1050 1061.238 / 2111.238 Weight last 48 hrs Weight 210 lb Physical Exam 2 Narrative: GENERAL: Patient is Drowsy NECK: No jugular vein distension. [] HEENT: No cyanosis. No icterus. No pallor. [] HEART: Regular S1 and S2. No murmur, rub or gallop. [] LUNGS: Clear to auscultate bilaterally. [] ABDOMEN: Soft, nontender and nondistended. Positive bowel sounds. No guarding, rebound or tenderness. [] CENTRAL NERVOUS SYSTEM: Grossly nonfocal. [] EXTREMITIES: Lower extremities with 1+ edema bilaterally. Pulses palpable in the lower extremities, both dorsalis pedis and posterior tibial. [] Data 09/09/23 05:00 09/09/23 05:00 A&P Assessment and plan (1) Pericardial effusion: (2) Cardiomegaly: (3) Hypotension: Qualifiers: Hypotension type: unspecified hypotension type Qualified Code(s): I95.9 - Hypotension, unspecified (4) Essential hypertension: (5) Hyperlipidemia, mixed: (6) Troponin level elevated: (7) Diabetes mellitus with hyperglycemia, with long-term current use of insulin: Plan Patient has presented with syncope, tachycardia and hypotension. Early features of tamponade are seen on echocardiogram. We will proceed with emergent pericardiocentesis. Continue IV fluids. WBC count was elevated. Possibly has concurrent sepsis. Nephrology is onboard. Thank you for involving us with care of this patient. We will continue to follow. Please call with questions. Consult Attestations 2 Medical Necessity Statement: Care expected to cross 2 midnights. Coding Level of Care Code Acute Code for g Fwd Diagnoses Pericardial effusion I31.39 Cardiomegaly I51.7 Hypotension I95.9 Hypotension type: unspecified hypotension type Essential hypertension I10 Hyperlipidemia, mixed E78.2 Troponin level elevated R79.89 Diabetes mellitus with hyperglycemia, with long-term current use of insulin E11.65; Z79.4
--- NOTE | 2023-09-07 20:26 | W.PM.OPSUD ---
Surgery/Procedure H&P Update DATE OF PROCEDURE: September 07, 2023 DATE H&P PERFORMED: 09/07/23 H&P UPDATE INFORMATION: I have reviewed H&P completed within last 30 days, I have examined patient prior to procedure and No changes to prior documentation PREOP DIAGNOSIS: Large pericardial effusion/tamponade PRIMARY INDICATION FOR PROCEDURE: Large pericardial effusion/tamponade PLANNED PROCEDURE: Pericardiocentesis PATIENT REASSESSED PRIOR TO SEDATION, WITH NO CHANGE NOTED: Yes PHYSICAL EXAM: alert and oriented x 3 OTHER PERTINENT EXAM FINDINGS: Tachycardic AIRWAY EVAL/ANESTHESIA PLAN: normal airway, ASA III, Local Anesthesia, Risks, benefits & alternatives of sedation and/or procedure discussed and Patient agrees to continue as planned ADDITIONAL INFORMATION: Moderate sedation
[2023-09-07 21:16] LABS: Cyto Order Verification Order Verified
--- NOTE | 2023-09-07 21:22 | PM.PROC ---
Procedure Note: Date of procedure: 09/07/23 Pre-procedure diagnosis: Tamponade/large pericardial effusion Post-procedure diagnosis: other (Minimal pericardial effusion) Procedure: Pericardiocentesis: Using sterile technique, under ultrasound and fluoroscopic guidance, we advanced a pericardiocentesis needle into pericardial space. We then advanced a J-wire into pericardial space. This was followed by placement of pericardial drain. 1000 cc of yellowish clear fluid was drained in the [facility]. Fluid was sent for lab evaluation. Drain was left in place for further evacuation. Patient left the [facility] in a stable condition Op report anesthesia: Local and Other (Moderate sedation) Performing Provider: Jules Rogers Estimated blood loss (mL): 0 Complications: None Pathology: other (Pericardial fluid sent for analysis) Condition: stable Disposition: ICU Coding Level of Care Code Acute Code for Chg Fwangel
--- NOTE | 2023-09-07 21:25 | USCV_ITS ---
Arianne Archer Age: 62 Gender: F : 1960 Exam Date: 09/07/2023 22:25 Ordering Phys: Jules Rogers M.D ([email or web address]) Technologist: YOLANDE Exam Location: [facility] – [place] Indication: post pericardiocentesis LIMITED STUDY BP: 106 / 62 HR: 96 Rhythm: Sinus Technical Quality: Adequate MEASUREMENTS (Male / Female) Normal Values 2D ECHO LV Diastolic Diameter PLAX 4.2 cm 4.2 - 5.9 / 3.9 - 5.3 cm LV Systolic Diameter PLAX 3.0 cm IVS Diastolic Thickness 1.2 cm 0.6 - 1.0 / 0.6 - 0.9 cm IVS Systolic Thickness 2.0 cm LVPW Diastolic Thickness 1.3 cm 0.6 - 1.0 / 0.6 - 0.9 cm LVPW Systolic Thickness 1.0 cm LV Ejection Fraction 2D Teich 55.5 % LV Ejection Fraction MOD 2C 62.5 % LV Ejection Fraction 2C AL 62.4 % FINDINGS Left Ventricle Right Ventricle Right Atrium Left Atrium Mitral Valve Aortic Valve Tricuspid Valve Pulmonic Valve Pericardium Aorta IVC CONCLUSIONS This is a limited echocardiogram performed to assess pericardial effusion post pericardiocentesis. Very minimal amount of pericardial effusion is seen. LV systolic function is normal. Compared to prior echocardiogram performed earlier today, pericardial effusion has significantly improved. Jules Rogers MD (Electronically Signed) Final Date: 08 September 2023 17:20 S
[2023-09-07 22:13] LABS: Pericardial Fluid Appearance Clear (Clear); Pericardial Fluid Color Yellow (Pale Yellow)
[2023-09-07 22:22] LABS: Erythrocyte Sedimentation Rate 31 mm/hr (0-15)
[2023-09-07] MEDS: norepinephrine 4 MG/250 ML BAG 22.5 MG IV (22:30)
[2023-09-07 22:32] LABS: Mononuclear #, Pericardial Fl 0.092 10^3/uL; Polynuclear # Cells, Peri 0.024 10^3/uL; RBC Pericardial Fluid 0 10^3/uL; WBC Pericardial Fluid 116 /uL
[2023-09-07 22:33] LABS: Albumin Body Fluid 2.3 g/dL; Triglycerides, Pleural Fluid 18 mg/dL
[2023-09-07 22:34] LABS: LDH Pericardial Fluid 126 U/L; Pericardial Fluid Total Prot 3.9 g/dL
[2023-09-07 22:40] LABS: C Reactive Protein 14.9 mg/L (0.0-4.9); Lactate Dehydrogenase 259 U/L (135-214)
[2023-09-07 22:41] LABS: PATH Referral YES
[2023-09-07 22:47] LABS: Procalcitonin 1.15 ng/mL (0-0.5)
[2023-09-07 23:02] LABS: Hepatitis A Antibody IgM Non-Reactive (Nonreactive); Hepatitis B Core IgM Non-Reactive (Nonreactive); Hepatitis B Surface Antigen Non-Reactive (Nonreactive); Hepatitis C Virus Antibody Non-Reactive (Nonreactive)
[2023-09-07 23:11] LABS: HIV 1 & 2 Antibody Non-Reactive (Non-Reactiv); HIV 1 & 2 Antigen Non-Reactive (Non-Reactiv)
[2023-09-08] VITALS (95 sets, daily range): BP systolic 75–126; BP diastolic 44–82; PULSE 68–112; RESP 12–33; TEMP 36.4–36.9; O2SAT 83–100; BMI 39.6
[2023-09-08] MEDS: piperacillin-tazobactam 3.375 GM in sodium chloride 0.9% (plus) 50 ML IV ×2 (01:34→14:02)
--- NOTE | 2023-09-08 01:38 | P.PNCC_ITS ---
Critical Care Event Note The high probability of a clinically significant, sudden or life threatening deterioration of the patient's [] system(s) required my full and direct attention, intervention and personal management. The critical care time is as shown. This time is in addition to time spent performing any reported procedures but includes the following: [x] Data and vital sign review and interpretation [x] Patient assessment, examination and intervention [x] Documentation [x] Medication orders and management Critical Care Time Code activated: No Critical Care Time (min): 50 Additional information about critical care time: I was called roughly at [address] croft, patient's echocardiogram shows evidence of large pericardial effusion, with concerns for tamponade physiology -I immediately examined patient in the intensive care unit, she is alert oriented x 3, following all commands, heart rates in the 100s, sinus rhythm, blood pressures are maps greater than 65 but she is on 8 of Levophed, does report feeling short of breath, does report feeling lightheaded -I had a detailed discussion with patient's mother at bedside, and I spoke to patient's twin over the phone -According to patient's family, for the last month or so patient has had episodes of feeling weak and fatigued, she has not ambulated in over a month she has been wheelchair-bound -She has had multiple falls, significant so much so that they have had to call out the varnish blender and the fire department to help her off the ground -But in the last 2 weeks, her symptoms have accelerated due to significant fatigue, weakness, -Yesterday afternoon, patient had an episode in which she was sitting in her wheelchair and she passed out became unresponsive lasting for a few minutes, her eyes rolled back, she was nonresponsive, no seizure-like episodes no facial droop no slurring her words -The episode happened again today, which she was getting back to the wheelchair and she became limp, unresponsive, lasting a few minutes, eyes rolled back, at that time her blood pressures were low when EMS arrived -Here she is in shock, requiring 8 of Levophed, heart rates at times are in the 110s sinus tachycardia, but right now she is heart rates in the 100 normal sinus rhythm -She denies any fevers, no chills, no cough, -During my discussion, patient had an episode becoming unresponsive, lasting about 30 seconds she was complaining of feeling severely nauseous, and short of breath she became unresponsive, heart rates in the 110s, blood pressures remaining normotensive MAP greater than 65, after about 30 seconds she became much more alert and awake, alert oriented x 4 -I had a detailed discussion with cardiology, plan is on emergent pericardiocentesis in the [facility] however if her condition deteriorates in the meantime can do an emergent pericardiocentesis with the help of the ER -I also the ER doctor, just in case if she crashes, would be willing to help with emergent pericardiocentesis -I had a detailed discussion with patient's family about pericardiocentesis, risks and benefits of procedure, the possibility of requiring surgical intervention, possibly a pericardial drain, risk of infection, risk of bleeding, risk of cardiac trauma, after discussing the risk and benefits, patient and mother voiced understanding, all questions answered, agreed to proceed -due to pericardial effusion heparin drip was stopped -I have added vancomycin to her Zosyn -Ordered pericardial effusion studies -Patient was monitored in the ICU until cardiology arrived, plans on emergent pericardiocentesis -Patient was taken to cardiac [facility], seen in cardiac [facility], she had roughly a liter removed of pericardial fluid -Since then her blood pressures are much more reasonable, will wean off Levophed -Monitor in ICU closely Coding Level of Care Code Acute Code for Rosa Maria Oliva
[2023-09-08 04:48] LABS: Glucose Point of Care 103 mg/dL (70-110)
[2023-09-08 04:48] LABS: Glucose Point of Care 88 mg/dL (70-110)
[2023-09-08 04:59] LABS: Basophils % 0.2 %; Eosinophils % 0.3 %; Hematocrit 26.8 % (36-47); Lymphocytes # 1.4 10^3/uL (0.8-4.8); Lymphocytes % 9.3 %; Mean Corpuscular HGB Conc 32.5 g/dL (30-55); Mean Corpuscular Hemoglobin 34.9 pg (27-33); Mean Corpuscular Volume 107.6 fl (85-98); Mean Platelet Volume 10.5 fL (7.4-10.4); Monocytes # 0.5 10^3/uL (0.2-0.9); Monocytes % 3.1 %; Neutrophils # 12.64 10^3/uL (1.8-7.7); Neutrophils % 85.4 %; Nucleated Red Blood Cells # 0.1 /100WBC; Nucleated Red Blood Cells % 0.3 %; Platelet Count 172 10^3/cmm (157-399); Red Blood Count 2.49 10^6/uL (3.85-5.65)
[2023-09-08 05:29] LABS: Alanine Aminotransferase 26 U/L (0-33); Albumin Level 2.2 g/dL (3.5-5.2); Alkaline Phosphatase 75 U/L (35-105); Anion Gap 18.7 (5-19); Aspartate Amino Transferase 21 U/L (0-32); Blood Urea Nitrogen 80 mg/dL (8-23); Calcium 8.1 mg/dL (8.5-10.5); Carbon Dioxide 20 mmol/L (22-29); Chloride 97 mmol/L (98-107); Globulin 2.5 g/dL (1.3-4.6); Glomerular Filtration Rate 3.4 mL/min (90-130); Glucose 83 mg/dL (65-115); Magnesium 1.9 mg/dL (1.7-2.3); Osmolality Calculated 295 mOsm/kg (285-295); Potassium 4.7 mmol/L (3.5-5.1); Sodium 131 mmol/L (136-145); Total Bilirubin 0.3 mg/dL (0.15-1.2); Total Protein 4.7 g/dL (6.6-8.7)
[2023-09-08 08:09] LABS: Glucose Point of Care 89 mg/dL (70-110)
--- NOTE | 2023-09-08 09:34 | P.PN_ITS ---
Subjective 2 Subjective: denies any complaints Medications: Reviewed: Yes Vitals/I&O/Wt Last Vital Signs Temp 97.6 F 09/08/23 08:00 Pulse 69 09/08/23 08:00 Resp 17 09/08/23 08:00 BP 106/57 09/08/23 08:00 Pulse Ox 98 09/08/23 08:00 O2 Del Method Room Air 09/08/23 06:15 O2 Flow Rate 3 09/07/23 22:15 09/07/23 09/08/23 09/08/23 22:59 06:59 14:59 Intake Total 1629.238 / 2679.238 165.250 / 2844.488 Output Total 925 / 925 150 / 1075 Balance 704.238 / 1754.238 15.250 / 1769.488 Weight last 48 hrs Weight 95.254 kg Weight 95.254 kg Physical Exam 2 Narrative: Patient is awake, alert, not in distress Data 09/08/23 04:42 09/08/23 04:42 A&P Assessment and plan (1) Peritoneal dialysis status: Plan 1. End-stage renal disease: On peritoneal dialysis . Patient is hypotensive and was found to have large pericardial effusion with tamponade and plan for urgent pericardiocentesis -Held peritoneal dialysis last night due to hypotension s, she is currently on pressors -Will do gentle PD-1.5% dextrose solution with 2 exchanges, will discuss with patient's straight edger Dr. Pineda regarding PD failure, given patient has developed possible uremic pericarditis -Continue to monitor labs and volume status 2. Pericardial effusion with tamponade, status post pericardiocentesis ,cardiology following 3. Hyponatremia: Mild, monitor 4. Anemia : Hemoglobin of 8.7, will order ANNA Patient evaluated using audiovisual cart. Time spent 20 minutes. Attestations 2 Medical Necessity Statement*: per mediicne team Coding Level of Care Code Acute Code for Chg Fwd Diagnoses Peritoneal dialysis status Z99.2
[2023-09-08] MEDS: citric acid-sodium citrate 30 mL UDC PO (09:44)
[2023-09-08] MEDS: aspirin 81 mg EC Tablet PO (09:45)
[2023-09-08] MEDS: norepinephrine 4 MG/250 ML BAG 30 MG IV ×2 (11:37→19:24)
[2023-09-08] MEDS: Dianeal low Ca w/1.5% dex 2,000 mL Bag 2000 ML INTRAPERIT (11:53)
[2023-09-08 13:07] LABS: Glucose Point of Care 150 mg/dL (70-110)
[2023-09-08] MEDS: nystatin 100,000 unit/mL UDC 5 mL 400000 UNIT PO ×3 (14:03→22:45)
[2023-09-08] MEDS: albumin 25 G/100 ML VIAL IV (14:48)
--- NOTE | 2023-09-08 16:54 | P.PN_ITS ---
Subjective 2 Subjective: Patient is drowsy. No significant output from pericardial drain. Drain removed Vitals/I&O/Wt Last Vital Signs Temp 98.4 F 09/08/23 12:30 Pulse 99 09/08/23 15:45 Resp 24 H 09/08/23 15:45 BP 98/63 09/08/23 15:45 Pulse Ox 97 09/08/23 15:45 O2 Del Method Room Air 09/08/23 06:15 O2 Flow Rate 3 09/07/23 22:15 09/08/23 09/08/23 09/08/23 06:59 14:59 22:59 Intake Total 165.250 / 2844.488 151.25 / 151.25 Output Total 150 / 1075 150 / 150 Balance 15.250 / 1769.488 1.25 / 1.25 Weight last 48 hrs Weight 210 lb Weight 210 lb Physical Exam 2 Narrative: GENERAL: Patient is Drowsy NECK: No jugular vein distension. [] HEENT: No cyanosis. No icterus. No pallor. [] HEART: Regular S1 and S2. No murmur, rub or gallop. [] LUNGS: Clear to auscultate bilaterally. [] ABDOMEN: Soft, nontender and nondistended. Positive bowel sounds. No guarding, rebound or tenderness. [] CENTRAL NERVOUS SYSTEM: Grossly nonfocal. [] EXTREMITIES: Lower extremities with 1+ edema bilaterally. Pulses palpable in the lower extremities, both dorsalis pedis and posterior tibial. [] Data 09/09/23 05:00 09/09/23 05:00 Micro: Microbiology 09/07/23 20:42 Gram Stain - Final Pericardial Fluid A&P Assessment and plan (1) Pericardial effusion: (2) Cardiomegaly: (3) Hypotension: Qualifiers: Hypotension type: unspecified hypotension type Qualified Code(s): I95.9 - Hypotension, unspecified (4) Essential hypertension: (5) Hyperlipidemia, mixed: (6) Troponin level elevated: (7) Diabetes mellitus with hyperglycemia, with long-term current use of insulin: Plan Repeat echocardiogram demonstrated no significant effusion. Drain removed today. Sepsis therapy per primary team. Thank you for involving us with care of this patient. We will continue to follow. Please call with questions. Attestations 2 Medical Necessity Statement*: Care expected to cross 2 midnights. Coding Level of Care Code Acute Code for Chg Fwd Diagnoses Pericardial effusion I31.39 Cardiomegaly I51.7 Hypotension I95.9 Hypotension type: unspecified hypotension type Essential hypertension I10 Hyperlipidemia, mixed E78.2 Troponin level elevated R79.89 Diabetes mellitus with hyperglycemia, with long-term current use of insulin E11.65; Z79.4
[2023-09-08 17:43] LABS: Glucose Point of Care 288 mg/dL (70-110)
[2023-09-08] MEDS: insulin lispro 100 unit/1 mL SUBCUT ×2 (17:51→23:07)
[2023-09-08] MEDS: pantoprazole 40 mg SDV IVP (17:51)
[2023-09-08] MEDS: albumin 25 G/100 ML BAG 60 G IV (22:44)
--- NOTE | 2023-09-08 22:51 | P.PN_ITS ---
Subjective 2 Subjective: Denies any symptoms. No abdominal pain. No nausea vomiting or diarrhea. She is hungry and would like to eat. However, understands the risk of aspiration. Vitals/I&O/Wt Last Vital Signs Temp 98.4 F 09/08/23 12:30 Pulse 99 09/08/23 18:00 Resp 20 H 09/08/23 18:00 BP 126/80 09/08/23 18:00 Pulse Ox 96 09/08/23 18:00 O2 Del Method Room Air 09/08/23 06:15 O2 Flow Rate 3 09/07/23 22:15 09/08/23 09/08/23 09/08/23 06:59 14:59 22:59 Intake Total 165.250 / 2844.488 151.25 / 151.25 2576.500 / 2727.750 Output Total 150 / 1075 150 / 150 4150 / 4300 Balance 15.250 / 1769.488 1.25 / 1.25 -1573.500 / -1572.250 Weight last 48 hrs Weight 95.254 kg Weight 95.254 kg Physical Exam 2 Narrative: Visited by family. Const: COMMON NORMALS: patient oriented x3 and alert GENERAL APPEARANCE: c ooperative ORIENTATION/CONSCIOUSNESS: Yes awake HENMT: COMMON NORMALS: oropharynx normal Neck/C-Spine: COMMON NORMALS: no JVD Resp: COMMON NORMALS: normal respiratory effort and clear to auscultation bilaterally AUSCULTATION: clear to auscultation bilaterally Cardio: COMMON NORMALS: no JVD, regular rhythm, S1 normal heart sound present, S2 normal heart sound present and No murmurs present (Cardio) RHYTHM: regular rhythm HEART SOUNDS: S1 normal heart sound present and S2 normal heart sound present GI: COMMON NORMALS: Normal to inspection, nondistended, normoactive bowel sounds present, Soft to palpation and non-tender PALPATION: Yes Soft to palpation : OTHER: Erythema resolved around PD catheter. Extremity: COMMON NORMALS: no joint enlargement and no pedal edema Neuro: COMMON NORMALS: patient oriented x3 and moves all extremities S ENSORIUM/ORIENTATION: Yes alert Skin: NARRATIVE SKIN EXAM: Overall, 3 cm at least stage II pressure ulceration with necrotic border under medial left breast. No tunneling, no drainage. OTHER: Ichthyosis bilateral lower extremities. Data 09/08/23 04:42 09/08/23 04:42 Micro: Microbiology 09/07/23 20:42 Anaerobic Culture - Preliminary Pericardial Fluid 09/07/23 20:42 Gram Stain - Final Pericardial Fluid A&P Assessment and plan (1) Pericardial effusion: Large pericardial effusion with tamponade features identified on echocardiogram, underwent pericardiocentesis. Reviewed vitals, CBC, CMP. Discussed with cardiology. Reviewed cardiology note. 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 Elevated BUN, ineffectual peritoneal dialysis due to machine malfunction at home. This is being addressed to arrange for service/replacement. Good response to pericardiocentesis on review of repeat echocardiogram. Low output today, pericardial drain may come out per discussion with cardiology. However, she is still hypotensive, per discussion likely other cause, possibly septic shock or other cause. (2) Hypotension: Still in shock despite relief of pericardial effusion, per discussion likely other cause, possibly septic shock. Discussed with nephrology regarding hypotension. She is receiving peritoneal dialysis. Given albumin as per discussion with nephrology and cardiology. Shock, possible septic shock, continue empiric antibiotic coverage. Peritoneal studies have been requested but not collected, sent out after peritoneal dialysis today. Follow-up. Some reports of possible recent pneumonia, chest x-ray not grossly suggestive of pneumonia, but some haziness in right middle lobe. Additionally recently redness around peritoneal dialysis catheter, was treated with a course of antibiotic, redness did resolve. Family deny any cloudy dialysate. Blood culture and peritoneal dialysate culture are requested. Continue n.p.o. for now given risk of aspiration, supine positioning due to persistent shock. Pending MBS. UA is ordered, follow-up urine studies. Ultrasound of wound under left breast. No noted abscess. Possible calciphylaxis?. Qualifiers: Hypotension type: unspecified hypotension type Qualified Code(s): I95.9 - Hypotension, unspecified (3) CRF (chronic renal failure): Peritoneal dialysis. With uremia, uremic pericarditis. Current renal failure, with noted anion gap acidosis, noted worsened creatinine both in and currently, as well as elevated BUN, potassium looks okay. It appears PT may not be effective, when discussed with family, they state that machine has not been working properly over the last week or so. Previously lab work was better. She only gets PD for 11 hours a day through [employer]. Nephrology consultation is requested. (4) Peritoneal dialysis status: Obtain dialysis dialysate cultures. (5) Sepsis: As above (6) Syncope and collapse: Likely secondary to hypotension, sepsis, additional cardiac evaluation as below. (7) Troponin level elevated: Status post pericardiocentesis, heparin drip was held. Hypotensive on presentation. Possibly demand ischemia secondary to sepsis, septic shock. However, cardiac function is unknown. Obtain TTE. Complete troponin EKG series. She is free of chest pain. With possible demand ischemia will further benefit from additional cardiac risk stratification. With possible NSTEMI, continue aspirin, not a candidate for beta-veronica at this time. (8) Dysphagia: Family report dysphagia over the last at least several days, she has had previously some small strokes. They were wondering if she may have had some additional small strokes. On pharyngeal exam I do not see any tonsillomegaly, no posterior pharyngeal erythema. She is having some secretions, some difficulty coughing up secretions, has been having some dysphagia with food and drink. Will keep n.p.o. for now with sepsis, septic shock, concern for aspiration risk. Once ready will need speech therapy evaluation, once able to tolerate MBS. Obtain CT head. Continue aspirin. (9) Pressure ulcer: No abscess on ultrasound. Pressure injury? She seems to favor laying on the left side as per patient ever Since her past strokes. Possible calciphylaxis. Underneath left breast. Wound care requested. (10) Cardiomegaly: Pericardial effusion as above. Plan Goals of care discussion: She would want attempted resuscitation in case of cardiopulmonary arrest. Family are in the process of finalizing DPOA paperwork. Recent cellulitis around PD catheter. Resolved after completion of antibiotic course. History of DVT, status post IVC filter HLD: Unclear benefit of statin in patients with ESRD on dialysis. Hold statin for now. HTN: Currently hypotensive, hold antihypertensives. DM2: Noted acidosis, anion gap elevated, however, ABG reviewed, pH 7.49. Serum ketones obtained, negative. Urine studies pending. Not likely DKA. Continue sliding scale insulin. Extracts. N.p.o. for now due to dysphagia. Resume consist carbohydrate diet once able to resume oral intake. Other medical problems Attestations 2 Medical Necessity Statement*: Continue admission for assessment of management of shock, suspected septic shock, pericardial effusion status post pericardiocentesis, uremic pericarditis, other medical problems. Coding Level of Care Code Critical Care >/= 30 minutes Critical care time (in minutes): 40 The high probability of a clinically significant, sudden or life threatening deterioration, as referenced in this documentation, required my full and direct attention, intervention and personal management. The critical care time shown is in addition to time spent performing any reported separately billable procedures and includes the following: [x] Data and vital sign review and interpretation [x ] Patient assessment, examination and intervention [x] Medication orders and management [x] Patient/Family updates as able [x] Care Coordination and Documentation. Diagnoses Pericardial effusion I31.39 Hypotension I95.9 Hypotension type: unspecified hypotension type CRF (chronic renal failure) N18.9 Peritoneal dialysis status Z99.2 Sepsis A41.9 Syncope and collapse R55 Troponin level elevated R79.89 Dysphagia R13.10 Pressure ulcer L89.90 Cardiomegaly I51.7
[2023-09-08 22:55] LABS: Glucose Point of Care 199 mg/dL (70-110)
[2023-09-09] VITALS (98 sets, daily range): BP systolic 83–138; BP diastolic 37–119; PULSE 79–114; RESP 11–41; TEMP 36.4–37.2; O2SAT 87–100
--- NOTE | 2023-09-09 | FL_ITS ---
WS: [id number] Modified barium swallow, 09/09/2023 Clinical Data: Oropharyngeal dysphagia Comparison: None. Fluoroscopy time: 2min [id number] # of spot films: 1 Findings: The patient exhibited premature spillage from the oral cavity. With solid foods there was a long oral preparation. There is a trace of aspiration and penetration with liquids. There is minimal residue o n the vallecula and piriforms after the swallowing was completed. The barium tablet passed normally t hrough the oropharynx and hypopharynx. However there was delay in passage in the mid esophagus which may be due to esophageal dysmotility. Impression: 1. Premature spillage from the oral cavity with a long preparation for solid foods in the oral cavity . 2. Trace of aspiration and penetration with liquids 3. Delay in passage of the barium tablet in the midesophagus.
[2023-09-09] MEDS: piperacillin-tazobactam 3.375 GM in sodium chloride 0.9% (plus) 50 ML IV ×2 (01:38→14:13)
[2023-09-09 03:31] LABS: Cyto Order Verification No Order
[2023-09-09 03:39] LABS: Mononuclear #, Pertinoneal Fl 0.057 10^3/uL; Polynuclear # Cells, Perit 0.053 10^3/uL
[2023-09-09 03:40] LABS: Color, Peritoneal Fluid Pale Yellow (Pale Yellow)
[2023-09-09 03:42] LABS: Appearance, Peritoneal Fluid Clear (Clear); RBC Pertioneal Fluid 0 10^3/uL; WBC Peritoneal Fluid 0 /uL
[2023-09-09 05:01] LABS: Glucose Point of Care 130 mg/dL (70-110)
[2023-09-09 05:22] LABS: Basophils % 0.2 %; Eosinophils # 0.1 10^3/uL (0.0-0.8); Eosinophils % 1.1 %; Hematocrit 24.4 % (36-47); Lymphocytes # 1.4 10^3/uL (0.8-4.8); Lymphocytes % 11.3 %; Mean Corpuscular HGB Conc 32.4 g/dL (30-55); Mean Corpuscular Hemoglobin 34.6 pg (27-33); Mean Platelet Volume 10.7 fL (7.4-10.4); Monocytes # 0.5 10^3/uL (0.2-0.9); Monocytes % 4.5 %; Neutrophils # 9.84 10^3/uL (1.8-7.7); Neutrophils % 81.5 %; Nucleated Red Blood Cells % 0.2 %; Platelet Count 144 10^3/cmm (157-399); Red Blood Count 2.28 10^6/uL (3.85-5.65); Red Cell Distribution Width 16.9 % (12.1-15.1); White Blood Count 12.07 10^3/uL (3.29-11.43)
[2023-09-09 05:45] LABS: Vancomycin Random 11.4 ug/mL (20.0-40.0)
[2023-09-09 05:47] LABS: Alanine Aminotransferase 21 U/L (0-33); Albumin Level 2.5 g/dL (3.5-5.2); Alkaline Phosphatase 61 U/L (35-105); Anion Gap 20.5 (5-19); Aspartate Amino Transferase 20 U/L (0-32); Calcium 8.2 mg/dL (8.5-10.5); Carbon Dioxide 19 mmol/L (22-29); Chloride 95 mmol/L (98-107); Globulin 2.2 g/dL (1.3-4.6); Glomerular Filtration Rate 3.1 mL/min (90-130); Glucose 128 mg/dL (65-115); Osmolality Calculated 297 mOsm/kg (285-295); Potassium 4.5 mmol/L (3.5-5.1); Sodium 130 mmol/L (136-145); Total Bilirubin 0.5 mg/dL (0.15-1.2); Total Protein 4.7 g/dL (6.6-8.7)
[2023-09-09 05:51] LABS: Blood Urea Nitrogen 85 mg/dL (8-23)
[2023-09-09] MEDS: norepinephrine 4 MG/250 ML BAG 15 MG IV ×2 (07:15→18:57)
[2023-09-09 07:29] LABS: Glucose Point of Care 136 mg/dL (70-110)
--- NOTE | 2023-09-09 09:13 | P.PN_ITS ---
Subjective 2 Subjective: BP still low , on levophed Medications: Reviewed: Yes Vitals/I&O/Wt Last Vital Signs Temp 97.5 F L 09/09/23 05:45 Pulse 90 09/09/23 07:00 Resp 14 09/09/23 07:00 BP 94/37 09/09/23 07:00 Pulse Ox 95 09/09/23 07:00 O2 Del Method Room Air 09/09/23 07:00 O2 Flow Rate 3 09/07/23 22:15 09/08/23 09/09/23 09/09/23 22:59 06:59 14:59 Intake Total 2626.500 / 2777.750 258.875 / 3036.625 26.25 / 26.25 Output Total 4150 / 4300 0 / 4300 Balance -1523.500 / -1522.250 258.875 / -1263.375 26.25 / 26.25 Weight last 48 hrs Weight 87.997 kg Weight 95.254 kg Weight 95.254 kg Physical Exam 2 Narrative: Patient is awake, alert, not in distress Data 09/09/23 05:00 09/09/23 05:00 Micro: Microbiology 09/07/23 20:42 Anaerobic Culture - Preliminary Pericardial Fluid 09/07/23 20:42 Gram Stain - Final Pericardial Fluid A&P Assessment and plan (1) Peritoneal dialysis status: Plan 1. End-stage renal disease: On peritoneal dialysis . 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 Pineda, given patient has developed possible uremic pericarditis -Continue to monitor labs and volume status 2. Pericardial effusion with tamponade, status post pericardiocentesis ,cardiology following 3. Hyponatremia: Mild, monitor 4. Anemia : Hemoglobin of 7.9 , will order ANNA Patient evaluated using audiovisual cart. Time spent 20 minutes. Attestations 2 Medical Necessity Statement*: per lewis Coding Level of Care Code Acute Code for Chg Fwd Diagnoses Peritoneal dialysis status Z99.2
[2023-09-09] MEDS: albumin 25 G/100 ML BAG 60 G IV ×2 (10:30→17:35)
[2023-09-09] MEDS: sodium chloride 0.9% 1,000 ML 100 ML IV ×2 (10:31→20:59)
[2023-09-09] MEDS: epoetin alfa 1000 Unit/0.05 mL (ESRD) 20000 UNIT SUBCUT (10:32)
[2023-09-09] MEDS: calcium carbonate 500 mg Chew Tablet PO (11:08)
[2023-09-09] MEDS: nystatin 100,000 unit/mL UDC 5 mL 400000 UNIT PO ×4 (11:08→20:59)
[2023-09-09] MEDS: aspirin 81 mg EC Tablet PO (11:08)
[2023-09-09] MEDS: sevelamer 800 mg Tablet 2400 MG PO ×2 (11:08→17:35)
[2023-09-09 11:48] LABS: Glucose Point of Care 235 mg/dL (70-110)
[2023-09-09] MEDS: insulin lispro 100 unit/1 mL SUBCUT ×2 (11:48→17:36)
[2023-09-09 12:34] LABS: CENTROMERE B ANTIBODY <1.0 NEG AI (<1.0 NEG); JO-1 ANTIBODY <1.0 NEG AI (<1.0 NEG); RNP ANTIBODY <1.0 NEG AI (<1.0 NEG); SCL-70 ANTIBODY <1.0 NEG AI (<1.0 NEG); SJOGREN'S ANTIBODY (SS-A) <1.0 NEG AI (<1.0 NEG); SM ANTIBODY <1.0 NEG AI (<1.0 NEG); SS-B <1.0 NEG AI (<1.0 NEG)
--- NOTE | 2023-09-09 13:04 | P.PN_ITS ---
Subjective 2 Subjective: Patient is drowsy. No chest pain. Pericardial drain removed yesterday Vitals/I&O/Wt Last Vital Signs Temp 98.8 F 09/09/23 10:45 Pulse 89 09/09/23 12:15 Resp 13 09/09/23 12:15 BP 104/72 09/09/23 12:15 Pulse Ox 98 09/09/23 12:15 O2 Del Method Room Air 09/09/23 12:15 O2 Flow Rate 3 09/07/23 22:15 09/08/23 09/09/23 09/09/23 22:59 06:59 14:59 Intake Total 2626.500 / 2777.750 258.875 / 3036.625 157.00 / 157.00 Output Total 4150 / 4300 0 / 4300 Balance -1523.500 / -1522.250 258.875 / -1263.375 157.00 / 157.00 Weight last 48 hrs Weight 194 lb Weight 210 lb Physical Exam 2 Narrative: GENERAL: Patient is Drowsy NECK: No jugular vein distension. [] HEENT: No cyanosis. No icterus. No pallor. [] HEART: Regular S1 and S2. No murmur, rub or gallop. [] LUNGS: Clear to auscultate bilaterally. [] CENTRAL NERVOUS SYSTEM: Grossly nonfocal. [] EXTREMITIES: Lower extremities with 1+ edema bilaterally Data 09/10/23 03:49 09/10/23 03:49 Micro: Microbiology 09/09/23 03:14 Gram Stain - Final Peritoneal Fluid 09/07/23 11:40 Blood Culture - Preliminary Blood 09/07/23 20:42 Anaerobic Culture - Preliminary Pericardial Fluid 09/07/23 20:42 Gram Stain - Final Pericardial Fluid A&P Assessment and plan (1) Pericardial effusion: (2) Cardiomegaly: (3) Hypotension: Qualifiers: Hypotension type: unspecified hypotension type Qualified Code(s): I95.9 - Hypotension, unspecified (4) Essential hypertension: (5) Hyperlipidemia, mixed: (6) Troponin level elevated: (7) Diabetes mellitus with hyperglycemia, with long-term current use of insulin: Plan Patient is overall stable. Pericardial fluid analysis not revealing any gram stain on culture positivity. Nephrology on board. Sepsis therapy per primary team. Thank you for involving us with care of this patient. We will continue to follow. Please call with questions. Attestations 2 Medical Necessity Statement*: Care expected to cross 2 midnights. Coding Level of Care Code Acute Code for Chg Fwd Diagnoses Pericardial effusion I31.39 Cardiomegaly I51.7 Hypotension I95.9 Hypotension type: unspecified hypotension type Essential hypertension I10 Hyperlipidemia, mixed E78.2 Troponin level elevated R79.89 Diabetes mellitus with hyperglycemia, with long-term current use of insulin E11.65; Z79.4
[2023-09-09 13:11] LABS: COMPLEMENT, TOTAL (CH50) >60 U/mL (31-60)
--- NOTE | 2023-09-09 13:11 | PC.SOCIAL ---
IMM Update pg 2 of IMM updated and reviewed w/ patient. Copy provided and copy dated, initialed and placed in chart.
[2023-09-09 13:25] LABS: COMPLEMENT COMPONENT C3C 123 mg/dL (83-193); COMPLEMENT COMPONENT C4C 31 mg/dL (15-57)
--- NOTE | 2023-09-09 13:37 | PC.SLP ---
HEAD OF IT followed up the patient at lunch. Family reports good performance with lunch without any coughing/choking episodes. HEAD OF IT will hold off on speech-language assessment due to no significant abnormalities noted on CT of the head.
[2023-09-09] MEDS: vancomycin 1,000 MG in sodium chloride 0.9% 250 ML 250 MG IV (16:04)
[2023-09-09 16:09] LABS: ANA SCREEN, IFA NEGATIVE (NEGATIVE)
[2023-09-09 16:58] LABS: Glucose Point of Care 319 mg/dL (70-110)
[2023-09-09] MEDS: pantoprazole 40 mg SDV IVP (17:35)
--- NOTE | 2023-09-09 20:47 | PM.PN ---
Subjective Subjective: She states she is the same. Denies new symptoms. No abdominal pain. Vitals/I&O/Wt Last Vital Signs Temp 98.9 F 09/09/23 13:15 Pulse 99 09/09/23 18:45 Resp 24 H 09/09/23 18:45 BP 96/63 09/09/23 18:45 Pulse Ox 99 09/09/23 18:45 O2 Del Method Room Air 09/09/23 18:45 O2 Flow Rate 3 09/07/23 22:15 09/09/23 09/09/23 09/09/23 06:59 14:59 22:59 Intake Total 258.875 / 3036.625 393.00 / 393.00 817.125 / 1210.125 Output Total 0 / 4300 Balance 258.875 / -1263.375 393.00 / 393.00 817.125 / 1210.125 Weight last 48 hrs Weight 87.997 kg Weight 95.254 kg Physical Exam Narrative: Sitting up in the chair. Const: COMMON NORMALS: patient oriented x3 and alert GENERAL APPEARANCE: cooperative ORIENTATION/CONSCIOUSNESS: Yes awake HENMT: COMMON NORMALS: oropharynx normal Neck/C-Spine: COMMON NORMALS: no JVD Resp: COMMON NORMALS: normal respiratory effort and clear to auscultation bilaterally AUSCULTATION: clear to auscultation bilaterally Cardio: COMMON NORMALS: no JVD, regular rhythm, S1 normal heart sound present, S2 normal heart sound present and No murmurs present (Cardio) RHYTHM: regular rhythm HEART SOUNDS: S1 normal heart sound present and S2 normal heart sound present GI: COMMON NORMALS: Normal to inspection, nondistended, normoactive bowel sounds present, Soft to palpation and non-tender PALPATION: Yes Soft to palpation : OTHER: No erythema around PD catheter. Extremity: COMMON NORMALS: no joint enlargement and no pedal edema Neuro: COMMON NORMALS: patient oriented x3 and moves all extremities SENSORIUM/ORIENTATION: Yes alert Skin: NARRATIVE SKIN EXAM: Overall, 3 cm at least stage II pressure ulceration with necrotic border under medial left breast. No tunneling, no drainage. OTHER: Ichthyosis bilateral lower extremities. Data 09/09/23 05:00 09/09/23 05:00 Micro: Microbiology 09/07/23 20:42 Anaerobic Culture - Preliminary Pericardial Fluid 09/07/23 20:42 Gram Stain - Final Pericardial Fluid Body Fluid Culture - Preliminary 09/09/23 03:14 Gram Stain - Final Peritoneal Fluid 09/07/23 11:40 Blood Culture - Preliminary Blood A&P Assessment and plan (1) Hypotension: Continues on pressor support. Given albumin last night and Gave additional this morning To try to help wean off pressor. Discussed with nephrology as well, planning to take a break today with dialysis, focus on getting blood pressure better. Continue to wean off pressors as tolerating. Noted down to 4 mcg/min. Continue treatment of suspected underlying infection, septic shock. Source not clear. Reported to have positive blood culture, reviewed, none reported just yet. Follow-up. Reviewed peritoneal fluid studies, nothing on Gram stain or culture so far. Reviewed pericardial fluid studies, no growth so far. Still in shock despite relief of pericardial effusion, per discussion likely other cause, possibly septic shock. Discussed with nephrology regarding hypotension. She is receiving peritoneal dialysis. Given albumin as per discussion with nephrology and cardiology. Shock, possible septic shock, continue empiric antibiotic coverage. Peritoneal studies have been requested but not collected, sent out after peritoneal dialysis today. Follow-up. Some reports of possible recent pneumonia, chest x-ray not grossly suggestive of pneumonia, but some haziness in right middle lobe. Additionally recently redness around peritoneal dialysis catheter, was treated with a course of antibiotic, redness did resolve. Family deny any cloudy dialysate. Blood culture and peritoneal dialysate culture are requested. Continue n.p.o. for now given risk of aspiration, supine positioning due to persistent shock. Pending MBS. UA is ordered, follow-up urine studies. Ultrasound of wound under left breast. No noted abscess. Possible calciphylaxis?. Qualifiers: Hypotension type: unspecified hypotension type Qualified Code(s): I95.9 - Hypotension, unspecified (2) Pericardial effusion: Reviewed cardiology note.Drain has been removed. Large pericardial effusion with tamponade features identified on echocardiogram, underwent pericardiocentesis. Reviewed vitals, CBC, CMP. 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 Elevated BUN, ineffectual peritoneal dialysis due to machine malfunction at home. This is being addressed to arrange for service/replacement. Good response to pericardiocentesis on review of repeat echocardiogram. However, she is still hypotensive, per discussion likely other cause, possibly septic shock or other cause. (3) CRF (chronic renal failure): Peritoneal dialysis. With uremia, uremic pericarditis. Discussed with nephrology, concern for failure of peritoneal dialysis given she has been on PD for years. Additionally low urine output. Possible progression of renal failure/loss of residual renal function. Complications with uremia, uremic pericarditis. Consideration of need for hemodialysis. Current renal failure, with noted anion gap acidosis, noted worsened creatinine both in and currently, as well as elevated BUN, potassium looks okay. It appears PT may not be effective, when discussed with family, they state that machine has not been working properly over the last week or so. Previously lab work was better. She only gets PD for 11 hours a day through [employer]. Nephrology consultation is requested. (4) Peritoneal dialysis status: Obtain dialysis dialysate cultures. Recent infection around PD insertion site. (5) Sepsis: As above (6) Syncope and collapse: Likely secondary to hypotension, sepsis, additional cardiac evaluation as below. (7) Troponin level elevated: Status post pericardiocentesis, heparin drip was held. Hypotensive on presentation. Possibly demand ischemia secondary to sepsis, septic shock. However, cardiac function is unknown. Obtain TTE. Complete troponin EKG series. She is free of chest pain. With possible demand ischemia will further benefit from additional cardiac risk stratification. With possible NSTEMI, continue aspirin, not a candidate for beta-veronica at this time. (8) Dysphagia: Reviewed speech therapy note. Discussed with her and family, she wants to eat. Blood pressure slightly better. She is able to sit upright. Dysphagia diet started. Family report dysphagia over the last at least several days, she has had previously some small strokes. They were wondering if she may have had some additional small strokes. On pharyngeal exam I do not see any tonsillomegaly, no posterior pharyngeal erythema. She is having some secretions, some difficulty coughing up secretions, has been having some dysphagia with food and drink. Will keep n.p.o. for now with sepsis, septic shock, concern for aspiration risk. Once ready will need speech therapy evaluation, once able to tolerate MBS. Obtained CT head. Continue aspirin. (9) Pressure ulcer: No abscess on ultrasound. Pressure injury? She seems to favor laying on the left side as per patient ever Since her past strokes. Possible calciphylaxis. Considerations are being made for more effective dialysis.Concern for failure of PD. Underneath left breast. Wound care requested. (10) Cardiomegaly: Pericardial effusion as above. Plan Goals of care discussion: She would want attempted resuscitation in case of cardiopulmonary arrest. Family are in the process of finalizing DPOA paperwork. Recent cellulitis around PD catheter. Resolved after completion of antibiotic course. History of DVT, status post IVC filter HLD: Unclear benefit of statin in patients with ESRD on dialysis. Hold statin for now. HTN: Currently hypotensive, hold antihypertensives. DM2: Noted acidosis, anion gap elevated, however, ABG reviewed, pH 7.49. Serum ketones obtained, negative. Urine studies pending. Not likely DKA. Continue sliding scale insulin. Extracts. N.p.o. for now due to dysphagia. Resume consist carbohydrate diet once able to resume oral intake. Other medical problems Attestations Medical Necessity Statement*: Continue admission for assessment of management of shock, suspected septic shock, pericardial effusion status post pericardiocentesis, uremic pericarditis, other medical problems. Coding Level of Care Code Critical Care >/= 30 minutes Critical care time (in minutes): 35 The high probability of a clinically significant, sudden or life threatening deterioration, as referenced in this documentation, required my full and direct attention, intervention and personal management. The critical care time shown is in addition to time spent performing any reported separately billable procedures and includes the following: [x] Data and vital sign review and interpretation [x] Patient assessment, examination and intervention [x] Medication orders and management [x] Patient/Family updates as able [x] Care Coordination and Documentation. Diagnoses Hypotension I95.9 Hypotension type: unspecified hypotension type Pericardial effusion I31.39 CRF (chronic renal failure) N18.9 Peritoneal dialysis status Z99.2 Sepsis A41.9 Syncope and collapse R55 Troponin level elevated R79.89 Dysphagia R13.10 Pressure ulcer L89.90 Cardiomegaly I51.7
[2023-09-09 21:20] LABS: Glucose Point of Care 227 mg/dL (70-110)
[2023-09-10] VITALS (75 sets, daily range): BP systolic 83–130; BP diastolic 51–88; PULSE 85–115; RESP 12–30; TEMP 36.6–37; O2SAT 91–100; BMI 36.6
[2023-09-10] MEDS: insulin lispro 100 unit/1 mL SUBCUT ×4 (00:10→22:30)
[2023-09-10] MEDS: albumin 25 G/100 ML BAG 60 G IV ×3 (01:29→17:12)
[2023-09-10] MEDS: piperacillin-tazobactam 3.375 GM in sodium chloride 0.9% (plus) 50 ML IV ×2 (01:37→15:13)
--- NOTE | 2023-09-10 01:57 | PC.NURSE ---
Nurse stopped levofed drip at 0157 evidenced by blood presures staying witiin normal limits and MAPS in the 70s.
[2023-09-10 04:23] LABS: Basophils % 0.2 %; Eosinophils # 0.1 10^3/uL (0.0-0.8); Eosinophils % 0.9 %; Hematocrit 22.1 % (36-47); Lymphocytes # 1.2 10^3/uL (0.8-4.8); Lymphocytes % 12.9 %; Mean Corpuscular Hemoglobin 35.6 pg (27-33); Mean Corpuscular Volume 107.8 fl (85-98); Mean Platelet Volume 10.4 fL (7.4-10.4); Monocytes # 0.3 10^3/uL (0.2-0.9); Monocytes % 3.7 %; Neutrophils # 7.28 10^3/uL (1.8-7.7); Neutrophils % 80.7 %; Nucleated Red Blood Cells % 0 %; Platelet Count 119 10^3/cmm (157-399); Red Blood Count 2.05 10^6/uL (3.85-5.65); White Blood Count 9.01 10^3/uL (3.29-11.43)
[2023-09-10 04:42] LABS: Vancomycin Random 23.6 ug/mL (20.0-40.0)
[2023-09-10 04:50] LABS: Alanine Aminotransferase 17 U/L (0-33); Albumin Level 3.4 g/dL (3.5-5.2); Alkaline Phosphatase 48 U/L (35-105); Anion Gap 22.3 (5-19); Aspartate Amino Transferase 16 U/L (0-32); Blood Urea Nitrogen 78 mg/dL (8-23); Calcium 7.9 mg/dL (8.5-10.5); Carbon Dioxide 18 mmol/L (22-29); Chloride 97 mmol/L (98-107); Globulin 1.4 g/dL (1.3-4.6); Glomerular Filtration Rate 3.1 mL/min (90-130); Glucose 102 mg/dL (65-115); Osmolality Calculated 300 mOsm/kg (285-295); Potassium 4.3 mmol/L (3.5-5.1); Sodium 133 mmol/L (136-145); Total Bilirubin 0.5 mg/dL (0.15-1.2); Total Protein 4.8 g/dL (6.6-8.7)
[2023-09-10 05:03] LABS: Glucose Point of Care 123 mg/dL (70-110)
[2023-09-10] MEDS: sodium chloride 0.9% 1,000 ML 100 ML IV (06:06)
[2023-09-10 08:00] LABS: Glucose Point of Care 140 mg/dL (70-110)
[2023-09-10] MEDS: nystatin 100,000 unit/mL UDC 5 mL 400000 UNIT PO ×4 (08:04→20:57)
[2023-09-10] MEDS: aspirin 81 mg EC Tablet PO (08:05)
[2023-09-10] MEDS: calcium carbonate 500 mg Chew Tablet PO (08:05)
[2023-09-10] MEDS: sevelamer 800 mg Tablet 2400 MG PO ×2 (08:05→17:12)
--- NOTE | 2023-09-10 10:21 | P.PN_ITS ---
Subjective 2 Subjective: Patient doing well. Off pressors. Alert now. Vitals/I&O/Wt Last Vital Signs Temp 98.6 F 09/10/23 08:15 Pulse 107 H 09/10/23 08:15 Resp 23 H 09/10/23 08:15 BP 97/67 09/10/23 08:15 Pulse Ox 99 09/10/23 08:15 O2 Del Method Room Air 09/10/23 08:15 O2 Flow Rate 3 09/07/23 22:15 09/09/23 09/10/23 09/10/23 22:59 06:59 14:59 Intake Total 1817.125 / 2210.125 1095.605 / 3305.730 250 / 250 Balance 1817.125 / 2210.125 1095.605 / 3305.730 250 / 250 Weight last 48 hrs Weight 194 lb Weight 194 lb Physical Exam 2 Narrative: GENERAL: Patient is Drowsy NECK: No jugular vein distension. [] HEENT: No cyanosis. No icterus. No pallor. [] HEART: Regular S1 and S2. No murmur, rub or gallop. [] LUNGS: Clear to auscultate bilaterally. [] CENTRAL NERVOUS SYSTEM: Grossly nonfocal. [] EXTREMITIES: Lower extremities with 1+ edema bilaterally Data 09/11/23 03:40 09/11/23 03:40 Micro: Microbiology 09/07/23 20:42 Anaerobic Culture - Preliminary Pericardial Fluid 09/07/23 20:42 Gram Stain - Final Pericardial Fluid Body Fluid Culture - Preliminary 09/09/23 03:14 Gram Stain - Final Peritoneal Fluid 09/07/23 11:40 Blood Culture - Preliminary Blood A&P Assessment and plan (1) Pericardial effusion: (2) Cardiomegaly: (3) Hypotension: Qualifiers: Hypotension type: unspecified hypotension type Qualified Code(s): I95.9 - Hypotension, unspecified (4) Essential hypertension: (5) Hyperlipidemia, mixed: (6) Troponin level elevated: (7) Diabetes mellitus with hyperglycemia, with long-term current use of insulin: Plan Patient is stable. Off pressors now. Nephrology on board. Possibly will need hemodialysis. Thank you for involving us with care of this patient. We will continue to follow. Please call with questions. Attestations 2 Medical Necessity Statement*: Care expected to cross 2 midnights. Coding Level of Care Code Acute Code for Chg Fwd Diagnoses Pericardial effusion I31.39 Cardiomegaly I51.7 Hypotension I95.9 Hypotension type: unspecified hypotension type Essential hypertension I10 Hyperlipidemia, mixed E78.2 Troponin level elevated R79.89 Diabetes mellitus with hyperglycemia, with long-term current use of insulin E11.65; Z79.4
[2023-09-10] MEDS: Dianeal low Ca w/1.5% dex 2,000 mL Bag 2000 ML INTRAPERIT (11:05)
[2023-09-10 11:50] LABS: Glucose Point of Care 167 mg/dL (70-110)
[2023-09-10 13:04] LABS: Quantiferon Mitogen 0.42 IU/mL; Quantiferon Nil 0.02 IU/mL; Quantiferon TB Gold INDETERMINATE (NEGATIVE)
--- NOTE | 2023-09-10 14:19 | P.PN_ITS ---
Subjective 2 Subjective: off pressors Medications: Reviewed: Yes Vitals/I&O/Wt Last Vital Signs Temp 98.6 F 09/10/23 08:15 Pulse 102 H 09/10/23 11:30 Resp 25 H 09/10/23 11:30 BP 101/58 09/10/23 11:30 Pulse Ox 98 09/10/23 11:30 O2 Del Method Room Air 09/10/23 11:30 O2 Flow Rate 3 09/07/23 22:15 09/09/23 09/10/23 09/10/23 22:59 06:59 14:59 Intake Total 1817.125 / 2210.125 1095.605 / 3305.730 350 / 350 Balance 1817.125 / 2210.125 1095.605 / 3305.730 350 / 350 Weight last 48 hrs Weight 87.997 kg Weight 87.997 kg Physical Exam 2 Narrative: Patient is awake, alert, not in distress Data 09/11/23 03:40 09/11/23 03:40 Micro: Microbiology 09/07/23 20:42 Gram Stain - Final Pericardial Fluid Body Fluid Culture - Preliminary 09/09/23 03:14 Gram Stain - Final Peritoneal Fluid Body Fluid Culture - Preliminary 09/09/23 03:14 Body Fluid Culture - Preliminary Peritoneal Fluid 09/07/23 20:42 Anaerobic Culture - Preliminary Pericardial Fluid 09/07/23 11:40 Blood Culture - Preliminary Blood A&P Assessment and plan (1) Peritoneal dialysis status: Plan 1. End-stage renal disease: On peritoneal dialysis . Patient is hypotensive and was found to have large pericardial effusion with tamponade and plan for urgent pericardiocentesis -Patient off pressors and , will do 1 PD exchange today with 1.5% solution Discussed with her PD nurse and also her career development facilitator-likely has PD membrane failure. Given that patient is admitted now with uremic pericarditis with t amponade, will benefit from switching to hemodialysis. -Discussed with patient and she is agreeable, recommend tunneled catheter placement and plan for HD in AM. -Continue to monitor labs and volume status 2. Pericardial effusion with tamponade, status post pericardiocentesis ,cardiology following 3. Hyponatremia: Mild, monitor 4. Anemia : Hemoglobin of 7.9 , will order ANNA 5. Shock, improved, off pressors Patient evaluated using audiovisual cart. Time spent 20 minutes. Attestations 2 Medical Necessity Statement*: per mediicne team Coding Level of Care Code Acute Code for Chg Fwd Diagnoses Peritoneal dialysis status Z99.2
[2023-09-10] MEDS: pantoprazole 40 mg SDV IVP (17:12)
[2023-09-10 17:40] LABS: Glucose Point of Care 222 mg/dL (70-110)
--- NOTE | 2023-09-10 17:45 | PC.NURSE ---
Patient received one instillation of peritoneal dialysis, tolerated well. Family at bedside educated multiple times throughout shift on patient status as well as diet modifications, in particular moderately thickened liquids, patient and family verbalizes understanding of teachings, however reinforcement is encouraged. Patient up to chair for a majority of shift, two person assist with pivot transfer, gait belt use and verbal instructions as well as demonstration for transfer. Patient off of levophed since 0200, see documented vitals for stable vitals during shift. Patient remains on room air. Patient is AOX4. Patient reports no pain when prompted, refuses turns multiple times, but verbalized understanding of possibility of pressure injuries, reinforcement of teachings recommended. Patient to be transferred to [facility] room 106. Report called at approximately 1745.
--- NOTE | 2023-09-10 18:10 | PC.NURSE ---
Patient transferred to [facility] room 106 on room air, AOX4, with family and INDIVIDUAL SMALL GROUP INSTRUCTOR at bedside. Patient in recliner at bedside preparing for evening meal. Cardiac monitoring applied, as well as O2 and BP monitoring. Albumen infusing through central line at 60mls/hr. Room prepared with suctioning equipment by CSU staff. Patient oriented to room and call light.
[2023-09-10 21:04] LABS: Glucose Point of Care 187 mg/dL (70-110)
[2023-09-10 23:12] LABS: Glucose Point of Care 181 mg/dL (70-110)
--- NOTE | 2023-09-10 23:20 | P.PN_ITS ---
Subjective 2 Subjective: Reports she is doing okay. Feels tired. Denies additional new symptoms. No abdominal pain. Vitals/I&O/Wt Last Vital Signs Temp 97.8 F 09/10/23 12:15 Pulse 108 H 09/10/23 22:00 Resp 17 09/10/23 22:00 BP 121/72 09/10/23 22:00 Pulse Ox 91 09/10/23 22:00 O2 Del Method Room Air 09/10/23 22:00 O2 Flow Rate 3 09/07/23 22:15 09/10/23 09/10/23 09/11/23 14:59 22:59 06:59 Intake Total 572 / 572 1150 / 1722 Balance 572 / 572 1150 / 1722 Weight last 48 hrs Weight 87.997 kg Weight 87.997 kg Physical Exam 2 Narrative: Sitting up in the chair. Const: COMMON NORMALS: patient oriented x3 and alert GENERAL APPEARANCE: c ooperative ORIENTATION/CONSCIOUSNESS: Yes awake HENMT: COMMON NORMALS: oropharynx normal Neck/C-Spine: COMMON NORMALS: no JVD Resp: COMMON NORMALS: normal respiratory effort and clear to auscultation bilaterally AUSCULTATION: clear to auscultation bilaterally Cardio: COMMON NORMALS: no JVD, regular rhythm, S1 normal heart sound present, S2 normal heart sound present and No murmurs present (Cardio) RHYTHM: regular rhythm HEART SOUNDS: S1 normal heart sound present and S2 normal heart sound present GI: COMMON NORMALS: Normal to inspection, nondistended, normoactive bowel sounds present, Soft to palpation and non-tender PALPATION: Yes Soft to palpation : OTHER: No erythema around PD catheter. Extremity: COMMON NORMALS: no joint enlargement and no pedal edema Neuro: COMMON NORMALS: patient oriented x3 and moves all extremities S ENSORIUM/ORIENTATION: Yes alert Skin: NARRATIVE SKIN EXAM: Overall, 3 cm at least stage II pressure ulceration with necrotic border under medial left breast. No tunneling, no drainage. OTHER: Ichthyosis bilateral lower extremities. Data 09/10/23 03:49 09/10/23 03:49 Micro: Microbiology 09/07/23 20:42 Anaerobic Culture - Preliminary Pericardial Fluid 09/07/23 20:42 Gram Stain - Final Pericardial Fluid Body Fluid Culture - Preliminary 09/09/23 03:14 Gram Stain - Final Peritoneal Fluid Body Fluid Culture - Preliminary 09/09/23 03:14 Body Fluid Culture - Preliminary Peritoneal Fluid A&P Assessment and plan (1) Sepsis: Verbally reported bacteremia from blood culture, however, I do not see the result. Negative blood culture reported on 09/07 1 set. The other 1 is pending. Follow-up results. Continue empiric antibiotic coverage for possible bacteremia. (2) Hypotension: Improved. Weaned off pressors. Reviewed vitals, CBC, CMP. Continues on amlodipine infusions. This morning also completed short course of normal saline. Sure. Denies dialysis only 6 hours. Reviewed nephrology note. Discussed with wire winding machine tender. Transfer out of ICU, continue care on medical surgical floor. Continue albumin infusions for now. Reassess blood pressure. Continue treatment of suspected underlying infection, Resolved septic shock. Source not clear. Reported to have positive blood culture, reviewed, none reported just yet. Follow-up. Reviewed peritoneal fluid studies, nothing on Gram stain or culture so far. Reviewed pericardial fluid studies, no growth so far. Still in shock despite relief of pericardial effusion, per discussion likely other cause, possibly septic shock. Discussed with nephrology regarding hypotension. She is receiving peritoneal dialysis. Given albumin as per discussion with nephrology and cardiology. Shock, possible septic shock, continue empiric antibiotic coverage. Peritoneal studies have been requested but not collected, sent out after peritoneal dialysis today. Follow-up. Some reports of possible recent pneumonia, chest x-ray not grossly suggestive of pneumonia, but some haziness in right middle lobe. Additionally recently redness around peritoneal dialysis catheter, was treated with a course of antibiotic, redness did resolve. Family deny any cloudy dialysate. Blood culture and peritoneal dialysate culture are requested. Continue n.p.o. for now given risk of aspiration, supine positioning due to persistent shock. Pending MBS. UA is ordered, follow-up urine studies. Ultrasound of wound under left breast. No noted abscess. Possible calciphylaxis?. Qualifiers: Hypotension type: unspecified hypotension type Qualified Code(s): I95.9 - Hypotension, unspecified (3) Pericardial effusion: Reviewed pericardial fluid culture, negative. Large pericardial effusion with tamponade features identified on echocardiogram, underwent pericardiocentesis. Reviewed vitals, CBC, CMP. 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 Elevated BUN, ineffectual peritoneal dialysis due to machine malfunction at home. This is being addressed to arrange for service/replacement. Good response to pericardiocentesis on review of repeat echocardiogram. However, she is still hypotensive, per discussion likely other cause, possibly septic shock or other cause. (4) CRF (chronic renal failure): Peritoneal dialysis. With uremia, uremic pericarditis. Discussed with nephrology, concern for failure of peritoneal dialysis given she has been on PD for years. Additionally low urine output. Possible progression of renal failure/loss of residual renal function. Complications with uremia, uremic pericarditis. Consideration of need for hemodialysis. Current renal failure, with noted anion gap acidosis, noted worsened creatinine both in and currently, as well as elevated BUN, potassium looks okay. It appears PT may not be effective, when discussed with family, they state that machine has not been working properly over the last week or so. Previously lab work was better. She only gets PD for 11 hours a day through [employer]. Nephrology consultation is requested. (5) Peritoneal dialysis status: Reviewed peritoneal fluid culture. Recent infection around PD insertion site. (6) Syncope and collapse: Likely secondary to hypotension, sepsis, additional cardiac evaluation as below. (7) Troponin level elevated: Status post pericardiocentesis, heparin drip was held. Hypotensive on presentation. Possibly demand ischemia secondary to sepsis, septic shock. However, cardiac function is unknown. Obtain TTE. Complete troponin EKG series. She is free of chest pain. With possible demand ischemia will further benefit from additional cardiac risk stratification. With possible NSTEMI, continue aspirin, not a candidate for beta-veronica at this time. (8) Dysphagia: Reviewed speech therapy note. Discussed with her and family, she wants to eat. Blood pressure slightly better. She is able to sit upright. Dysphagia diet started. Family report dysphagia over the last at least several days, she has had previously some small strokes. They were wondering if she may have had some additional small strokes. On pharyngeal exam I do not see any tonsillomegaly, no posterior pharyngeal erythema. She is having some secretions, some difficulty coughing up secretions, has been having some dysphagia with food and drink. Will keep n.p.o. for now with sepsis, septic shock, concern for aspiration risk. Once ready will need speech therapy evaluation, once able to tolerate MBS. Obtained CT head. Continue aspirin. (9) Pressure ulcer: No abscess on ultrasound. Pressure injury? She seems to favor laying on the left side as per patient ever Since her past strokes. Possible calciphylaxis. Considerations are being made for more effective dialysis.Concern for failure of PD. Underneath left breast. Wound care requested. (10) Cardiomegaly: Pericardial effusion as above. Plan Goals of care discussion: She would want attempted resuscitation in case of cardiopulmonary arrest. Family are in the process of finalizing DPOA paperwork. Recent cellulitis around PD catheter. Resolved after completion of antibiotic course. History of DVT, status post IVC filter HLD: Unclear benefit of statin in patients with ESRD on dialysis. Hold statin for now. HTN: Currently hypotensive, hold antihypertensives. DM2: Noted acidosis, anion gap elevated, however, ABG reviewed, pH 7.49. Serum ketones obtained, negative. Urine studies pending. Not likely DKA. Continue sliding scale insulin. Extracts. N.p.o. for now due to dysphagia. Resume consist carbohydrate diet once able to resume oral intake. Other medical problems Attestations 2 Medical Necessity Statement*: Continue admission for assessment of management of Possible bacteremia, resolved shock, suspected septic shock, pericardial effusion status post pericardiocentesis, Uremia, Failure of peritoneal dialysis, uremic pericarditis, other medical problems. Diagnoses Sepsis A41.9 Hypotension I95.9 Hypotension type: unspecified hypotension type Pericardial effusion I31.39 CRF (chronic renal failure) N18.9 Peritoneal dialysis status Z99.2 Syncope and collapse R55 Troponin level elevated R79.89 Dysphagia R13.10 Pressure ulcer L89.90 Cardiomegaly I51.7
[2023-09-11] VITALS (65 sets, daily range): BP systolic 99–135; BP diastolic 48–83; PULSE 94–113; RESP 13–34; TEMP 36.4–36.9; O2SAT 80–100
[2023-09-11] MEDS: piperacillin-tazobactam 3.375 GM in sodium chloride 0.9% (plus) 50 ML IV ×2 (01:15→13:27)
[2023-09-11] MEDS: albumin 25 G/100 ML BAG 60 G IV ×3 (01:16→18:13)
[2023-09-11 03:52] LABS: Platelet Count 95 10^3/cmm (157-399)
[2023-09-11 04:10] LABS: Vancomycin Random 20.7 ug/mL (20.0-40.0)
[2023-09-11 05:26] LABS: Glucose Point of Care 109 mg/dL (70-110)
[2023-09-11 07:00] LABS: Anion Gap 23.3 (5-19); Blood Urea Nitrogen 73 mg/dL (8-23); Calcium 8.2 mg/dL (8.5-10.5); Carbon Dioxide 15 mmol/L (22-29); Chloride 97 mmol/L (98-107); Glomerular Filtration Rate 3.1 mL/min (90-130); Glucose 98 mg/dL (65-115); Osmolality Calculated 294 mOsm/kg (285-295); Potassium 4.3 mmol/L (3.5-5.1); Sodium 131 mmol/L (136-145)
[2023-09-11] MEDS: sevelamer 800 mg Tablet 2400 MG PO ×2 (08:40→18:12)
[2023-09-11] MEDS: calcium carbonate 500 mg Chew Tablet PO (08:40)
[2023-09-11] MEDS: aspirin 81 mg EC Tablet PO (08:41)
[2023-09-11] MEDS: nystatin 100,000 unit/mL UDC 5 mL 400000 UNIT PO ×4 (08:41→20:58)
--- NOTE | 2023-09-11 08:54 | P.PN_ITS ---
Subjective 2 Subjective: Patient is doing well. no chest pain. Vitals/I&O/Wt Last Vital Signs Temp 97.8 F 09/11/23 07:28 Pulse 105 H 09/11/23 07:28 Resp 26 H 09/11/23 07:28 BP 99/51 09/11/23 07:28 Pulse Ox 98 09/11/23 07:28 O2 Del Method Room Air 09/11/23 07:28 O2 Flow Rate 3 09/07/23 22:15 09/10/23 09/11/23 09/11/23 22:59 06:59 14:59 Intake Total 1150 / 1722 150 / 1872 Output Total 0 / 0 Balance 1150 / 1722 150 / 1872 Weight last 48 hrs Weight 216 lb 4.8 oz Weight 194 lb Physical Exam 2 Narrative: GENERAL: Patient is Drowsy NECK: No jugular vein distension. [] HEENT: No cyanosis. No icterus. No pallor. [] HEART: Regular S1 and S2. No murmur, rub or gallop. [] LUNGS: Clear to auscultate bilaterally. [] CENTRAL NERVOUS SYSTEM: Grossly nonfocal. [] EXTREMITIES: Lower extremities with 1+ edema bilaterally Data 09/12/23 09:30 09/12/23 03:32 Micro: Microbiology 09/07/23 20:42 Anaerobic Culture - Preliminary Pericardial Fluid 09/07/23 20:42 Gram Stain - Final Pericardial Fluid Body Fluid Culture - Preliminary 09/09/23 03:14 Gram Stain - Final Peritoneal Fluid Body Fluid Culture - Preliminary 09/09/23 03:14 Body Fluid Culture - Preliminary Peritoneal Fluid A&P Assessment and plan (1) Pericardial effusion: (2) Cardiomegaly: (3) Hypotension: Qualifiers: Hypotension type: unspecified hypotension type Qualified Code(s): I95.9 - Hypotension, unspecified (4) Essential hypertension: (5) Hyperlipidemia, mixed: (6) Troponin level elevated: (7) Diabetes mellitus with hyperglycemia, with long-term current use of insulin: Plan Doing well. Off pressors. Plan for possible hemodialysis initiation. Nephrology on board. Thank you for involving us with care of this patient. Please call with questions. Attestations 2 Medical Necessity Statement*: Care expected to cross 2 midnights. Coding Level of Care Code Acute Code for [facility] Fwd Diagnoses Pericardial effusion I31.39 Cardiomegaly I51.7 Hypotension I95.9 Hypotension type: unspecified hypotension type Essential hypertension I10 Hyperlipidemia, mixed E78.2 Troponin level elevated R79.89 Diabetes mellitus with hyperglycemia, with long-term current use of insulin E11.65; Z79.4
[2023-09-11 11:29] LABS: Glucose Point of Care 194 mg/dL (70-110)
[2023-09-11] MEDS: Dianeal low Ca w/1.5% dex 2,000 mL Bag 2000 ML INTRAPERIT (13:28)
[2023-09-11] MEDS: insulin lispro 100 unit/1 mL SUBCUT ×2 (13:28→18:24)
[2023-09-11] MEDS: citric acid-sodium citrate 30 mL UDC PO (13:44)
--- NOTE | 2023-09-11 14:44 | P.PN_ITS ---
Subjective 2 Subjective: She feels she is doing slightly better. She is looking forward to working some with physical therapy. Vitals/I&O/Wt Last Vital Signs Temp 98.5 F 09/11/23 11:15 Pulse 106 H 09/11/23 11:15 Resp 21 H 09/11/23 11:15 BP 106/50 09/11/23 11:15 Pulse Ox 97 09/11/23 11:15 O2 Del Method Room Air 09/11/23 11:15 O2 Flow Rate 3 09/07/23 22:15 09/10/23 09/11/23 09/11/23 22:59 06:59 14:59 Intake Total 1150 / 1722 150 / 1872 2100 / 2100 Output Total 0 / 0 Balance 1150 / 1722 150 / 1872 2100 / 2100 Weight last 48 hrs Weight 98.112 kg Weight 87.997 kg Physical Exam 2 Narrative: Sitting up in the chair. Const: COMMON NORMALS: patient oriented x3 and alert GENERAL APPEARANCE: c ooperative ORIENTATION/CONSCIOUSNESS: Yes awake HENMT: COMMON NORMALS: oropharynx normal Neck/C-Spine: COMMON NORMALS: no JVD Resp: COMMON NORMALS: normal respiratory effort and clear to auscultation bilaterally AUSCULTATION: clear to auscultation bilaterally Cardio: COMMON NORMALS: no JVD, regular rhythm, S1 normal heart sound present, S2 normal heart sound present and No murmurs present (Cardio) RHYTHM: regular rhythm HEART SOUNDS: S1 normal heart sound present and S2 normal heart sound present GI: COMMON NORMALS: Normal to inspection, nondistended, normoactive bowel sounds present, Soft to palpation and non-tender PALPATION: Yes Soft to palpation : OTHER: No erythema around PD catheter. Extremity: COMMON NORMALS: no joint enlargement and no pedal edema Neuro: COMMON NORMALS: patient oriented x3 and moves all extremities S ENSORIUM/ORIENTATION: Yes alert Skin: NARRATIVE SKIN EXAM: Overall, 3 cm at least stage II pressure ulceration with necrotic border under medial left breast. No tunneling, no drainage. OTHER: Ichthyosis bilateral lower extremities. Data 09/11/23 03:40 09/11/23 03:40 Micro: Microbiology 09/09/23 03:14 Gram Stain - Final Peritoneal Fluid Body Fluid Culture - Preliminary 09/09/23 03:14 Body Fluid Culture - Preliminary Peritoneal Fluid 09/07/23 20:42 Gram Stain - Final Pericardial Fluid Body Fluid Culture - Final 09/07/23 20:42 Anaerobic Culture - Preliminary Pericardial Fluid A&P Assessment and plan (1) Sepsis: I still do not see any reports of bacteremia under microbiology, reviewed blood cultures. 1 report is preliminary without growth. Another one cyst received and pending but I cannot open this. Discussed with our micro tech, he cannot see a positive culture either. This was reported verbally on 09/09. Perhaps there was a phone call. Cannot be confirmed with [facility] today, need to wait until Tuesday. Discussed with nephrology, for now HD catheter postponed. Please reconsult surgery once status of bacteremia confirmed, per discussion with nephrology possibly aiming for Tuesday. Continue empiric antibiotic coverage for possible bacteremia. Resolving sepsis, leukocytosis noted resolved on review of CBC. Still sinus tachycardia 104. (2) CRF (chronic renal failure): Chronic renal failure, failure of peritoneal dialysis. Discussed with nephrology today. Requesting for tunneled dialysis catheter, however, discussed again due to still unclear status of previously reported positive blood culture. Wound cultures from 09/07 is reporting no growth, and otherwise reported received and pending, but I am unable to click on it and our micro lab cannot see the results. Discussed with the surgeon, we will hold off on consult for now, please call for consult once blood culture status is confirmed. Peritoneal dialysis. With uremia, uremic pericarditis. Discussed with nephrology, concern for failure of peritoneal dialysis given she has been on PD for years. Additionally low urine output. Possible progression of renal failure/loss of residual renal function. Complications with uremia, uremic pericarditis. Consideration of need for hemodialysis. Current renal failure, with noted anion gap acidosis, noted worsened creatinine both in and currently, as well as elevated BUN, potassium looks okay. It appears PT may not be effective, when discussed with family, they state that machine has not been working properly over the last week or so. Previously lab work was better. She only gets PD for 11 hours a day through [employer]. Nephrology consultation is requested. (3) Hypotension: Improved. Weaned off pressors. Reviewed vitals, CBC, CMP. Continues on albmin infusions. Transfer out of ICU, continue care on medical surgical floor. Continue albumin infusions for now. Reassess blood pressure. Continue treatment of suspected underlying infection, Resolved septic shock. Source not clear. Reported to have positive blood culture, reviewed, none reported just yet. Follow-up. Reviewed peritoneal fluid studies, nothing on Gram stain or culture so far. Reviewed pericardial fluid studies, no growth so far. Still in shock despite relief of pericardial effusion, per discussion likely other cause, possibly septic shock. Discussed with nephrology regarding hypotension. She is receiving peritoneal dialysis. Given albumin as per discussion with nephrology and cardiology. Shock, possible septic shock, continue empiric antibiotic coverage. Peritoneal studies have been requested but not collected, sent out after peritoneal dialysis today. Follow-up. Some reports of possible recent pneumonia, chest x-ray not grossly suggestive of pneumonia, but some haziness in right middle lobe. Additionally recently redness around peritoneal dialysis catheter, was treated with a course of antibiotic, redness did resolve. Family deny any cloudy dialysate. Blood culture and peritoneal dialysate culture are requested. Continue n.p.o. for now given risk of aspiration, supine positioning due to persistent shock. Pending MBS. UA is ordered, follow-up urine studies. Ultrasound of wound under left breast. No noted abscess. Possible calciphylaxis?. Qualifiers: Hypotension type: unspecified hypotension type Qualified Code(s): I95.9 - Hypotension, unspecified (4) Pericardial effusion: Reviewed pericardial fluid culture, remains negative. Reviewed pathology report, numerous histiocytes and reactive mesothelial cells. No marked increase in acute inflammatory cells, dysplasia or malignancy. Large pericardial effusion with tamponade features identified on echocardiogram, underwent pericardiocentesis. Drain removed. Reviewed cardiology note. 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 Elevated BUN, ineffectual peritoneal dialysis due to machine malfunction at home. This is being addressed to arrange for service/replacement. Good response to pericardiocentesis on review of repeat echocardiogram. However, she is still hypotensive, per discussion likely other cause, possibly septic shock or other cause. (5) Peritoneal dialysis status: Reviewed peritoneal fluid culture. Recent infection around PD insertion site. (6) Syncope and collapse: Likely secondary to hypotension, sepsis, additional cardiac evaluation as below. (7) Troponin level elevated: Status post pericardiocentesis, heparin drip was held. Hypotensive on presentation. Possibly demand ischemia secondary to sepsis, septic shock. However, cardiac function is unknown. Obtain TTE. Complete troponin EKG series. She is free of chest pain. With possible demand ischemia will further benefit from additional cardiac risk stratification. With possible NSTEMI, continue aspirin, not a candidate for beta-veronica at this time. (8) Dysphagia: Dysphagia diet. Tolerating so far. Reinforced aspiration precautions with her and visiting family. Family report dysphagia over the last at least several days, she has had previously some small strokes. They were wondering if she may have had some additional small strokes. On pharyngeal exam I do not see any tonsillomegaly, no posterior pharyngeal erythema. She is having some secretions, some difficulty coughing up secretions, has been having some dysphagia with food and drink. Will keep n.p.o. for now with sepsis, septic shock, concern for aspiration risk. Once ready will need speech therapy evaluation, once able to tolerate MBS. Obtained CT head. Continue aspirin. (9) Pressure ulcer: No abscess on ultrasound. Pressure injury? She seems to favor laying on the left side as per patient ever Since her past strokes. Possible calciphylaxis. Considerations are being made for more effective dialysis.Concern for failure of PD. Underneath left breast. Wound care requested. (10) Cardiomegaly: Pericardial effusion as above. Plan Goals of care discussion: She would want attempted resuscitation in case of cardiopulmonary arrest. Family are in the process of finalizing DPOA paperwork. Recent cellulitis around PD catheter. Resolved after completion of antibiotic course. History of DVT, status post IVC filter HLD: Unclear benefit of statin in patients with ESRD on dialysis. Hold statin for now. HTN: hold antihypertensives. DM2: Accu-Cheks. Sliding scale insulin. Other medical problems Attestations 2 Medical Necessity Statement*: Continue admission for assessment of management of possible bacteremia, resolved shock, suspected septic shock, pericardial effusion status post pericardiocentesis, Uremia, Failure of peritoneal dialysis, uremic pericarditis, other medical problems. and High MDM includes amount and/or complexity of data reviewed/ordered [ previous or external records, resulted lab(s)/test(s), ordered lab(s)/test(s) and other healthcare professional discussion] and described risk of complication, morbidity or mortality of management as documented Diagnoses Sepsis A41.9 CRF (chronic renal failure) N18.9 Hypotension I95.9 Hypotension type: unspecified hypotension type Pericardial effusion I31.39 Peritoneal dialysis status Z99.2 Syncope and collapse R55 Troponin level elevated R79.89 Dysphagia R13.10 Pressure ulcer L89.90 Cardiomegaly I51.7
[2023-09-11 16:40] LABS: Glucose Point of Care 230 mg/dL (70-110)
[2023-09-11] MEDS: pantoprazole 40 mg SDV IVP (18:12)
[2023-09-11] MEDS: vancomycin 1,000 MG in sodium chloride 0.9% 250 ML 200 MG IV (18:12)
[2023-09-11 21:16] LABS: Glucose Point of Care 161 mg/dL (70-110)
[2023-09-12] VITALS (59 sets, daily range): BP systolic 94–135; BP diastolic 43–91; PULSE 89–110; RESP 12–29; TEMP 36.3–37; O2SAT 83–100
[2023-09-12] MEDS: albumin 25 G/100 ML BAG 60 G IV ×3 (01:23→17:30)
[2023-09-12] MEDS: piperacillin-tazobactam 3.375 GM in sodium chloride 0.9% (plus) 50 ML IV ×2 (01:24→17:11)
[2023-09-12 03:56] LABS: Basophils % 0.2 %; Eosinophils # 0.1 10^3/uL (0.0-0.8); Eosinophils % 2.1 %; Lymphocytes # 0.9 10^3/uL (0.8-4.8); Mean Corpuscular HGB Conc 32.6 g/dL (30-55); Mean Corpuscular Hemoglobin 34.9 pg (27-33); Mean Corpuscular Volume 107.1 fl (85-98); Mean Platelet Volume 10.6 fL (7.4-10.4); Monocytes # 0.3 10^3/uL (0.2-0.9); Monocytes % 5.5 %; Neutrophils # 4.39 10^3/uL (1.8-7.7); Neutrophils % 75.8 %; Nucleated Red Blood Cells % 0 %; Platelet Count 78 10^3/cmm (157-399); Red Blood Count 1.69 10^6/uL (3.85-5.65); Red Cell Distribution Width 16.6 % (12.1-15.1); White Blood Count 5.79 10^3/uL (3.29-11.43)
[2023-09-12 04:00] LABS: Hematocrit 18.1 % (36-47)
[2023-09-12 04:10] LABS: Anion Gap 21.1 (5-19); Blood Urea Nitrogen 70 mg/dL (8-23); Calcium 8.2 mg/dL (8.5-10.5); Carbon Dioxide 19 mmol/L (22-29); Chloride 96 mmol/L (98-107); Glomerular Filtration Rate 2.9 mL/min (90-130); Glucose 124 mg/dL (65-115); Osmolality Calculated 296 mOsm/kg (285-295); Potassium 4.1 mmol/L (3.5-5.1); Sodium 132 mmol/L (136-145)
[2023-09-12 04:59] LABS: Glucose Point of Care 131 mg/dL (70-110)
--- NOTE | 2023-09-12 09:00 | PC.NURSE ---
Blood infused. See Vital signs recorded in electronic charting of [facility].
[2023-09-12] MEDS: nystatin 100,000 unit/mL UDC 5 mL 400000 UNIT PO ×3 (09:48→21:03)
[2023-09-12] MEDS: sevelamer 800 mg Tablet 2400 MG PO ×2 (09:48→17:09)
[2023-09-12] MEDS: calcium carbonate 500 mg Chew Tablet PO (09:49)
[2023-09-12] MEDS: aspirin 81 mg EC Tablet PO (09:49)
--- NOTE | 2023-09-12 10:01 | P.PN_ITS ---
Subjective 2 Subjective: hb low , s/p transfusion Medications: Reviewed: Yes Vitals/I&O/Wt Last Vital Signs Temp 98.1 F 09/12/23 07:46 Pulse 102 H 09/12/23 07:46 Resp 22 H 09/12/23 07:46 BP 116/66 09/12/23 07:46 Pulse Ox 98 09/12/23 07:46 O2 Del Method Room Air 09/12/23 07:46 O2 Flow Rate 3 09/07/23 22:15 09/11/23 09/12/23 09/12/23 22:59 06:59 14:59 Intake Total 520 / 2620 150 / 2770 220 / 220 Output Total 150 / 150 2300 / 2450 Balance 370 / 2470 -2150 / 320 220 / 220 Weight last 48 hrs Weight 98.43 kg Weight 98.112 kg Physical Exam 2 Narrative: Patient is awake, alert, not in distress Data 09/12/23 09:30 09/12/23 03:32 Micro: Microbiology 09/07/23 20:42 Mycobacterial Smear - Preliminary Body Fluids - Pleura 09/07/23 11:45 Blood Culture - Preliminary Blood 09/11/23 15:51 Blood Culture - Preliminary Blood SPECIMEN COLLECTED 09/11/23 15:56 Blood Culture - Preliminary Blood SPECIMEN COLLECTED 09/07/23 20:42 Anaerobic Culture - Preliminary Pericardial Fluid 09/09/23 03:14 Gram Stain - Final Peritoneal Fluid Body Fluid Culture - Preliminary 09/09/23 03:14 Body Fluid Culture - Preliminary Peritoneal Fluid 09/07/23 20:42 Gram Stain - Final Pericardial Fluid Body Fluid Culture - Final A&P Assessment and plan (1) Peritoneal dialysis status: Plan 1. End-stage renal disease: On peritoneal dialysis . Patient is hypotensive and was found to have large pericardial effusion with tamponade and plan for urgent pericardiocentesis -Patient off pressors and , will do 2 PD exchanges today with 1.5% solution Discussed with her PD nurse and also her broach operator-likely has PD membrane failure. Given that Patient is admitted now with uremic pericarditis with t amponade, will benefit from switching to hemodialysis. -Discussed with patient and she is agreeable, recommend tunneled catheter placement and plan for Hd once catheter placed -awaiting clarification on + ve blood cultures prior to catheter placement -Continue to monitor labs and volume status 2. Pericardial effusion with tamponade, status post pericardiocentesis ,cardiology following 3. Hyponatremia: Mild, monitor 4. Anemia :s/p transfusion , will order ANNA 5. Shock, improved, off pressors Patient evaluated using audiovisual cart. Time spent 20 minutes. Attestations 2 Medical Necessity Statement*: per [facility] Coding Level of Care Code Acute Code for Chg Fwd Diagnoses Peritoneal dialysis status Z99.2
[2023-09-12] MEDS: Dianeal low Ca w/1.5% dex 2,000 mL Bag 2000 ML INTRAPERIT ×2 (10:56→18:00)
[2023-09-12] MEDS: epoetin alfa 1000 Unit/0.05 mL (non-esrd) 20000 UNIT SUBCUT (11:11)
[2023-09-12 11:27] LABS: Glucose Point of Care 159 mg/dL (70-110)
[2023-09-12] MEDS: insulin lispro 100 unit/1 mL SUBCUT ×3 (11:30→22:00)
[2023-09-12 12:22] LABS: Thyroid Stimulating Hormone 4.29 uIU/mL (0.27-4.20); Vitamin B12 1017 pg/mL (232-1245)
[2023-09-12 12:25] LABS: Glucose Point of Care 183 mg/dL (70-110)
[2023-09-12 14:14] LABS: THYROID PEROXIDASE ANTIBODIES <1 IU/mL (<9)
--- NOTE | 2023-09-12 14:45 | P.CONIM_ITS ---
Providers/Reason For Consult 2 Consulting Physician/Specialty*: General surgery Reason for Consult*: Need for hemodialysis. Attending Physician: Mahendra Howe MD History of Present Illness History of Present Illness Arianne Archer is a 62 year old female who is currently admitted to hospital with dialysis failure, patient has been receiving peritoneal dialysis for about 20 years, with good results but now she has been noted to have uptrending creatinine and BUN. I have been consulted for tunneled dialysis catheter placement. Patient denies significant symptoms, currently stable Review of Systems 2 General: Reports: 10 or more systems reviewed and unremarkable except in HPI and below Medications/Allergies Home Medications Medication Instructions Recorded Confirmed Last Taken Type vit B,C-folic ac 800 mcg-zinc 12.5 1 tab PO DAILY 08/18/20 09/07/23 09/04/23 History mg-selen-D3 2,000 unit-vit E tablet (RenaPlex-D) flash glucose scanning reader #1 ea 12/03/22 09/07/23 Unknown Rx (FreeStyle Neo 2 Coral) flash glucose sensor (FreeStyle #2 ea 12/03/22 09/07/23 Unknown Rx Neo 2 Sensor kit) blood-glucose sensor (FreeStyle #6 ea 04/12/23 09/07/23 Unknown Rx Neo 3 Sensor device) glipizide 10 mg tablet, extended 10 mg PO DAILY 04/12/23 09/07/23 09/04/23 History release 24 hr amlodipine 5 mg tablet 5 mg PO DAILY 04/25/23 09/07/23 09/04/23 History atorvastatin 40 mg tablet 40 mg PO DAILY #30 tabs 05/04/23 09/07/23 09/05/23 Rx metoprolol succinate 50 mg 50 mg PO BID #60 tabs 05/04/23 09/07/23 09/04/23 Rx tablet,extended release 24 hr insulin detemir U-100 100 unit/mL 40 unit (0.4 mL) SUBCUT DAILY #25 06/10/23 09/07/23 09/04/23 Rx (3 mL) subcutaneous pen (Levemir mL FlexPen) wheelchair #1 ea 07/08/23 09/07/23 Unknown Rx amoxicillin 875 mg-potassium 1 tab PO BID #7 tabs 09/05/23 09/07/23 Unknown Rx clavulanate 125 mg tablet aspirin 81 mg tablet,delayed 81 mg PO DAILY 09/05/23 09/07/23 09/05/23 History release benzonatate 200 mg capsule 100 mg (1/2 x 200 mg) PO TID Cough 09/05/23 09/07/23 Unknown Rx #30 caps calcium carbonate 500 mg calcium 500 mg PO DAILY 09/05/23 09/07/23 09/04/23 History (1,250 mg) tablet cephalexin 500 mg capsule 500 mg PO DAILY 09/05/23 09/07/23 09/05/23 History guaifenesin 1,200 mg tablet, 1,200 mg PO BID #14 tabs 09/05/23 09/07/23 Unknown Rx extended release 12 hr potassium chloride 20 mEq 20 meq PO DAILY 09/05/23 09/07/23 09/04/23 History tablet,extended release(part/cryst) sevelamer carbonate 800 mg tablet 2,400 mg PO BID 09/05/23 09/07/23 09/04/23 History Allergies Allergy/AdvReac Type Severity Reaction Status Date / Time allopurinol Allergy ADR-Faintin Verified 09/05/23 14:24 g Iodinated Contrast Media Allergy Unknown Verified 09/05/23 14:24 loratadine [From Claritin-D] Allergy Heart Verified 09/05/23 14:24 Palpatations pseudoephedrine Allergy Heart Verified 09/05/23 14:24 [From Claritin-D] Palpatations Current Medications Generic Name Dose Route Start Last Admin Trade Name Freq PRN Reason Stop Dose Admin Aspirin 81 mg 09/08/23 09:00 09/12/23 09:49 Aspirin 81 Mg Ec Tablet PO 81 mg DAILY AZIZA Administration Calcium Carbonate 500 mg 09/08/23 09:00 09/12/23 09:49 Calcium Carbonate 500 Mg Chew Tablet PO 500 mg DAILY AZIZA Administration Heparin Sodium (Porcine) 0 unit 09/07/23 11:55 09/07/23 14:01 Heparin 5,000 Unit/Ml Inj 1 Ml IV 4,000 unit PRN PRN Administration Heparin weight-base protocol Protocol Heparin Sodium/Sodium Chloride 25,000 unit in 500 mls @ 0 mls/hr 09/07/23 12:00 09/07/23 19:27 Heparin Drip IV 0 unit/kg/hr .Q0M AZIZA 0 mls/hr Titration Protocol Per Protocol Piperacillin Sod/Tazobactam 50 mls @ 12.5 mls/hr 09/08/23 02:00 09/12/23 05:24 Sod 3.375 gm/ Sodium Chloride IV Infused Q12H AZIZA Infusion Protocol Vancomycin HCl 1,000 mg/ 250 mls @ 250 mls/hr 09/09/23 15:00 09/11/23 19:38 Sodium Chloride IV Infused Q48H AZIZA Infusion Protocol Albumin Human 25 g in 100 mls @ 60 mls/hr 09/09/23 09:30 09/12/23 09:48 Albumin IV 60 mls/hr Q8H AZIZA Administration Insulin Human Lispro 0 unit 09/07/23 17:00 09/12/23 11:30 Insulin Lispro 100 Unit/1 Ml SUBCUT 2 unit Q6H AZIZA Administration Protocol Nystatin 400,000 unit 09/08/23 13:00 09/12/23 09:48 Nystatin 100,000 Unit/Ml Udc 5 Ml PO 400,000 unit QID AZIZA Administration Ondansetron HCl 4 mg 09/07/23 16:37 09/07/23 19:48 Ondansetron 2 Mg/Ml Sdv 2 Ml IVP 4 mg Q8H PRN Administration vomiting, or N/V if npo Pantoprazole Sodium 40 mg 09/07/23 16:37 09/11/23 18:12 Pantoprazole 40 Mg Sdv IVP 40 mg Q24H AZIZA Administration Peritoneal Dialysis Solution 2,000 ml 09/12/23 10:00 09/12/23 10:56 Dianeal Low Ca W/1.5% Dex 2,000 Ml Bag INTRAPERIT 2,000 ml PROTOCOL AZIZA Administration Sevelamer Carbonate 2,400 mg 09/07/23 18:00 09/12/23 09:48 Sevelamer 800 Mg Tablet PO 2,400 mg BID AZIZA Administration PFSH Acute 2 PFSH: Medical History Hyperlipidemia, mixed Essential hypertension Environmental and seasonal allergies Diabetes mellitus with hyperglycemia, with long-term current use of insulin Peritoneal dialysis status Dyslipidemia CRF (chronic renal failure) DVT (deep venous thrombosis) Surgical History Status post colonoscopy (12/11/20) polyp, diverticulosis, internal hemorrhoids Peritoneal dialysis catheter in situ History of parathyroid surgery S/P IVC filter Hx of hysterectomy Family History Father Cancer Denies family history of Anesthesia complication Bleeding disorder Social History Smoking and tobacco/nicotine status: former use of tobacco/nicotine Second hand smoke exposure: No Alcohol intake: never Substance/Drug Use: never Adopted: No Caregiver/support person: No Lives independently: Yes Household members: none Housing: House Marital status: Number of children: 3 Highest education level completed: Some College, No Degree service: No Current occupational status: disabled Vitals/I&O/Wt Last Vital Signs Temp 98.4 F 09/12/23 12:00 Pulse 102 H 09/12/23 13:00 Resp 24 H 09/12/23 13:00 BP 120/79 09/12/23 13:00 Pulse Ox 96 09/12/23 13:00 O2 Del Method Room Air 09/12/23 07:46 O2 Flow Rate 3 09/07/23 22:15 09/11/23 09/12/23 09/12/23 22:59 06:59 14:59 Intake Total 520 / 2620 150 / 2770 2570 / 2570 Output Total 150 / 150 2300 / 2450 150 / 150 Balance 370 / 2470 -2150 / 320 2420 / 2420 Weight last 48 hrs Weight 217 lb Weight 216 lb 4.8 oz Physical Exam 2 Narrative: General : Patient is well developed , no acute distress, oriented x3 Head and neck: No evidence of lower neck incision from previous parathyroidectomy, otherwise normal neck anatomy. Nose : Mucous membranes are without erythema. Lungs : Equal chest rise bilaterally, no use of accessory muscles, trachea is midline. CV : Rate and rhythm are normal. Abdomen : Soft, ND, NT, peritoneal dialysis catheter not Extremities : No edema. Upper extremities are normal bilaterally. Back : non-tender to palpation, no CVA tenderness. Data 09/12/23 09:30 09/12/23 03:32 Micro: Microbiology 09/09/23 03:14 Gram Stain - Final Peritoneal Fluid Body Fluid Culture - Final 09/09/23 03:14 Body Fluid Culture - Final Peritoneal Fluid 09/07/23 20:42 Mycobacterial Smear - Preliminary Body Fluids - Pleura 09/07/23 11:45 Blood Culture - Preliminary Blood 09/11/23 15:51 Blood Culture - Preliminary Blood SPECIMEN COLLECTED 09/11/23 15:56 Blood Culture - Preliminary Blood SPECIMEN COLLECTED 09/07/23 20:42 Anaerobic Culture - Preliminary Pericardial Fluid 09/07/23 20:42 Gram Stain - Final Pericardial Fluid Body Fluid Culture - Final A&P Assessment and plan (1) CRF (chronic renal failure): Plan 62-year-old female who requires dialysis catheter placement for he is starting hemodialysis. After discussion of all the risk and benefits with the patient and family members they have decided to proceed with tunneled dialysis catheter placement. I have discussed the risks of bleeding, infection, cannulation of the carotid artery, failed cannulation, need for additional surgical interventions, pneumothorax requiring tube thoracostomy and additional surgical intervention, injury to the great vessels at the level of the chest or heart that can lead to cardiac arrest and need for major surgery, long-term consequences like vein stenosis, infection of the catheter, catheter nonfunction. Patient and family member show understanding. Procedure will be booked for tomorrow morning, patient has been noted to have a right subclavian central line, I Discussed with the medical team and they have agreed to remove the central line in order for us to do right IJ access. Consult Attestations 2 Medical Necessity Statement: Per medical team Coding Level of Care Code 10164 Diagnoses CRF (chronic renal failure) N18.9
--- NOTE | 2023-09-12 15:01 | P.PN_ITS ---
Subjective 2 Subjective: Patient stable. Off pressors and blood pressure is stable. Vitals/I&O/Wt Last Vital Signs Temp 98.4 F 09/12/23 12:00 Pulse 102 H 09/12/23 13:00 Resp 24 H 09/12/23 13:00 BP 120/79 09/12/23 13:00 Pulse Ox 96 09/12/23 13:00 O2 Del Method Room Air 09/12/23 07:46 O2 Flow Rate 3 09/07/23 22:15 09/12/23 09/12/23 09/12/23 06:59 14:59 22:59 Intake Total 150 / 2770 2570 / 2570 Output Total 2300 / 2450 150 / 150 Balance -2150 / 320 2420 / 2420 Weight last 48 hrs Weight 217 lb Weight 216 lb 4.8 oz Physical Exam 2 Narrative: GENERAL: Patient is Drowsy NECK: No jugular vein distension. [] HEENT: No cyanosis. No icterus. No pallor. [] HEART: Regular S1 and S2. No murmur, rub or gallop. [] LUNGS: Clear to auscultate bilaterally. [] CENTRAL NERVOUS SYSTEM: Grossly nonfocal. [] EXTREMITIES: Lower extremities with 1+ edema bilaterally Data 09/13/23 03:15 09/13/23 03:15 Micro: Microbiology 09/09/23 03:14 Gram Stain - Final Peritoneal Fluid Body Fluid Culture - Final 09/09/23 03:14 Body Fluid Culture - Final Peritoneal Fluid 09/07/23 20:42 Mycobacterial Smear - Preliminary Body Fluids - Pleura 09/07/23 11:45 Blood Culture - Preliminary Blood 09/11/23 15:51 Blood Culture - Preliminary Blood SPECIMEN COLLECTED 09/11/23 15:56 Blood Culture - Preliminary Blood SPECIMEN COLLECTED 09/07/23 20:42 Anaerobic Culture - Preliminary Pericardial Fluid 09/07/23 20:42 Gram Stain - Final Pericardial Fluid Body Fluid Culture - Final A&P Assessment and plan (1) Pericardial effusion: (2) Cardiomegaly: (3) Hypotension: Qualifiers: Hypotension type: unspecified hypotension type Qualified Code(s): I95.9 - Hypotension, unspecified (4) Essential hypertension: (5) Hyperlipidemia, mixed: (6) Troponin level elevated: (7) Diabetes mellitus with hyperglycemia, with long-term current use of insulin: Plan Patient is hemodynamically stable. we will continue to monitor Plan for initiation of hemodialysis per nephrology. Thank you for involving us with care of this patient. Please call with questions. Attestations 2 Medical Necessity Statement*: Care expected to cross 2 midnights. Coding Level of Care Code Acute Code for Chg Fwd Diagnoses Pericardial effusion I31.39 Cardiomegaly I51.7 Hypotension I95.9 Hypotension type: unspecified hypotension type Essential hypertension I10 Hyperlipidemia, mixed E78.2 Troponin level elevated R79.89 Diabetes mellitus with hyperglycemia, with long-term current use of insulin E11.65; Z79.4
--- NOTE | 2023-09-12 15:06 | P.PN_ITS ---
Subjective 2 Subjective: Hospital course, labs appreciated. Patient's hemoglobin from today morning came out to be less than 6 for which she had received 1 unit of blood transfusion. Seen with family members at bedside. Patient states her breathing is stable. Denies any nausea, vomiting, headache. Saturating well on room air. Underwent going peritoneal fluid indwelling for PD. Vitals/I&O/Wt Last Vital Signs Temp 98.4 F 09/12/23 12:00 Pulse 102 H 09/12/23 13:00 Resp 24 H 09/12/23 13:00 BP 120/79 09/12/23 13:00 Pulse Ox 96 09/12/23 13:00 O2 Del Method Room Air 09/12/23 07:46 O2 Flow Rate 3 09/07/23 22:15 09/12/23 09/12/23 09/12/23 06:59 14:59 22:59 Intake Total 150 / 2770 2570 / 2570 Output Total 2300 / 2450 150 / 150 Balance -2150 / 320 2420 / 2420 Weight last 48 hrs Weight 98.43 kg Weight 98.112 kg Physical Exam 2 Const: COMMON NORMALS: patient oriented x3 and alert GENERAL APPEARANCE: c ooperative ORIENTATION/CONSCIOUSNESS: Yes awake HENMT: COMMON NORMALS: oropharynx normal Neck/C-Spine: COMMON NORMALS: no JVD Resp: COMMON NORMALS: normal respiratory effort and clear to auscultation bilaterally AUSCULTATION: clear to auscultation bilaterally Cardio: COMMON NORMALS: no JVD, regular rhythm, S1 normal heart sound present, S2 normal heart sound present and No murmurs present (Cardio) RHYTHM: regular rhythm HEART SOUNDS: S1 normal heart sound present and S2 normal heart sound present GI: COMMON NORMALS: Normal to inspection, nondistended, normoactive bowel sounds present, Soft to palpation and non-tender PALPATION: Yes Soft to palpation : OTHER: No erythema around PD catheter. Extremity: COMMON NORMALS: no joint enlargement and no pedal edema Neuro: COMMON NORMALS: patient oriented x3 and moves all extremities S ENSORIUM/ORIENTATION: Yes alert Skin: NARRATIVE SKIN EXAM: Overall, 3 cm at least stage II pressure ulceration with necrotic border under medial left breast. No tunneling, no drainage. OTHER: Ichthyosis bilateral lower extremities. Data 09/12/23 09:30 09/12/23 03:32 Micro: Microbiology 02/02/24 03:14 Gram Stain - Final Peritoneal Fluid Body Fluid Culture - Final 09/09/23 03:14 Body Fluid Culture - Final Peritoneal Fluid 09/07/23 20:42 Mycobacterial Smear - Preliminary Body Fluids - Pleura 09/07/23 11:45 Blood Culture - Preliminary Blood 09/11/23 15:51 Blood Culture - Preliminary Blood SPECIMEN COLLECTED 09/11/23 15:56 Blood Culture - Preliminary Blood SPECIMEN COLLECTED 09/07/23 20:42 Anaerobic Culture - Preliminary Pericardial Fluid 09/07/23 20:42 Gram Stain - Final Pericardial Fluid Body Fluid Culture - Final A&P Assessment and plan (1) Sepsis: Blood cultures from admission negative. Confirmed with microbiology lab. No more concerns for bacteremia. Repeat blood cultures sent on 09/11 so far negative as well. Patient has remained hemodynamically stable and afebrile. Peritoneal and pericardial fluid cultures so far negative. Mild cellulitis around PD catheter insertion site improving. Continue with empiric antibiotic coverage with IV vancomycin and Zosyn. If repeat blood cultures sent on 09/11 remain negative we will plan to discontinue antibiotics within next 48 hours. (2) CRF (chronic renal failure): Chronic renal failure on peritoneal dialysis. Patient admitted with uremic pericarditis with concerns for calciphylaxis and worsening renal functions. High concerns for peritoneal dialysis failure. Appreciate nephrology recommendations. Plan to transition over to hemodialysis for now. Will consult surgery for tunneled catheter placement. For now continue with peritoneal dialysis catheter. Remove right IJ central line. (3) Pericardial effusion: Most likely in setting of uremia. Pathology and blood cultures along with pericardial culture results appreciated. Appreciate echocardiogram results. Sheath removed. (4) Anemia: Target hemoglobin more than 8. Post 1 unit blood transfusion. Check stool for occult blood. Patient already received transfusion so we cannot check iron panel. Check folate levels and vitamin B12 level. Monitor hemoglobin daily. Protonix 40 mg IV twice daily. (5) Hypotension: Present on admission. Most likely in setting of pericardial large effusion with concerns for tamponade. Shock resolved. Goal blood pressure less than 140/90 mmHg with mean over 65. Patient remains tachycardic. Restart metoprolol 25 mg twice daily. Qualifiers: Hypotension type: unspecified hypotension type Qualified Code(s): I95.9 - Hypotension, unspecified (6) Troponin level elevated: Most likely in setting of demand ischemia. Chest pain-free. Continue with aspirin, atorvastatin 40 mg daily.. Added beta-veronica as above. Heparin drip on hold given anemia requiring a blood transfusion. Check A1c, lipid panel. (7) Dysphagia: Dysphagia diet. Tolerating so far. Reinforced aspiration precautions with her and visiting family. Appreciate speech therapy results. (8) Peritoneal dialysis status: As above. (9) Syncope and collapse: Likely secondary to hypotension, sepsis, additional cardiac evaluation as below. (10) Pressure ulcer: No abscess on ultrasound. Pressure injury? She seems to favor laying on the left side as per patient ever Since her past strokes. Possible calciphylaxis. Considerations are being made for more effective dialysis.Concern for failure of PD. Underneath left breast. Wound care requested. (11) Cardiomegaly: Pericardial effusion as above. (12) Diabetes mellitus with hyperglycemia, with long-term current use of insulin: Plan Goals of care discussion: She would want attempted resuscitation in case of cardiopulmonary arrest. Family are in the process of finalizing DPOA paperwork. Recent cellulitis around PD catheter. Resolved after completion of antibiotic course. History of DVT, status post IVC filter HLD: Unclear benefit of statin in patients with ESRD on dialysis. HTN: hold antihypertensives. DM2: Accu-Cheks. Sliding scale insulin. Other medical problems Analgesia: Tylenol as needed Glycemic control: Insulin low-dose protocol ACHS. Nutrition: Dysphagia level 5 diet, n.p.o. after midnight CODE STATUS: Full code. Goals of care discussion as above. PUD prophylaxis: Protonix twice daily DVT prophylaxis: SCD, no medical prophylaxis given anemia Discharge planning: Home once medically stable. Will require outpatient dialysis. Continue with care at [facility]. This documentation was created by [employer] programming coordinator software. Every effort was made to ensure accuracy of programming coordinator. Any obvious errors or omissions should be clarified with the author of the document. Attestations 2 Medical Necessity Statement*: Requires further hospitalization for management of end-stage renal disease on chronic peritoneal dialysis, peritoneal dialysis failure leading to uremic symptoms along with uremic pericardial effusion and cardiac tamponade leading to shock, peritoneal dialysis catheter cellulitis Diagnoses Sepsis A41.9 CRF (chronic renal failure) N18.9 Pericardial effusion I31.39 Anemia D64.9 Hypotension I95.9 Hypotension type: unspecified hypotension type Troponin level elevated R79.89 Dysphagia R13.10 Peritoneal dialysis status Z99.2 Syncope and collapse R55 Pressure ulcer L89.90 Cardiomegaly I51.7 Diabetes mellitus with hyperglycemia, with long-term current use of insulin E11.65; Z79.4
[2023-09-12] MEDS: metoprolol tartrate 25 mg Tablet PO ×2 (17:09→21:02)
[2023-09-12] MEDS: pantoprazole 40 mg SDV IVP (17:09)
[2023-09-12 18:34] LABS: Glucose Point of Care 183 mg/dL (70-110)
[2023-09-12 21:09] LABS: Glucose Point of Care 209 mg/dL (70-110)
[2023-09-13] VITALS (35 sets, daily range): BP systolic 107–157; BP diastolic 56–82; PULSE 63–110; RESP 14–25; TEMP 36.1–36.9; O2SAT 85–100
[2023-09-13] MEDS: albumin 25 G/100 ML BAG 60 G IV ×2 (01:24→09:43)
[2023-09-13] MEDS: piperacillin-tazobactam 3.375 GM in sodium chloride 0.9% (plus) 50 ML IV ×2 (02:58→13:53)
[2023-09-13 03:57] LABS: Basophils % 0.3 %; Eosinophils # 0.2 10^3/uL (0.0-0.8); Eosinophils % 2.5 %; Hematocrit 25.3 % (36-47); Lymphocytes # 0.9 10^3/uL (0.8-4.8); Lymphocytes % 12.2 %; Mean Corpuscular HGB Conc 33.2 g/dL (30-55); Mean Corpuscular Hemoglobin 32.6 pg (27-33); Mean Corpuscular Volume 98.1 fl (85-98); Mean Platelet Volume 10.6 fL (7.4-10.4); Monocytes # 0.5 10^3/uL (0.2-0.9); Monocytes % 6.3 %; Neutrophils # 5.75 10^3/uL (1.8-7.7); Neutrophils % 77.1 %; Nucleated Red Blood Cells % 0 %; Platelet Count 86 10^3/cmm (157-399); Red Blood Count 2.58 10^6/uL (3.85-5.65); Red Cell Distribution Width 21.1 % (12.1-15.1); White Blood Count 7.46 10^3/uL (3.29-11.43)
[2023-09-13 04:12] LABS: Estmated Average Glucose 146; Hemoglobin A1C 6.7 % (4.0-6.0)
[2023-09-13 04:16] LABS: Vancomycin Random 27.9 ug/mL (20.0-40.0)
[2023-09-13 04:17] LABS: Chol HDL Ratio 2.87 mg/dL (0.0-4.40); Cholesterol 43 mg/dL (0-200); HDL Cholesterol 15 mg/dL (60-100); LDL Cholesterol Calculated 17 mg/dL (50-129); Magnesium 1.8 mg/dL (1.7-2.3); Phosphorus 3.5 mg/dL (2.5-4.5); Triglycerides 53 mg/dL (0-150); VLDL Cholestrol Calculation 11 mg/dL (0-30)
[2023-09-13 04:25] LABS: Alanine Aminotransferase 15 U/L (0-33); Albumin Level 3.9 g/dL (3.5-5.2); Alkaline Phosphatase 42 U/L (35-105); Anion Gap 24.4 (5-19); Aspartate Amino Transferase 18 U/L (0-32); Blood Urea Nitrogen 67 mg/dL (8-23); Calcium 8.8 mg/dL (8.5-10.5); Carbon Dioxide 19 mmol/L (22-29); Chloride 94 mmol/L (98-107); Globulin 1.4 g/dL (1.3-4.6); Glomerular Filtration Rate 3.2 mL/min (90-130); Glucose 135 mg/dL (65-115); Osmolality Calculated 297 mOsm/kg (285-295); Potassium 4.4 mmol/L (3.5-5.1); Sodium 133 mmol/L (136-145); Total Bilirubin 0.7 mg/dL (0.15-1.2); Total Protein 5.3 g/dL (6.6-8.7)
[2023-09-13 04:52] LABS: Folate Level > 20.0 ng/mL (4.8-37.3)
[2023-09-13 05:02] LABS: Glucose Point of Care 134 mg/dL (70-110)
[2023-09-13] MEDS: pantoprazole 40 mg SDV IVP ×2 (05:26→20:04)
[2023-09-13] MEDS: sodium chloride 0.9% 1,000 ML 30 ML IV (06:30)
--- NOTE | 2023-09-13 06:34 | W.PM.OPSUD ---
Surgery/Procedure H&P Update DATE OF PROCEDURE: September 13, 2023 DATE H&P PERFORMED: 09/12/23 H&P UPDATE INFORMATION: I have reviewed H&P completed within last 30 days, I have examined patient prior to procedure, No changes to prior documentation and H&P is in [facility] EMR on date indicated PREOP DIAGNOSIS: need for hemodialysis PLANNED PROCEDURE: Operation Date: 09/07/23 20:30 Proposed Procedures p Cardiac Catheterization(Not Applicable) - Jules Rogers M.D Operation Date: 09/13/23 07:00 Proposed Procedures p Dialysis Catheter Insertion(Not Applicable) - Marvin Napier MD
--- NOTE | 2023-09-13 06:35 | ANES.PREANE2 ---
Pre-Anesthetic Assessment Height/Weight: Height 1.55 m Weight 96.933 kg Temp Pulse Resp BP Pulse Ox O2 Del Method O2 Flow Rate 97 F L 98 18 130/81 96 Room Air 3 09/13/23 06:14 09/13/23 06:14 09/13/23 06:14 09/13/23 06:14 09/13/23 06:14 09/13/23 06:14 09/07/23 22:15 Preop Diagnosis: need for hemodialysis Operation Date: 09/07/23 20:30 Proposed Procedures p Cardiac Catheterization(Not Applicable) - Jules Rogers M.D Operation Date: 09/13/23 07:00 Proposed Procedures p Dialysis Catheter Insertion(Not Applicable) - Marvin Napier MD Last intake: Intake Last Liquid Date 09/12/23 Last Liquid Time 22:50 Last Solid Date 09/12/23 Last Solid Time 21:30 Exam alert, oriented x 3 and regular rate & rhythm Airway Submandibular: within normal limits Cervical ROM: within normal limits Mallampati: Class I Dentition: false CV/HEM Anemia and Hypertension Chronic Renal Failure dialysis yesterday Anesthetic Plan ASA status: 4 Anesthesia: General Risk of > 500 ml blood loss (7ml/kg in children): No Medications/Allergies Home Medications Medication Instructions Recorded Confirmed Last Taken Type vit B,C-folic ac 800 mcg-zinc 12.5 1 tab PO DAILY 08/18/20 09/07/23 09/04/23 History mg-selen-D3 2,000 unit-vit E tablet (RenaPlex-D) flash glucose scanning reader #1 ea 12/03/22 09/07/23 Unknown Rx (FreeStyle Neo 2 Taft) flash glucose sensor (FreeStyle #2 ea 12/03/22 09/07/23 Unknown Rx Neo 2 Sensor kit) blood-glucose sensor (FreeStyle #6 ea 04/12/23 09/07/23 Unknown Rx Neo 3 Sensor device) glipizide 10 mg tablet, extended 10 mg PO DAILY 04/12/23 09/07/23 09/04/23 History release 24 hr amlodipine 5 mg tablet 5 mg PO DAILY 04/25/23 09/07/23 09/04/23 History atorvastatin 40 mg tablet 40 mg PO DAILY #30 tabs 05/04/23 09/07/23 09/05/23 Rx metoprolol succinate 50 mg 50 mg PO BID #60 tabs 05/04/23 09/07/23 09/04/23 Rx tablet,extended release 24 hr insulin detemir U-100 100 unit/mL 40 unit (0.4 mL) SUBCUT DAILY #25 06/10/23 09/07/23 09/04/23 Rx (3 mL) subcutaneous pen (Levemir mL FlexPen) wheelchair #1 ea 07/08/23 09/07/23 Unknown Rx amoxicillin 875 mg-potassium 1 tab PO BID #7 tabs 09/05/23 09/07/23 Unknown Rx clavulanate 125 mg tablet aspirin 81 mg tablet,delayed 81 mg PO DAILY 09/05/23 09/07/23 09/05/23 History release benzonatate 200 mg capsule 100 mg (1/2 x 200 mg) PO TID Cough 09/05/23 09/07/23 Unknown Rx #30 caps calcium carbonate 500 mg calcium 500 mg PO DAILY 09/05/23 09/07/23 09/04/23 History (1,250 mg) tablet cephalexin 500 mg capsule 500 mg PO DAILY 09/05/23 09/07/23 09/05/23 History guaifenesin 1,200 mg tablet, 1,200 mg PO BID #14 tabs 09/05/23 09/07/23 Unknown Rx extended release 12 hr potassium chloride 20 mEq 20 meq PO DAILY 09/05/23 09/07/23 09/04/23 History tablet,extended release(part/cryst) sevelamer carbonate 800 mg tablet 2,400 mg PO BID 09/05/23 09/07/23 09/04/23 History Allergies Allergy/AdvReac Type Severity Reaction Status Date / Time allopurinol Allergy ADR-Faintin Verified 09/05/23 14:24 g Iodinated Contrast Media Allergy Unknown Verified 09/05/23 14:24 loratadine [From Claritin-D] Allergy Heart Verified 09/05/23 14:24 Palpatations pseudoephedrine Allergy Heart Verified 09/05/23 14:24 [From Claritin-D] Palpatations Current Medications Generic Name Dose Route Start Last Admin Trade Name Freq PRN Reason Stop Dose Admin Aspirin 81 mg 09/08/23 09:00 09/12/23 09:49 Aspirin 81 Mg Ec Tablet PO 81 mg DAILY AZIZA Administration Calcium Carbonate 500 mg 09/08/23 09:00 09/12/23 09:49 Calcium Carbonate 500 Mg Chew Tablet PO 500 mg DAILY AZIZA Administration Heparin Sodium (Porcine) 0 unit 09/07/23 11:55 09/07/23 14:01 Heparin 5,000 Unit/Ml Inj 1 Ml IV 4,000 unit PRN PRN Administration Heparin weight-base protocol Protocol Heparin Sodium/Sodium Chloride 25,000 unit in 500 mls @ 0 mls/hr 09/07/23 12:00 09/07/23 19:27 Heparin Drip IV 0 unit/kg/hr .Q0M AZIZA 0 mls/hr Titration Protocol Per Protocol Piperacillin Sod/Tazobactam 50 mls @ 12.5 mls/hr 09/08/23 02:00 09/13/23 02:58 Sod 3.375 gm/ Sodium Chloride IV 12.5 mls/hr Q12H AZIZA Administration Protocol Vancomycin HCl 1,000 mg/ 250 mls @ 250 mls/hr 09/09/23 15:00 09/11/23 19:38 Sodium Chloride IV Infused Q48H AZIZA Infusion Protocol Albumin Human 25 g in 100 mls @ 60 mls/hr 09/09/23 09:30 09/13/23 03:04 Albumin IV Infused Q8H AZIZA Infusion Sodium Chloride 1,000 mls @ 30 mls/hr 09/13/23 06:15 09/13/23 06:30 Sodium Chloride 0.9% IV 09/14/23 06:14 30 mls/hr .Q24H AZIZA Administration Insulin Human Lispro 0 unit 09/07/23 17:00 09/13/23 05:02 Insulin Lispro 100 Unit/1 Ml SUBCUT Not Given Q6H [facility] Protocol Metoprolol Tartrate 25 mg 09/12/23 15:20 09/12/23 21:02 Metoprolol Tartrate 25 Mg Tablet PO 25 mg BID@0900,2100 AZIZA Administration Nystatin 400,000 unit 09/08/23 13:00 09/12/23 21:03 Nystatin 100,000 Unit/Ml Udc 5 Ml PO 400,000 unit QID AZIZA Administration Ondansetron HCl 4 mg 09/07/23 16:37 09/07/23 19:48 Ondansetron 2 Mg/Ml Sdv 2 Ml IVP 4 mg Q8H PRN Administration vomiting, or N/V if npo Pantoprazole Sodium 40 mg 09/12/23 15:32 09/13/23 05:26 Pantoprazole 40 Mg Sdv IVP 40 mg Q12H AZIZA Administration Peritoneal Dialysis Solution 2,000 ml 09/12/23 18:00 09/12/23 18:00 Dianeal Low Ca W/1.5% Dex 2,000 Ml Bag INTRAPERIT 2,000 ml BID AZIZA Administration Sevelamer Carbonate 2,400 mg 09/07/23 18:00 09/12/23 17:09 Sevelamer 800 Mg Tablet PO 2,400 mg BID AZIZA Administration PFSH Anesthesia Medical History Hyperlipidemia, mixed Essential hypertension Environmental and seasonal allergies Diabetes mellitus with hyperglycemia, with long-term current use of insulin Peritoneal dialysis status Dyslipidemia CRF (chronic renal failure) DVT (deep venous thrombosis) Surgical History Status post colonoscopy (12/11/20) polyp, diverticulosis, internal hemorrhoids Peritoneal dialysis catheter in situ History of parathyroid surgery S/P IVC filter Hx of hysterectomy Family History Father Cancer Denies family history of Anesthesia complication Bleeding disorder Social History Smoking and tobacco/nicotine status: former use of tobacco/nicotine Second hand smoke exposure: No Alcohol intake: never Substance/Drug Use: never Adopted: No Caregiver/support person: No Lives independently: Yes Household members: none Housing: House Marital status: Number of children: 3 Highest education level completed: Some College, No Degree service: No Current occupational status: disabled Data Anesthesia 09/13/23 03:15 09/13/23 03:15 Short CBC 09/12/23 09/12/23 09/13/23 Range/Units 03:32 09:30 03:15 WBC 5.79 7.46 (3.29-11.43) 10^3/uL Hgb 5.90 L* 8.30 L D 8.40 L (11.27-16.99) g/dL Hct 18.1 L* 25.3 L D (36-47) % MCV 107.1 H 98.1 H D (85-98) fl Plt Count 78 L 86 L (157-399) 10^3/cmm Neut % (Auto) 75.8 77.1 % Neut # (Auto) 4.39 5.75 (1.8-7.7) 10^3/uL BMP 09/11/23 09/12/23 09/13/23 03:40 03:32 03:15 Sodium 131 L 132 L 133 L Potassium 4.3 4.1 4.4 Chloride 97 L 96 L 94 L Carbon Dioxide 15 L 19 L 19 L BUN 73 H 70 H 67 H Creatinine 12.4 H* 12.9 H* 11.8 H* Glucose 98 124 H 135 H Calcium 8.2 L 8.2 L 8.8 Liver Function 09/13/23 Range/Units 03:15 Total Bilirubin 0.7 (0.15-1.2) mg/dL AST 18 (0-32) U/L ALT 15 (0-33) U/L Alkaline Phosphatase 42 (35-105) U/L Albumin 3.9 (3.5-5.2) g/dL Blood Bank 09/12/23 04:29 Blood Type A Positive Rho(D) Type Rh positive Antibody Screen Negative Microbiology 09/11/23 15:51 Blood Culture - Preliminary Blood NEGATIVE TO DATE 09/11/23 15:56 Blood Culture - Preliminary Blood NEGATIVE TO DATE 09/07/23 20:42 Anaerobic Culture - Preliminary Pericardial Fluid 09/09/23 03:14 Gram Stain - Final Peritoneal Fluid Body Fluid Culture - Final 09/09/23 03:14 Body Fluid Culture - Final Peritoneal Fluid Cardiac Studies: Echocardiogram 09/07/23 Echocardiogram Limited Views 09/07/23
--- NOTE | 2023-09-13 06:39 | SC_ITS ---
WS: [id number] [place] [id number] REASON FOR EXAM: intraoperative FINDINGS: Dual-lumen dialysis catheter placed trans right jugular. Catheter tip appears to be at the atrial lev el. IMPRESSION: Right IJ dialysis catheter placement as above.
[2023-09-13] MEDS: lidocaine-epi 1% 20 mL INJ INJECTION (07:46)
[2023-09-13] MEDS: heparin, porcine 1,000 unit/mL INJ 10 mL 10000 UNIT IRRIGATION (07:47)
--- NOTE | 2023-09-13 08:08 | PM.OP ---
Operative Report Date of procedure: September 13, 2023 Pre-op diagnosis: Need for hemodialysis Post-op diagnosis: Same Post-op findings: Normal vascular anatomy Procedure done: Insertion of right IJ tunneled dialysis catheter Implants: 23 cm tunneled dialysis catheter with double-lumen Surgeon: Marvin Napier MD Media Reporter: BRADEN OR Staff Estimated blood loss: 10 Complications: none Brief History: 62-year-old female with history of peritoneal dialysis in the past who presents now with worsening kidney failure, she is indicated for hemodialysis. After discussion of risk and benefits with family and patient regarding placement of tunneled dialysis catheter with side to proceed. Procedure: Patient was brought into the OR, she was placed in the supine position, mother anesthesia sedation was given. The neck was prepped and draped as well as the chest in the usual sterile fashion. Timeout was conducted. Identified the right IJ vein using ultrasound guidance, local anesthesia was infiltrated in the subcutaneous tissue above the vein, the right IJ vein was then cannulated with an 18-gauge needle under direct ultrasound visualization, immediate return of blood was noted, a guidewire was advanced through the needle and the needle was removed, the wire localization was verified with ultrasound and also fluoroscopy. I then proceeded to make 0.5 cm incision in the right upper chest in the area previously marked and a 0.5 cm incision at the level of the wire insertion site in the neck. I used a hemostat to create a tunnel from the chest wound to the neck wound and I then proceeded to tunnel the dialysis catheter using the provided tunneler. At this point I proceeded to dilate the venous tract with subsequent sizes of dilators and then I placed the introducer with a peel-off sheath over the wire under direct fluoroscopy guidance. The introducer and guidewire were removed leaving the peel-off sheath in place, the catheter was then advanced through the peel-off sheath and the peel-off sheath was removed leaving the catheter in place. Fluoroscopy confirmed adequate positioning no kinks in the catheter were noted. Excellent return of blood and flushing was noted for both lumens and the catheter was hep-locked. I fix the catheter to the skin with #3-0 nylon and the neck wound was closed with #4-0 Vicryl. Dermabond was applied and a compressive dressing was applied to both the neck and the upper chest. At the end of the procedure all counts were correct the patient tolerated well the procedure and transferred to the PACU in stable condition.
--- NOTE | 2023-09-13 08:12 | XR_ITS ---
WS: [id number] XR chest 1V portable [id number] REASON FOR EXAM: in PACU post dialysis catheter placement. FINDINGS: Right internal jugular dual-lumen dialysis catheter in place the catheter tips are at the atrial leve l. The heart is enlarged. Left hemidiaphragmatic contour obscured presumably secondary to airspace consolidation and/or pleural effusion. Interstitial lung opacities in the lower right lung field. IMPRESSION: Dialysis catheter with position as above. Probable left pleural effusion. Probable interstitial edema in the right lower lung.
[2023-09-13 09:14] LABS: Hepatitis B Surface AB < 3.5 (11.5-1000); Hepatitis B Surface Antigen Non-Reactive (Nonreactive)
[2023-09-13] MEDS: nystatin 100,000 unit/mL UDC 5 mL 400000 UNIT PO ×3 (09:42→20:03)
[2023-09-13] MEDS: insulin glargine 100 units/1 mL 20 UNIT SUBCUT ×2 (09:42→10:00)
[2023-09-13] MEDS: calcium carbonate 500 mg Chew Tablet PO (09:43)
[2023-09-13] MEDS: metoprolol tartrate 25 mg Tablet PO ×2 (09:43→20:03)
[2023-09-13] MEDS: aspirin 81 mg EC Tablet PO (09:43)
[2023-09-13] MEDS: atorvastatin 40 mg Tablet PO (09:43)
[2023-09-13] MEDS: sevelamer 800 mg Tablet 2400 MG PO ×2 (09:45→20:03)
--- NOTE | 2023-09-13 10:19 | P.PN_ITS ---
Subjective 2 Subjective: diomedes any complaints Medications: Reviewed: Yes Vitals/I&O/Wt Last Vital Signs Temp 97 F L 09/13/23 08:13 Pulse 97 09/13/23 08:34 Resp 16 09/13/23 08:34 BP 133/81 09/13/23 08:34 Pulse Ox 94 09/13/23 08:34 O2 Del Method Room Air 09/13/23 08:34 O2 Flow Rate 3 09/07/23 22:15 09/12/23 09/13/23 09/13/23 22:59 06:59 14:59 Intake Total 2270 / 4940 100 / 5040 390 / 390 Output Total 2450 / 2600 2000 / 4600 0 / 0 Balance -180 / 2340 -1900 / 440 390 / 390 Weight last 48 hrs Weight 96.933 kg Weight 98.43 kg Physical Exam 2 Narrative: Patient is awake, alert, not in distress Data 09/13/23 03:15 09/13/23 03:15 Micro: Microbiology 09/07/23 20:42 Anaerobic Culture - Preliminary Pericardial Fluid 09/11/23 15:51 Blood Culture - Preliminary Blood NEGATIVE TO DATE 09/11/23 15:56 Blood Culture - Preliminary Blood NEGATIVE TO DATE 09/09/23 03:14 Gram Stain - Final Peritoneal Fluid Body Fluid Culture - Final 09/09/23 03:14 Body Fluid Culture - Final Peritoneal Fluid A&P Assessment and plan (1) Peritoneal dialysis status: Plan 1. End-stage renal disease: On peritoneal dialysis . Patient is hypotensive and was found to have large pericardial effusion with tamponade and plan for urgent pericardiocentesis -Patient off pressors and , will do 2 PD exchanges today with 1.5% solution Discussed with her PD nurse and also her fuel storage technician-likely has PD membrane failure. Given that Patient is admitted now with uremic pericarditis with t amponade, will benefit from switching to hemodialysis. -Discussed with patient and she is agreeable, s/p tunneled catheter placement and plan for Hd today -Continue to monitor labs and volume status 2. Pericardial effusion with tamponade, status post pericardiocentesis ,cardiology following 3. Hyponatremia: Mild, monitor 4. Anemia :s/p transfusion , will order ANNA 5. Shock, improved, off pressors Patient evaluated using audiovisual cart. Time spent 20 minutes. Attestations 2 Medical Necessity Statement*: per lewis Coding Level of Care Code Acute Code for Chg Fwd Diagnoses Peritoneal dialysis status Z99.2
--- NOTE | 2023-09-13 10:27 | PC.NURSE ---
received from pacu via stretcher at 0840.report received.right upper chest with tunneled dialysis cath site dry and intact.no hematoma noted.palpable radial pulse noted.pt is drowsy but awakens easily.instructed to notify staff for any bleeding,pain..or for any concerns at a all.pt and cg verb understanding of instructions
[2023-09-13] MEDS: acetaminophen 325 mg Tablet 650 MG PO (10:39)
--- NOTE | 2023-09-13 10:47 | ANE.PACU2 ---
Inpatient post-anesthesia follow up: Vital signs: Temperature 97 F Pulse Rate 97 Respiratory Rate 16 Blood Pressure 133/81 Pulse Oximetry 94 Oxygen Delivery Me thod Room Air Oxygen Flow Rate 3 Fraction of Inspir ed Oxygen Hydration adequate: Yes Nausea and vomiting: No Pain level: 1 Mental status: Baseline Additional Comments: no apparent anesthetic complications noted.
[2023-09-13] MEDS: insulin lispro 100 unit/1 mL SUBCUT (12:26)
[2023-09-13 13:34] LABS: Glucose Point of Care 176 mg/dL (70-110)
--- NOTE | 2023-09-13 13:47 | P.PN_ITS ---
Subjective 2 Subjective: No acute vents overnight. Seen with family at bedside. Patient underwent tunneled catheter placement today. Denies any nausea, vomiting, headache. Patient is drowsy today post anesthetic. Seen with sister at bedside. Medications: Reviewed: Yes Vitals/I&O/Wt Last Vital Signs Temp 98.3 F 09/13/23 11:52 Pulse 96 09/13/23 11:52 Resp 22 H 09/13/23 11:52 BP 124/69 09/13/23 11:52 Pulse Ox 100 09/13/23 11:52 O2 Del Method Room Air 09/13/23 11:52 O2 Flow Rate 3 09/07/23 22:15 09/12/23 09/13/23 09/13/23 22:59 06:59 14:59 Intake Total 2270 / 4940 100 / 5040 390 / 390 Output Total 2450 / 2600 2000 / 4600 0 / 0 Balance -180 / 2340 -1900 / 440 390 / 390 Weight last 48 hrs Weight 96.933 kg Weight 98.43 kg Physical Exam 2 Const: COMMON NORMALS: patient oriented x3 and alert GENERAL APPEARANCE: c ooperative ORIENTATION/CONSCIOUSNESS: Yes awake HENMT: COMMON NORMALS: oropharynx normal Neck/C-Spine: COMMON NORMALS: no JVD Resp: COMMON NORMALS: normal respiratory effort and clear to auscultation bilaterally AUSCULTATION: clear to auscultation bilaterally Cardio: COMMON NORMALS: no JVD, regular rhythm, S1 normal heart sound present, S2 normal heart sound present and No murmurs present (Cardio) RHYTHM: regular rhythm HEART SOUNDS: S1 normal heart sound present and S2 normal heart sound present GI: COMMON NORMALS: Normal to inspection, nondistended, normoactive bowel sounds present, Soft to palpation and non-tender PALPATION: Yes Soft to palpation : OTHER: No erythema around PD catheter. Extremity: COMMON NORMALS: no joint enlargement and no pedal edema Neuro: COMMON NORMALS: patient oriented x3 and moves all extremities S ENSORIUM/ORIENTATION: Yes alert Skin: NARRATIVE SKIN EXAM: Overall, 3 cm at least stage II pressure ulceration with necrotic border under medial left breast. No tunneling, no drainage. OTHER: Ichthyosis bilateral lower extremities. Maculopapular rash in the buttocks: Most likely herpetic lesion. Data 09/13/23 03:15 09/13/23 03:15 Micro: Microbiology 09/07/23 20:42 Anaerobic Culture - Preliminary Pericardial Fluid 09/11/23 15:51 Blood Culture - Preliminary Blood NEGATIVE TO DATE 09/11/23 15:56 Blood Culture - Preliminary Blood NEGATIVE TO DATE 09/09/23 03:14 Gram Stain - Final Peritoneal Fluid Body Fluid Culture - Final 09/09/23 03:14 Body Fluid Culture - Final Peritoneal Fluid A&P Assessment and plan (1) Sepsis: Blood cultures from admission negative. Confirmed with microbiology lab. No more concerns for bacteremia. Repeat blood cultures sent on 09/11 so far negative as well. Patient has remained hemodynamically stable and afebrile. Peritoneal and pericardial fluid cultures so far negative. Mild cellulitis around PD catheter insertion site improving. Continue with empiric antibiotic coverage with IV vancomycin and Zosyn. If repeat blood cultures sent on 09/11 remain negative we will plan to discontinue antibiotics within next 48 hours. (2) CRF (chronic renal failure): Chronic renal failure on peritoneal dialysis. Patient admitted with uremic pericarditis with concerns for calciphylaxis and worsening renal functions. High concerns for peritoneal dialysis failure. Appreciate nephrology recommendations. Plan to transition over to hemodialysis for now. Will consult surgery for tunneled catheter placement. For now continue with peritoneal dialysis catheter. Remove right IJ central line. (3) Pericardial effusion: Most likely in setting of uremia. Pathology and blood cultures along with pericardial culture results appreciated. Appreciate echocardiogram results. Sheath removed. (4) Anemia: Most likely in setting of chronic kidney disease. Target hemoglobin more than 8. Post 1 unit blood transfusion. Check stool for occult blood. Patient already received transfusion so we cannot check iron panel. Check folate levels and vitamin B12 level. Monitor hemoglobin daily. Protonix 40 mg IV twice daily. (5) Hypotension: Present on admission. Most likely in setting of pericardial large effusion with concerns for tamponade. Shock resolved. Goal blood pressure less than 140/90 mmHg with mean over 65. Patient remains tachycardic. Restart metoprolol 25 mg twice daily. Qualifiers: Hypotension type: unspecified hypotension type Qualified Code(s): I95.9 - Hypotension, unspecified (6) Troponin level elevated: Most likely in setting of demand ischemia. Chest pain-free. Continue with aspirin, atorvastatin 40 mg daily.. Added beta-veronica as above. Heparin drip on hold given anemia requiring a blood transfusion. Appreciate A1c, lipid panel. (7) Dysphagia: Dysphagia diet. Tolerating so far. Reinforced aspiration precautions with her and visiting family. Appreciate speech therapy results. (8) Peritoneal dialysis status: As above. (9) Syncope and collapse: Likely secondary to hypotension, sepsis, additional cardiac evaluation as below. (10) Pressure ulcer: No abscess on ultrasound. Pressure injury? She seems to favor laying on the left side as per patient ever Since her past strokes. Possible calciphylaxis. Considerations are being made for more effective dialysis. Concern for failure of PD. Underneath left breast. Wound care requested. (11) Cardiomegaly: Pericardial effusion as above. (12) Diabetes mellitus with hyperglycemia, with long-term current use of insulin: Plan Goals of care discussion: She would want attempted resuscitation in case of cardiopulmonary arrest. Family are in the process of finalizing DPOA paperwork. Recent cellulitis around PD catheter. Resolved after completion of antibiotic course. History of DVT, status post IVC filter HLD: Unclear benefit of statin in patients with ESRD on dialysis. HTN: hold antihypertensives. DM2: Accu-Cheks. Sliding scale insulin. Other medical problems Analgesia: Tylenol as needed Glycemic control: Insulin low-dose protocol ACHS. Nutrition: Dysphagia level 5 diet, n.p.o. after midnight CODE STATUS: Full code. Goals of care discussion as above. PUD prophylaxis: Protonix twice daily DVT prophylaxis: SCD, heparin 5000 every 12 hourly Discharge planning: Discharge to SNF once medically ready. Will require outpatient dialysis. Continue with care at [facility]. This documentation was created by [employer] tab machine operator software. Every effort was made to ensure accuracy of tab machine operator. Any obvious errors or omissions should be clarified with the author of the document. Plan for the day: Patient underwent tunneled catheter placement today. Plan for hemodialysis. Will leave the peritoneal dialysis catheter in for now. Will need to follow-up as an outpatient with outpatient conveyor operator going forward within the next few months for further decision of continuing PD versus hemodialysis depending on convenience and how patient responds to hemodialysis. Hemoglobin stable. 8.4. Monitor electrolytes. Check free T3, free T4. Blood pressure stable. Goal blood pressure less than 140/90 mmHg. Stop any further scheduled albumin. Patient does have herpetic lesion on the buttocks. Start on Valtrex 500 mg daily postdialysis on the day of dialysis for next 7 days as per renal functions. Physical therapy. Out of bed to chair. Diet changed back to dysphagia level 5 renal dialysis diet. Attestations 2 Medical Necessity Statement*: Requires further hospitalization for management of failure of peritoneal dialysis while hemodialysis is initiated and the patient was initially admitted for cardiac tamponade secondary to uremia Diagnoses Sepsis A41.9 CRF (chronic renal failure) N18.9 Pericardial effusion I31.39 Anemia D64.9 Hypotension I95.9 Hypotension type: unspecified hypotension type Troponin level elevated R79.89 Dysphagia R13.10 Peritoneal dialysis status Z99.2 Syncope and collapse R55 Pressure ulcer L89.90 Cardiomegaly I51.7 Diabetes mellitus with hyperglycemia, with long-term current use of insulin E11.65; Z79.4
--- NOTE | 2023-09-13 14:07 | P.PN_ITS ---
Subjective 2 Subjective: Patient is feeling well. No chest pain. Had dialysis catheter placement. Vitals/I&O/Wt Last Vital Signs Temp 98.3 F 09/13/23 11:52 Pulse 96 09/13/23 11:52 Resp 22 H 09/13/23 11:52 BP 124/69 09/13/23 11:52 Pulse Ox 100 09/13/23 11:52 O2 Del Method Room Air 09/13/23 11:52 O2 Flow Rate 3 09/07/23 22:15 09/12/23 09/13/23 09/13/23 22:59 06:59 14:59 Intake Total 2270 / 4940 100 / 5040 390 / 390 Output Total 2450 / 2600 2000 / 4600 0 / 0 Balance -180 / 2340 -1900 / 440 390 / 390 Weight last 48 hrs Weight 213 lb 11.2 oz Weight 217 lb Physical Exam 2 Narrative: GENERAL: Patient is Drowsy NECK: No jugular vein distension. [] HEENT: No cyanosis. No icterus. No pallor. [] HEART: Regular S1 and S2. No murmur, rub or gallop. [] LUNGS: Clear to auscultate bilaterally. [] CENTRAL NERVOUS SYSTEM: Grossly nonfocal. [] EXTREMITIES: Lower extremities with 1+ edema bilaterally Data 09/14/23 03:47 09/14/23 03:47 Micro: Microbiology 09/07/23 20:42 Anaerobic Culture - Preliminary Pericardial Fluid 09/11/23 15:51 Blood Culture - Preliminary Blood NEGATIVE TO DATE 09/11/23 15:56 Blood Culture - Preliminary Blood NEGATIVE TO DATE 09/09/23 03:14 Gram Stain - Final Peritoneal Fluid Body Fluid Culture - Final 09/09/23 03:14 Body Fluid Culture - Final Peritoneal Fluid A&P Assessment and plan (1) Pericardial effusion: (2) Cardiomegaly: (3) Hypotension: Qualifiers: Hypotension type: unspecified hypotension type Qualified Code(s): I95.9 - Hypotension, unspecified (4) Essential hypertension: (5) Hyperlipidemia, mixed: (6) Troponin level elevated: (7) Diabetes mellitus with hyperglycemia, with long-term current use of insulin: Plan Patient is hemodynamically stable. No changes. Thank you for involving us with care of this patient. Cardiology will sign off. Please call with questions. Attestations 2 Medical Necessity Statement*: Care expected to cross 2 midnights. Coding Level of Care Code Acute Code for Chg Fwd Diagnoses Pericardial effusion I31.39 Cardiomegaly I51.7 Hypotension I95.9 Hypotension type: unspecified hypotension type Essential hypertension I10 Hyperlipidemia, mixed E78.2 Troponin level elevated R79.89 Diabetes mellitus with hyperglycemia, with long-term current use of insulin E11.65; Z79.4
[2023-09-13 14:46] LABS: Free T4 Free Thyroxine 0.88 ng/dL (0.82-1.77); T3 Free 1.5 PG/ML (2.0-4.4)
[2023-09-13 15:35] LABS: DNA AB (DS) CRITHIDIA,IFA NEGATIVE (NEGATIVE)
--- NOTE | 2023-09-13 16:40 | PC.HD ---
Hemodialysis consent signed. Heparin 1000 units loading dose administered via venous port of HD catheter per special events driver's orders at 1620.
[2023-09-13] MEDS: valACYclovir 1,000 mg Tablet 500 MG PO (20:03)
[2023-09-13 20:19] LABS: Glucose Point of Care 110 mg/dL (70-110)
[2023-09-14] VITALS (24 sets, daily range): BP systolic 108–157; BP diastolic 45–78; PULSE 68–104; RESP 9–27; TEMP 35.9–36.6; O2SAT 95–98
[2023-09-14] MEDS: piperacillin-tazobactam 3.375 GM in sodium chloride 0.9% (plus) 50 ML IV (01:52)
[2023-09-14 04:02] LABS: Basophils % 0.2 %; Eosinophils # 0.1 10^3/uL (0.0-0.8); Eosinophils % 1.3 %; Lymphocytes # 0.8 10^3/uL (0.8-4.8); Lymphocytes % 8.4 %; Mean Corpuscular Hemoglobin 32.2 pg (27-33); Mean Corpuscular Volume 97.8 fl (85-98); Mean Platelet Volume 10.8 fL (7.4-10.4); Monocytes # 0.6 10^3/uL (0.2-0.9); Monocytes % 5.6 %; Neutrophils # 8.29 10^3/uL (1.8-7.7); Neutrophils % 83.4 %; Nucleated Red Blood Cells % 0 %; Platelet Count 96 10^3/cmm (157-399); Red Blood Count 2.76 10^6/uL (3.85-5.65); Red Cell Distribution Width 20.7 % (12.1-15.1); White Blood Count 9.95 10^3/uL (3.29-11.43)
[2023-09-14 04:19] LABS: Alanine Aminotransferase 14 U/L (0-33); Albumin Level 3.5 g/dL (3.5-5.2); Alkaline Phosphatase 52 U/L (35-105); Anion Gap 18.1 (5-19); Aspartate Amino Transferase 25 U/L (0-32); Blood Urea Nitrogen 35 mg/dL (8-23); Calcium 8.2 mg/dL (8.5-10.5); Carbon Dioxide 23 mmol/L (22-29); Chloride 96 mmol/L (98-107); Globulin 1.6 g/dL (1.3-4.6); Glomerular Filtration Rate 4.9 mL/min (90-130); Glucose 157 mg/dL (65-115); Osmolality Calculated 287 mOsm/kg (285-295); Phosphorus 2.7 mg/dL (2.5-4.5); Potassium 4.1 mmol/L (3.5-5.1); Sodium 133 mmol/L (136-145); Total Bilirubin 0.8 mg/dL (0.15-1.2); Total Protein 5.1 g/dL (6.6-8.7)
[2023-09-14 04:24] LABS: Magnesium 1.8 mg/dL (1.7-2.3)
[2023-09-14 04:25] LABS: Vancomycin Random 22.5 ug/mL (20.0-40.0)
[2023-09-14 05:48] LABS: Glucose Point of Care 148 mg/dL (70-110)
[2023-09-14] MEDS: pantoprazole 40 mg SDV IVP ×2 (06:00→18:22)
[2023-09-14] MEDS: insulin lispro 100 unit/1 mL SUBCUT ×2 (08:12→18:25)
[2023-09-14] MEDS: nystatin 100,000 unit/mL UDC 5 mL 400000 UNIT PO ×2 (08:13→13:06)
[2023-09-14] MEDS: calcium carbonate 500 mg Chew Tablet PO (08:13)
[2023-09-14] MEDS: aspirin 81 mg EC Tablet PO (08:13)
[2023-09-14] MEDS: atorvastatin 40 mg Tablet PO (08:13)
[2023-09-14] MEDS: metoprolol tartrate 25 mg Tablet PO ×2 (08:14→20:52)
[2023-09-14] MEDS: sevelamer 800 mg Tablet 2400 MG PO ×2 (08:14→18:20)
--- NOTE | 2023-09-14 10:51 | P.PN_ITS ---
Subjective 2 Subjective: HD yesterday Medications: Reviewed: Yes Vitals/I&O/Wt Last Vital Signs Temp 97.6 F 09/14/23 05:00 Pulse 84 09/14/23 06:16 Resp 22 H 09/14/23 05:00 BP 108/45 09/14/23 05:00 Pulse Ox 97 09/13/23 21:00 O2 Del Method Room Air 09/13/23 15:42 O2 Flow Rate 3 09/07/23 22:15 09/13/23 09/14/23 09/14/23 22:59 06:59 14:59 Intake Total 690 / 1080 50 / 1130 180 / 180 Output Total 1800 / 1800 Balance -1110 / -720 50 / -670 180 / 180 Weight last 48 hrs Weight 93.304 kg Weight 96 kg Weight 96.933 kg Physical Exam 2 Narrative: Patient is awake, alert, not in distress Data 09/14/23 03:47 09/14/23 03:47 Micro: Microbiology 09/07/23 11:45 Blood Culture - Final Blood 09/07/23 11:40 Blood Culture - Final Blood 09/07/23 20:42 Anaerobic Culture - Preliminary Pericardial Fluid A&P Assessment and plan (1) Peritoneal dialysis status: Plan 1. End-stage renal disease: On peritoneal dialysis . Patient is hypotensive and was found to have large pericardial effusion with tamponade and plan for urgent pericardiocentesis -Patient off pressors and , will do 2 PD exchanges today with 1.5% solution Discussed with her PD nurse and also her marketing and promotions manager-likely has PD membrane failure. Given that Patient is admitted now with uremic pericarditis with t amponade, will benefit from switching to hemodialysis. -Discussed with patient and she is agreeable, s/p tunneled catheter placement and s/p HD yesterday , next HD in AM -Continue to monitor labs and volume status 2. Pericardial effusion with tamponade, status post pericardiocentesis ,cardiology following 3. Hyponatremia: Mild, monitor 4. Anemia :s/p transfusion , s/p ANNA 5. Shock, improved, off pressors Patient evaluated using audiovisual cart. Time spent 20 minutes. Attestations 2 Medical Necessity Statement*: per medicine team Coding Level of Care Code Acute Code for Chg Fwd Diagnoses Peritoneal dialysis status Z99.2
--- NOTE | 2023-09-14 11:20 | PM.PN ---
Subjective Subjective: No acute vents overnight. Underwent first session of dialysis yesterday. Patient is more awake and alert today morning. Able to have complete conversation. Denies any nausea, vomiting, headache. Has remained hemodynamically stable and afebrile. Medications: Reviewed: Yes Vitals/I&O/Wt Last Vital Signs Temp 97.6 F 09/14/23 05:00 Pulse 84 09/14/23 06:16 Resp 22 H 09/14/23 05:00 BP 108/45 09/14/23 05:00 Pulse Ox 97 09/13/23 21:00 O2 Del Method Room Air 09/13/23 15:42 O2 Flow Rate 3 09/07/23 22:15 09/13/23 09/14/23 09/14/23 22:59 06:59 14:59 Intake Total 690 / 1080 50 / 1130 180 / 180 Output Total 1800 / 1800 Balance -1110 / -720 50 / -670 180 / 180 Weight last 48 hrs Weight 93.304 kg Weight 96 kg Weight 96.933 kg Physical Exam Const: COMMON NORMALS: patient oriented x3 and alert GENERAL APPEARANCE: cooperative ORIENTATION/CONSCIOUSNESS: Yes awake HENMT: COMMON NORMALS: oropharynx normal Neck/C-Spine: COMMON NORMALS: no JVD Resp: COMMON NORMALS: normal respiratory effort and clear to auscultation bilaterally AUSCULTATION: clear to auscultation bilaterally Cardio: COMMON NORMALS: no JVD, regular rhythm, S1 normal heart sound present, S2 normal heart sound present and No murmurs present (Cardio) RHYTHM: regular rhythm HEART SOUNDS: S1 normal heart sound present and S2 normal heart sound present GI: COMMON NORMALS: Normal to inspection, nondistended, normoactive bowel sounds present, Soft to palpation and non-tender PALPATION: Yes Soft to palpation : OTHER: No erythema around PD catheter. Extremity: COMMON NORMALS: no joint enlargement and no pedal edema Neuro: COMMON NORMALS: patient oriented x3 and moves all extremities SENSORIUM/ORIENTATION: Yes alert Skin: NARRATIVE SKIN EXAM: Overall, 3 cm at least stage II pressure ulceration with necrotic border under medial left breast. No tunneling, no drainage. OTHER: Ichthyosis bilateral lower extremities. Maculopapular rash in the buttocks: Most likely herpetic lesion. Data 09/14/23 03:47 09/14/23 03:47 Micro: Microbiology 01/31/24 11:45 Blood Culture - Final Blood 09/07/23 11:40 Blood Culture - Final Blood 09/07/23 20:42 Anaerobic Culture - Preliminary Pericardial Fluid A&P Assessment and plan (1) Sepsis: Blood cultures from admission negative. Confirmed with microbiology lab. No more concerns for bacteremia. Repeat blood cultures sent on 09/11 so far negative as well. Patient has remained hemodynamically stable and afebrile. Peritoneal and pericardial fluid cultures so far negative. Mild cellulitis around PD catheter insertion site improving. Continue with empiric antibiotic coverage with IV vancomycin and Zosyn. If repeat blood cultures sent on 09/11 remain negative we will plan to discontinue antibiotics within next 48 hours. (2) CRF (chronic renal failure): Chronic renal failure on peritoneal dialysis. Patient admitted with uremic pericarditis with concerns for calciphylaxis and worsening renal functions. High concerns for peritoneal dialysis failure. Appreciate nephrology recommendations. Plan to transition over to hemodialysis for now. Will consult surgery for tunneled catheter placement. For now continue with peritoneal dialysis catheter. Remove right IJ central line. (3) Pericardial effusion: Most likely in setting of uremia. Pathology and blood cultures along with pericardial culture results appreciated. Appreciate echocardiogram results. Sheath removed. (4) Anemia: Most likely in setting of chronic kidney disease. Target hemoglobin more than 8. Post 1 unit blood transfusion. Check stool for occult blood. Patient already received transfusion so we cannot check iron panel. Check folate levels and vitamin B12 level. Monitor hemoglobin daily. Protonix 40 mg IV twice daily. (5) Hypotension: Present on admission. Most likely in setting of pericardial large effusion with concerns for tamponade. Shock resolved. Goal blood pressure less than 140/90 mmHg with mean over 65. Patient remains tachycardic. Restart metoprolol 25 mg twice daily. Qualifiers: Hypotension type: unspecified hypotension type Qualified Code(s): I95.9 - Hypotension, unspecified (6) Troponin level elevated: Most likely in setting of demand ischemia. Chest pain-free. Continue with aspirin, atorvastatin 40 mg daily.. Added beta-veronica as above. Heparin drip on hold given anemia requiring a blood transfusion. Appreciate A1c, lipid panel. (7) Dysphagia: Dysphagia diet. Tolerating so far. Reinforced aspiration precautions with her and visiting family. Appreciate speech therapy results. (8) Peritoneal dialysis status: As above. (9) Syncope and collapse: Likely secondary to hypotension, sepsis, additional cardiac evaluation as below. (10) Pressure ulcer: No abscess on ultrasound. Pressure injury? She seems to favor laying on the left side as per patient ever Since her past strokes. Possible calciphylaxis. Considerations are being made for more effective dialysis. Concern for failure of PD. Underneath left breast. Wound care requested. (11) Cardiomegaly: Pericardial effusion as above. (12) Diabetes mellitus with hyperglycemia, with long-term current use of insulin: Plan Goals of care discussion: She would want attempted resuscitation in case of cardiopulmonary arrest. Family are in the process of finalizing DPOA paperwork. Recent cellulitis around PD catheter. Resolved after completion of antibiotic course. History of DVT, status post IVC filter HLD: Unclear benefit of statin in patients with ESRD on dialysis. HTN: hold antihypertensives. DM2: Accu-Cheks. Sliding scale insulin. Other medical problems Analgesia: Tylenol as needed Glycemic control: Insulin low-dose protocol ACHS. Nutrition: Dysphagia level 5 diet, CODE STATUS: Full code. Goals of care discussion as above. PUD prophylaxis: Protonix twice daily DVT prophylaxis: SCD, heparin 5000 every 12 hourly Discharge planning: Discharge to SNF once medically ready. Will require outpatient dialysis. Continue with care at [facility]. This documentation was created by [employer] hairspring ii inspector software. Every effort was made to ensure accuracy of [employer] ii inspector. Any obvious errors or omissions should be clarified with the author of the document. Plan for the day: Follow-up with nephrology regarding further dialysis. Renal functions better today as compared to yesterday. Patient more awake and alert. No signs of infection. Blood cultures have remained negative. Will go ahead and stop IV antibiotics and monitor. Outpatient dialysis chair time being set up. Goal blood pressure less than 140/90 which would mean over 65. For now continue with metoprolol 25 mg twice daily. If needed will start patient on low-dose midodrine. Out of bed to chair. Physical therapy. Discharge plan: Patient has been accepted to SNF. Plan to discharge in next 24 hours after dialysis in a.m. tomorrow. Attestations Medical Necessity Statement*: Requires further hospitalization for initiation of hemodialysis in a patient who was admitted with uremic pericarditis with tamponade with concerns for PD membrane failure while outpatient dialysis is set up. Diagnoses Sepsis A41.9 CRF (chronic renal failure) N18.9 Pericardial effusion I31.39 Anemia D64.9 Hypotension I95.9 Hypotension type: unspecified hypotension type Troponin level elevated R79.89 Dysphagia R13.10 Peritoneal dialysis status Z99.2 Syncope and collapse R55 Pressure ulcer L89.90 Cardiomegaly I51.7 Diabetes mellitus with hyperglycemia, with long-term current use of insulin E11.65; Z79.4
[2023-09-14 11:56] LABS: Glucose Point of Care 80 mg/dL (70-110)
[2023-09-14] MEDS: acetaminophen 325 mg Tablet 650 MG PO (14:27)
[2023-09-14] MEDS: vancomycin 1,000 MG in sodium chloride 0.9% 250 ML 250 MG IV (14:28)
[2023-09-14 17:54] LABS: Glucose Point of Care 198 mg/dL (70-110)
[2023-09-14] MEDS: valACYclovir 1,000 mg Tablet 500 MG PO (18:20)
[2023-09-14 20:42] LABS: Glucose Point of Care 134 mg/dL (70-110)
[2023-09-15 04:00] VITALS: BP 151/47; PULSE 90; RESP 17; TEMP 36.2; O2SAT 100
[2023-09-15 04:36] LABS: Alanine Aminotransferase 18 U/L (0-33); Albumin Level 3.2 g/dL (3.5-5.2); Alkaline Phosphatase 61 U/L (35-105); Anion Gap 21.2 (5-19); Aspartate Amino Transferase 23 U/L (0-32); Blood Urea Nitrogen 43 mg/dL (8-23); Calcium 8.1 mg/dL (8.5-10.5); Carbon Dioxide 22 mmol/L (22-29); Chloride 95 mmol/L (98-107); Globulin 1.5 g/dL (1.3-4.6); Glomerular Filtration Rate 4.3 mL/min (90-130); Glucose 124 mg/dL (65-115); Osmolality Calculated 290 mOsm/kg (285-295); Phosphorus 3.3 mg/dL (2.5-4.5); Potassium 4.2 mmol/L (3.5-5.1); Sodium 134 mmol/L (136-145); Total Bilirubin 0.6 mg/dL (0.15-1.2); Total Protein 4.7 g/dL (6.6-8.7)
[2023-09-15] MEDS: pantoprazole 40 mg SDV IVP (05:37)
[2023-09-15 05:46] VITALS: PULSE 94
[2023-09-15 06:28] LABS: Glucose Point of Care 136 mg/dL (70-110)
[2023-09-15 06:46] LABS: Cyto Order Verification No Order
[2023-09-15 07:31] VITALS: BP 141/70; PULSE 90; RESP 13; TEMP 36.7; O2SAT 100
[2023-09-15 07:31] LABS: Glucose Point of Care 130 mg/dL (70-110)
--- NOTE | 2023-09-15 08:41 | P.DS_ITS ---
Discharge Providers 2 Date of Admission: 09/07/23 14:52 Date of Discharge: September 15, 2023 Attending Provider at Admission: Karsten Agrawal Attending Provider at Discharge: Mahendra Howe MD Consults: Cardiology: Dr. Rogers Surgery: Dr. Mane Hamilton Telemetry nephrology Diagnoses at Discharge Discharge Diagnosis (1) Sepsis: Status: Acute (2) CRF (chronic renal failure): Status: Acute (3) Pericardial effusion: Status: Acute (4) Anemia: Status: Acute (5) Hypotension: Status: Inactive Qualifiers: Hypotension type: unspecified hypotension type Qualified Code(s): I95.9 - Hypotension, unspecified (6) Troponin level elevated: Status: Acute (7) Dysphagia: Status: Acute (8) Peritoneal dialysis status: Status: Chronic (9) Syncope and collapse: Status: Acute (10) Pressure ulcer: Status: Acute (11) Cardiomegaly: Status: Acute (12) Diabetes mellitus with hyperglycemia, with long-term current use of insulin: Status: Chronic Reason for Visit 2 Reason for Visit: syncope Brief History: History as per HPI: Arianne Archer is a 62 year old female was brought in for evaluation after syncopal episode at home, in ER found to be hypotensive, blood pressure down to 71/40. She was recently prescribed a course of antibiotic due to redness around the peritoneal dialysis catheter and the redness has gone away. Family did not notice cloudiness of peritoneal fluid, although when discussing worsened renal parameters, elevated creatinine, BUN, acidosis, states that PD machine has not been working properly. She normally gets peritoneal dialysis for 11 hours a day via [facility]. In ER she is with sinus tachycardia, leukocytosis 12.37. Possible sepsis. Source unclear. Reported recently to have had possible pneumonia for which was given a course of Augmentin, although pneumonia was suspected to be more likely viral. On 09/05 was seen in the ER, at that time rapid COVID-19 and rapid flu antigens were negative. Chest x-ray was unremarkable. She is noted to have significant cardiomegaly. Family notes also recently she has been choking more. She does have some history of small strokes in the past and they were wondering if she may have had some additional small strokes in the last several days. She is coughing, coughing up some phlegm. Has been having difficulties with dysphagia. In ER she is additionally started on heparin drip with noted troponin elevation up to 131. Family stated additionally noticed last week a ulceration with necrotic border under left breast. Hospital Course Hospital Course Patient was admitted to the hospital for further evaluation and management of with concerns for sepsis, worsening renal failure in setting of CKD on peritoneal dialysis, elevated troponins with concerns for non-ST elevation TN. He was therefore started on broad-spectrum antibiotics and nephrology was consulted. Echocardiogram was done which was concerning for large pericardial effusion with concerns for early signs of tamponade. Cardiology was consulted and she underwent pericardiocentesis. Elevated troponins were thought to be in setting of demand ischemia from early tamponade. During hospitalization multiple blood cultures, fluid cultures have remained negative. There is a concern that patient's pericardial effusion is in setting of uremia in setting of peritoneal dialysis membrane failure. Care were discussed in detail with patient and patient's family at bedside and it was recommended for patient to transition over to hemodialysis. Family was agreeable. Surgery was consulted and she underwent tunneled catheter placement on 09/13 after she which she started receiving hemodialysis. Patient's mentation, hemodynamics have started improving after hemodialysis. During hospitalization she was also found to have a vesicular rash at the buttocks with concerns for herpetic lesions for which she was started on valacyclovir. Patient was found to be significantly deconditioned during hospitalization for which safe discharge planning was discussed in detail and she was agreeable for discharge to SNF. She has been discharged to SNF with setting of outpatient dialysis chair on Tuesday, Tuesday and Tuesday. Physical Exam 2 Const: COMMON NORMALS: patient oriented x3 and alert GENERAL APPEARANCE: c ooperative ORIENTATION/CONSCIOUSNESS: Yes awake HENMT: COMMON NORMALS: oropharynx normal Neck/C-Spine: COMMON NORMALS: no JVD Resp: COMMON NORMALS: normal respiratory effort and clear to auscultation bilaterally AUSCULTATION: clear to auscultation bilaterally Cardio: COMMON NORMALS: no JVD, regular rhythm, S1 normal heart sound present, S2 normal heart sound present and No murmurs present (Cardio) RHYTHM: regular rhythm HEART SOUNDS: S1 normal heart sound present and S2 normal heart sound present GI: COMMON NORMALS: Normal to inspection, nondistended, normoactive bowel sounds present, Soft to palpation and non-tender PALPATION: Yes Soft to palpation : OTHER: No erythema around PD catheter. Extremity: COMMON NORMALS: no joint enlargement and no pedal edema Neuro: COMMON NORMALS: patient oriented x3 and moves all extremities S ENSORIUM/ORIENTATION: Yes alert Skin: NARRATIVE SKIN EXAM: Overall, 3 cm at least stage II pressure ulceration with necrotic border under medial left breast. No tunneling, no drainage. OTHER: Ichthyosis bilateral lower extremities. Maculopapular rash in the buttocks: Most likely herpetic lesion. Discharge Data Studies Completed and Pending Completed Studies During Hospitalization Category Date Time Status CT head wo con* [id number] Routine Cat Scan 09/07/23 15:25 Completed FISHER REE[facility] NET request for service Routine Exams 09/07/23 20:06 Completed FL barium swallow modifd [id number] Routine Exams 09/09/23 Completed XR chest 1V portable [id number] Stat Exams 09/07/23 Completed XR chest 1V portable [id number] Stat Exams 09/07/23 10:13 Completed XR chest 1V portable [id number] Stat Exams 09/13/23 08:12 Completed Blood Cultures ([facility]) Routine Lab 09/07/23 11:40 Completed Blood Cultures ([facility]) Routine Lab 09/07/23 11:45 Completed Cytology [PTH] Routine Pth 09/07/23 20:51 Completed CV. echo complete* [id number] Routine Ultrasound 09/07/23 16:37 Completed CV. echo limited [id number] Stat Ultrasound 09/07/23 21:25 Completed US soft tissue and or extremity [US soft tissue/ Ultrasound 09/07/23 16:37 Completed extremity [id number]] Routine Pending at discharge Category Date Time Status Blood Culture Stat Lab 09/11/23 15:51 Results Mycobacteria, Culture w/Fluor Routine Lab 09/07/23 20:42 Results Peritoneal Fld Adenosine Deami Routine Lab 09/10/23 23:45 Received Urinalysis Stat Lab 09/07/23 11:27 Uncollected Radiology Impressions Head CT 09/07/23 15:25 IMPRESSION: No acute intracranial abnormality. Microbiology 09/07/23 20:42 Pericardial Fluid Anaerobic Culture - Final 09/07/23 11:45 Blood Blood Culture - Final 09/07/23 11:40 Blood Blood Culture - Final 09/11/23 15:51 Blood Blood Culture - Preliminary NEGATIVE TO DATE 09/11/23 15:56 Blood Blood Culture - Preliminary NEGATIVE TO DATE 09/09/23 03:14 Peritoneal Fluid Gram Stain - Final 09/09/23 03:14 Peritoneal Fluid Body Fluid Culture - Final 09/09/23 03:14 Peritoneal Fluid Body Fluid Culture - Final 09/07/23 20:42 Body Fluids - Pleura Mycobacterial Smear - Preliminary 09/07/23 20:42 Pericardial Fluid Gram Stain - Final 09/07/23 20:42 Pericardial Fluid Body Fluid Culture - Final Echocardiogram: CONCLUSIONS LV systolic function is normal with EF of 60-65% Grade 1 diastoluc dysfunction Early signs of cardiac tamponade. Minimal diastolic compression Trace tricuspid regurgitation Trace pulmonic regurgitation Large sized pericardial effusion Comparison studies are available. Jules Rogers MD (Electronically Signed) Final Date: 08 September 2023 Limited echocardiogram: CONCLUSIONS This is a limited echocardiogram performed to assess pericardial effusion post pericardiocentesis. Very minimal amount of pericardial effusion is seen. LV systolic function is normal. Compared to prior echocardiogram performed earlier today, pericardial effusion has significantly improved. Jules Rogers MD (Electronically Signed) Final Date: 08 September 2023 Laboratory Results WBC 9.95 10^3/uL (3.29-11.43) 09/14/23 03:47 RBC 2.76 10^6/uL (3.85-5.65) L 09/14/23 03:47 Hgb 8.90 g/dL (11.27-16.99) L 09/14/23 03:47 Hct 27.0 % (36-47) L 09/14/23 03:47 MCV 97.8 fl (85-98) 09/14/23 03:47 MCH 32.2 pg (27-33) 09/14/23 03:47 MCHC 33.0 g/dL (30-55) 09/14/23 03:47 RDW 20.7 % (12.1-15.1) H 09/14/23 03:47 Plt Count 96 10^3/cmm (157-399) L 09/14/23 03:47 MPV 10.8 fL (7.4-10.4) H 09/14/23 03:47 Neut % (Auto) 83.4 % 09/14/23 03:47 Lymph % (Auto) 8.4 % 09/14/23 03:47 Chaves % (Auto) 5.6 % 09/14/23 03:47 Eos % (Auto) 1.3 % 09/14/23 03:47 Baso % (Auto) 0.2 % 09/14/23 03:47 Neut # (Auto) 8.29 10^3/uL (1.8-7.7) H 09/14/23 03:47 Lymph # (Auto) 0.8 10^3/uL (0.8-4.8) 09/14/23 03:47 Chaves # (Auto) 0.6 10^3/uL (0.2-0.9) 09/14/23 03:47 Eos # (Auto) 0.1 10^3/uL (0.0-0.8) 09/14/23 03:47 Baso # (Auto) 0.0 10^3/uL (0.0-0.1) 09/14/23 03:47 Nucleated RBC % (auto) 0 % 09/14/23 03:47 Nucleated RBCs # 0.0 /100WBC 09/14/23 03:47 ESR 31 mm/hr (0-15) H 09/07/23 22:01 Specimen Type Arterial 09/07/23 19:44 Sample Site Brachial, right 09/07/23 19:44 ABG pH 7.49 (7.35-7.45) H 09/07/23 19:44 ABG pCO2 25.3 mmHg (35-45) L 09/07/23 19:44 ABG pO2 99.8 mmHg (80.0-100.0) 09/07/23 19:44 ABG PO2/FiO2 Ratio 0 09/07/23 13:48 ABG HCO3 19.0 mmol/L (22-26) L 09/07/23 19:44 ABG O2 Saturation 97.8 09/07/23 19:44 ABG Base Excess -3.3 mmol/L (-2.0-2.0) L 09/07/23 19:44 Teofilo Test N/a 09/07/23 19:44 A-a O2 Gradient 2.2 mmHg (5-10) L 09/07/23 19:44 Hematocrit 31.8 % (37-47) L 09/07/23 19:44 Hgb O2 Saturation 96.4 % (95-100) 09/07/23 19:44 Carboxyhemoglobin 1.0 %THgb (0.4-20.1) 09/07/23 19:44 Methemoglobin 0.4 % (0.4-1.5) 09/07/23 19:44 Total Hemoglobin 10.4 g/dL (12-16) L 09/07/23 19:44 Sodium 132.0 mmol/L (131-143) 09/07/23 19:44 Potassium 4.3 mmol/L (3.5-5.0) 09/07/23 19:44 Glucose 114.0 mg/dL (70-115) 09/07/23 19:44 Ionized Calcium 1.1 mmol/L (1.1-1.4) 09/07/23 19:44 O2 Delivery Device Nc 09/07/23 19:44 O2 Liters/Min 3.0 % 09/07/23 19:44 FiO2 21.0 % 09/07/23 13:48 Business Administration Instructor ID Yosef 09/07/23 19:44 Sodium 134 mmol/L (136-145) L 09/15/23 03:38 Potassium 4.2 mmol/L (3.5-5.1) 09/15/23 03:38 Chloride 95 mmol/L (98-107) L 09/15/23 03:38 Carbon Dioxide 22 mmol/L (22-29) 09/15/23 03:38 Anion Gap 21.2 (5-19) H 09/15/23 03:38 BUN 43 mg/dL (8-23) H 09/15/23 03:38 Creatinine 9.2 mg/dL (0.5-0.9) H* 09/15/23 03:38 GFR Calculation 4.3 mL/min (90-130) L 09/15/23 03:38 Glucose 124 mg/dL (65-115) H 09/15/23 03:38 POC Glucose 130 mg/dL (70-110) H 09/15/23 07:23 Estimat Average Glucose 146 09/13/23 03:15 Hemoglobin A1c 6.7 % (4.0-6.0) H 09/13/23 03:15 Calculated Osmolality 290 mOsm/kg (285-295) 09/15/23 03:38 Lactic Acid 2.7 mmol/L (0.5-2.2) H 09/07/23 10:48 Lactic Acid (Sepsis) 2.0 mmol/L (0.5-2.2) 09/07/23 14:00 Calcium 8.1 mg/dL (8.5-10.5) L 09/15/23 03:38 Phosphorus 3.3 mg/dL (2.5-4.5) 09/15/23 03:38 Magnesium 2.0 mg/dL (1.7-2.3) 09/15/23 03:38 Total Bilirubin 0.6 mg/dL (0.15-1.2) 09/15/23 03:38 AST 23 U/L (0-32) 09/15/23 03:38 ALT 18 U/L (0-33) 09/15/23 03:38 Alkaline Phosphatase 61 U/L (35-105) 09/15/23 03:38 Lactate Dehydrogenase 259 U/L (135-214) H 09/07/23 22:01 Troponin T Baseline 131 ng/L (0-10) H* 09/07/23 10:48 Troponin T 120 Minute 124.8 ng/L (0-10) H 09/07/23 13:15 Delta Troponin T -6.2 ABS# (0-10) L 09/07/23 13:15 Troponin T Hi Sens 6Hr 125.9 ng/L (0-10) H 09/07/23 18:18 Troponin T Hi Sens 6Hr Delta -5.1 ng/L (0-12) L 09/07/23 18:18 C-Reactive Protein 14.9 mg/L (0.0-4.9) H 09/07/23 22:01 Total Protein 4.7 g/dL (6.6-8.7) L 09/15/23 03:38 Albumin 3.2 g/dL (3.5-5.2) L 09/15/23 03:38 Globulin 1.5 g/dL (1.3-4.6) 09/15/23 03:38 Triglycerides 53 mg/dL (0-150) 09/13/23 03:15 Cholesterol 43 mg/dL (0-200) 09/13/23 03:15 LDL Cholesterol, Calc 17 mg/dL (50-129) L 09/13/23 03:15 Total VLDL Cholesterol 11 mg/dL (0-30) 09/13/23 03:15 HDL Cholesterol 15 mg/dL (60-100) L 09/13/23 03:15 Cholesterol/HDL Ratio 2.87 mg/dL (0.0-4.40) 09/13/23 03:15 Vitamin B12 1017 pg/mL (232-1245) 09/12/23 03:32 Folate > 20.0 ng/mL (4.8-37.3) 09/13/23 03:15 Procalcitonin 1.15 ng/mL (0-0.5) H 09/07/23 22:01 TSH 4.29 uIU/mL (0.27-4.20) H 09/12/23 03:32 Free T4 0.88 ng/dL (0.82-1.77) 09/13/23 03:15 Free T3 1.5 PG/ML (2.0-4.4) L 09/13/23 03:15 Fluid Albumin 2.3 g/dL 09/07/23 20:42 Pericard Color Yellow (Pale Yellow) 09/07/23 20:42 Pericard Appearance Clear (Clear) 09/07/23 20:42 Pericard pH 9.0 09/07/23 20:42 Pericard Spec [place] 1.010 09/07/23 20:42 Pericard WBC 116 /uL 09/07/23 20:42 Pericard RBC 0 10^3/uL 09/07/23 20:42 Pericar Polynuclear WBC 0.024 10^3/uL 09/07/23 20:42 Pericar Polynuc WBCs % 20.600 % 09/07/23 20:42 Peric Mononuc WBCs % 79.400 % 09/07/23 20:42 Peric Mononuc WBC #Auto 0.092 10^3/uL 09/07/23 20:42 Pericard Total Protein 3.9 g/dL 09/07/23 20:42 Pericardial LDH 126 U/L 09/07/23 20:42 Pericardial Glucose 144.0 mg/dL 09/07/23 20:42 Pericardial Amylase 3.0 U/L 09/07/23 20:42 Peritoneal Color Pale yellow (Pale Yellow) 09/09/23 03:14 Peritoneal Appearance Clear (Clear) 09/09/23 03:14 Peritoneal WBC 0 /uL 09/09/23 03:14 Peritoneal RBC 0 10^3/uL 09/09/23 03:14 Periton Mononu # Auto 0.057 10^3/uL 09/09/23 03:14 Mononuclear WBCs % 51.800 % 09/09/23 03:14 Polynuclear WBCs % 48.200 % 09/09/23 03:14 Perit Polynuc WBCs # 0.053 10^3/uL 09/09/23 03:14 Pleural Triglycerides 18 mg/dL 09/07/23 20:42 Random Vancomycin 22.5 ug/mL (20.0-40.0) 09/14/23 03:47 Serum Ketones Negative (Negative) 09/07/23 10:48 MARION IFA Animal Tis Res Negative (NEGATIVE) 09/07/23 22:01 ENMANUEL-1 Antibody <1.0 neg AI (<1.0 NEG) 09/07/23 22:01 SS-A Antibody <1.0 neg AI (<1.0 NEG) 09/07/23 22:01 SS-B Antibody <1.0 neg AI (<1.0 NEG) 09/07/23 22:01 Sm (New) Antibody <1.0 neg AI (<1.0 NEG) 09/07/23 22:01 SHED HAND Antibody <1.0 neg AI (<1.0 NEG) 09/07/23 22:01 Scl-70 Antibody <1.0 neg AI (<1.0 NEG) 09/07/23 22:01 Anti-ds DNA IgG (Crith) Negative (NEGATIVE) 09/07/23 22:01 Centromere B Antibody <1.0 neg AI (<1.0 NEG) 09/07/23 22:01 Thyroid Peroxidase Ab <1 IU/mL (<9) 09/07/23 22:01 Complement C3c 123 mg/dL (83-193) 09/07/23 22:01 Complement C4c 31 mg/dL (15-57) 09/07/23 22:01 CH50 Classical Pathway >60 U/mL (31-60) H 09/07/23 22:01 Hepatitis A IgM Ab Non-reactive (Nonreactive) 09/07/23 22:01 Hep Bs Antigen Non-reactive (Nonreactive) 09/13/23 03:15 Hep Bs Antibody < 3.5 (11.5-1000) L 09/13/23 03:15 Hep B Core IgM Ab Non-reactive (Nonreactive) 09/07/23 22:01 Hepatitis C Antibody Non-reactive (Nonreactive) 09/07/23 22:01 HIV 1&2 Ab & HIV 1 Ag Non-reactive (Non-Reactiv) 09/07/23 22:01 HIV 1&2 Antibody Non-reactive (Non-Reactiv) 09/07/23 22:01 TB (QFT) Gold In Tube Indeterminate (NEGATIVE) A 09/07/23 22:01 TB Test (QFT) Nil 0.02 IU/mL 09/07/23 22:01 TB Test (QFT) Mitogen 0.42 IU/mL 09/07/23 22:01 TB Test Mitogen - Nil 0.00 IU/mL 09/07/23 22:01 TB Test TB -Nil 0.00 IU/mL 09/07/23 22:01 Pathology Message Yes 09/07/23 20:42 Blood Type A Positive 09/12/23 04:29 Rho(D) Type Rh positive 09/12/23 04:29 Antibody Screen Negative 09/12/23 04:29 Crossmatch See Detail 09/12/23 04:29 Vitals Last Vital Signs Temp 98.0 F 09/15/23 07:31 Pulse 90 09/15/23 07:31 Resp 13 09/15/23 07:31 BP 141/70 09/15/23 07:31 Pulse Ox 100 09/15/23 07:31 O2 Del Method Room Air 09/13/23 15:42 O2 Flow Rate 3 09/07/23 22:15 Discharge Plan Discharge Patient Disposition: Xfer SNF Condition: Stable Prescriptions: New valacyclovir 1 gram Tablet 500 mg PO QPM Qty: 7 0RF metoprolol tartrate 25 mg Tablet 25 mg PO BID@0900,2100 Qty: 60 0RF Humalog U-100 Insulin 100 unit/mL cartridge See Protocol SUBCUT TID Qty: 15 0RF Protocol: Insulin Corrective High-Dose Regimen Condition: Fingerstick Blood Glucose Dose/Route: Insulin Units Condition: 141-180 mg/dl Dose/Route: 2 units/SQ Condition: 181-220 mg/dl Dose/Route: 4 units/SQ Condition: 221-260 mg/dl Dose/Route: 6 units/SQ Condition: 261-300 mg/dl Dose/Route: 8units/SQ Condition: 301-350 mg/dl Dose/Route: 10 units/SQ Condition: 351-400 mg/dl Dose/Route: 12 units/SQ Condition: greater than 400 mg/dl Dose/Route: 14 units/SQ Protocol Text: If Fingerstick Blood Glucose, then Insulin Units; If 141-180 mg/dl, then 2 units/SQ; If 181-220 mg/dl, then 4 units/SQ; If 221-260 mg/dl, then 6 units/SQ; If 261-300 mg/dl, then 8units/SQ; If 301-350 mg/dl, then 10 units/SQ; If 351-400 mg/dl, then 12 units/SQ; If greater than 400 mg/dl, then 14 units/SQ Rx Instructions: If Fingerstick Blood Glucose, then Insulin Units; If 141-180 mg/dl, then 2 units/SQ; If 181-220 mg/dl, then 4 units/SQ; If 221-260 mg/dl, then 6 units/SQ; If 261-300 mg/dl, then 8units/SQ; If 301-350 mg/dl, then 10 units/SQ; If 351-400 mg/dl, then 12 units/SQ; If greater than 400 mg/dl, then 14 units/SQ Continued RenaPlex-D 800 mcg-12.5 mg -2,000 unit tablet 1 tab PO DAILY (DME) FreeStyle Neo 3 Sensor Device See Rx Instructions .Route Qty: 6 0RF Rx Instructions: As directed atorvastatin 40 mg tablet 40 mg PO DAILY Qty: 30 5RF (DME) FreeStyle Neo 2 [place] Misc See Rx Instructions .Route Qty: 1 0RF Rx Instructions: As directed (DME) FreeStyle Neo 2 Sensor Kit See Rx Instructions .Route Qty: 2 0RF Rx Instructions: As directed (DME) wheelchair See Rx Instructions .Route .MEDSUPPLY Qty: 1 0RF Rx Instructions: As directed 99 months aspirin 81 mg Tablet,Delayed Release (Dr/Ec) 81 mg PO DAILY calcium carbonate 500 mg calcium (1,250 mg) Tablet 500 mg PO DAILY sevelamer carbonate 800 mg tablet 2,400 mg PO BID benzonatate 200 mg capsule 100 mg PO TID Qty: 30 0RF guaifenesin 1,200 mg tablet extended release 12hr 1,200 mg PO BID Qty: 14 0RF Discontinued glipizide 10 mg tablet extended release 24hr 10 mg PO DAILY metoprolol succinate 50 mg tablet extended release 24 hr 50 mg PO BID Qty: 60 5RF amlodipine 5 mg tablet 5 mg PO DAILY Levemir FlexPen 100 unit/mL (3 mL) insulin pen 40 unit SUBCUT DAILY Qty: 25 1RF potassium chloride 20 mEq tablet,ER particles/crystals 20 meq PO DAILY cephalexin 500 mg capsule 500 mg PO DAILY amoxicillin-pot clavulanate 875-125 mg tablet 1 tab PO BID Qty: 7 0RF Discharge Orders: Discharge Order (Routine); Ordered 09/15/23 Ordered By: Mahendra Howe Referrals: [facility] [Outside] Ynes Rodriguez FNP [Nurse Practitioner] - 09/28/23 1:00 pm Discharge Diet: As Directed Discharge Activity: Resume usual activity and Increase activity as tolerated Patient Instructions: Metoprolol (By mouth) (Lopressor, Toprol XL), Valacyclovir (By mouth) (Valtrex), Insulin Lispro (By injection) (Humalog, Humalog Pen, Lispro-PFC,..., Peritoneal Dialysis Catheter Care (DC), Coronary Angioplasty (DC), Opioid Safety, Post Anesthesia Care, Pain Management Activity Restrictions/Additional Instructions: Dysphagia level 5 renal dialysis diet. Multiple medication changes have been done. Do not take glipizide and your high dose of Levemir anymore. Instead take Humalog premeals as per sliding scale below. If Fingerstick Blood Glucose, then Insulin Units; If 141-180 mg/dl, then 2 units/SQ; If 181-220 mg/dl, then 4 units/SQ; If 221-260 mg/dl, then 6 units/SQ; If 261-300 mg/dl, then 8units/SQ; If 301-350 mg/dl, then 10 units/SQ; If 351-400 mg/dl, then 12 units/SQ; If greater than 400 mg/dl, then 14 units/SQ Do not take amiodarone anymore. Dose of metoprolol has been changed to 25 mg twice daily. Take Valtrex 500 mg daily for next 10 days. On the day of dialysis take Valtrex postdialysis. Discharge Attestations 2 Time Spent in Discharge Care*: greater than 30 min Specific Discharge Activities: educating patient, educating and/or supporting family/caregiver, discussing with pcp/other providers, discussing with case packer and sealer/social workers/dc planners, documenting/other paperwork and evaluating patient/reviewing data Status at Discharge: Cognitive status at discharge: cognitively intact , B ehavioral status at discharge: cooperative , Functional status at discharge: u ses cane/walker , Overall status at discharge: patient is progressing back to baseline Quality Metrics Clinical Quality Measures [ No reported AMI, CVA or VTE this stay] Coding Level of Care Code 45158 Total time (in minutes) for Discharge: 60 Diagnoses Sepsis A41.9 CRF (chronic renal failure) N18.9 Pericardial effusion I31.39 Anemia D64.9 Hypotension I95.9 Hypotension type: unspecified hypotension type Troponin level elevated R79.89 Dysphagia R13.10 Peritoneal dialysis status Z99.2 Syncope and collapse R55 Pressure ulcer L89.90 Cardiomegaly I51.7 Diabetes mellitus with hyperglycemia, with long-term current use of insulin E11.65; Z79.4
[2023-09-15] MEDS: metoprolol tartrate 25 mg Tablet PO (09:00)
[2023-09-15] MEDS: nystatin 100,000 unit/mL UDC 5 mL 400000 UNIT PO (09:05)
[2023-09-15] MEDS: calcium carbonate 500 mg Chew Tablet PO (09:05)
[2023-09-15] MEDS: aspirin 81 mg EC Tablet PO (09:05)
[2023-09-15] MEDS: sevelamer 800 mg Tablet 2400 MG PO (09:05)
[2023-09-15] MEDS: atorvastatin 40 mg Tablet PO (09:06)
[2023-09-15] MEDS: heparin, porcine 1,000 unit/mL INJ 10 mL 1000 UNIT IV (09:45)
[2023-09-15 09:55] LABS: SARS Covid-2 Antigen negative (Negative)
--- NOTE | 2023-09-15 12:45 | PC.NURSE ---
Attempted to call report to [facility] and placed on hold until it timed out and hung up.
[2023-09-15] MEDS: heparin, porcine 1,000 unit/mL INJ 10 mL 10000 UNIT INTRACATH (12:48)
--- NOTE | 2023-09-15 12:56 | PC.NURSE ---
2nd Attempted to call report to [facility] without success.
--- NOTE | 2023-09-15 13:25 | PC.NURSE ---
Called report to [facility] and gave to Daisy Bishop LPN
[2023-09-15 13:40] VITALS: BP 128/70; BP 147/78; PULSE 94; PULSE 98; RESP 20; TEMP 36.6
[2023-09-15 14:12] VITALS: BP 141/70; PULSE 90; RESP 13; TEMP 36.7; O2SAT 100
--- NOTE | 2023-09-15 15:22 | P.PN_ITS ---
Subjective 2 Subjective: getting HD Medications: Reviewed: Yes Vitals/I&O/Wt Last Vital Signs Temp 98.0 F 09/15/23 14:12 Pulse 90 09/15/23 14:12 Resp 13 09/15/23 14:12 BP 141/70 09/15/23 14:12 Pulse Ox 100 09/15/23 14:12 O2 Del Method Room Air 09/13/23 15:42 O2 Flow Rate 3 09/07/23 22:15 09/15/23 09/15/23 09/15/23 06:59 14:59 22:59 Output Total 0 / 0 150 / 150 Balance 0 / 910 -150 / -150 Weight last 48 hrs Weight 92.079 kg Weight 93.304 kg Weight 96 kg Physical Exam 2 Narrative: Patient is awake, alert, not in distress Data 09/14/23 03:47 09/15/23 03:38 Micro: Microbiology 09/07/23 20:42 Anaerobic Culture - Final Pericardial Fluid A&P Assessment and plan (1) Peritoneal dialysis status: Plan 1. End-stage renal disease: On peritoneal dialysis . Patient is hypotensive and was found to have large pericardial effusion with tamponade and plan for urgent pericardiocentesis -Patient off pressors and , will do 2 PD exchanges today with 1.5% solution Discussed with her PD nurse and also her food science technician-likely has PD membrane failure. Given that Patient is admitted now with uremic pericarditis with t amponade, will benefit from switching to hemodialysis. -Discussed with patient and she is agreeable, s/p tunneled catheter placement and s/p HD yesterday , next HD today -Continue to monitor labs and volume status 2. Pericardial effusion with tamponade, status post pericardiocentesis ,cardiology following 3. Hyponatremia: Mild, monitor 4. Anemia :s/p transfusion , s/p ANNA 5. Shock, improved, off pressors Patient evaluated using audiovisual cart. Time spent 20 minutes. Attestations 2 Medical Necessity Statement*: per lewis Coding Level of Care Code Acute Code for Chg Fwd Diagnoses Peritoneal dialysis status Z99.2
--- NOTE | 2023-09-15 16:36 | PC.NURSE ---
Discharge Note Patient discharged to SNF via EMS accompanied by EMS. Discharge instructions reviewed with patient and/or new accounts representative. Mobile pharmacy medications and/or prescriptions provided. Belongings/home medications returned.
[2023-09-18 21:05] LABS: Peritoneal Fld Adenosine Deami 0.9 U/L (<7.6)
== END 2023-09-15 16:37 | disposition skilled nursing facility (03) | DRG 871 ==
LOC: ER 14:36 → ICU 14:52 → CSU 09-10 18:04
PROVIDERS: Family Medicine; Hospitalist; Internal Medicine; Surgery; Admitting Provider Internal Medicine; Emergency Provider Family Medicine; Visit Provider Student in an Organized Health Care Education/Training Program
PROC: 0W9D30Z Drainage of Pericardial Cavity with Drainage Device, Percutaneous Approach (ICD-10-PCS; principal; 2023-09-07 20:30)
PROC: 5A1D70Z Performance of Urinary Filtration, Intermittent, Less than 6 Hours Per Day (ICD-10-PCS; principal; 2023-09-13 07:00)
DX: A41.9 Sepsis, unspecified organism (principal); N18.6 End stage renal disease; R65.21 Severe sepsis with septic shock; I31.39 Other pericardial effusion (noninflammatory); I31.4 Cardiac tamponade; E87.29 Other acidosis; I32 Pericarditis in diseases classified elsewhere; E87.1 Hypo-osmolality and hyponatremia; I12.0 Hypertensive chronic kidney disease with stage 5 chronic kidney disease or end stage renal disease; I24.89 Other forms of acute ischemic heart disease; L03.311 Cellulitis of abdominal wall; T85.611A Breakdown (mechanical) of intraperitoneal dialysis catheter, initial encounter; Z99.3 Dependence on wheelchair; Z91.81 History of falling; E11.65 Type 2 diabetes mellitus with hyperglycemia; E78.2 Mixed hyperlipidemia; Z79.4 Long term (current) use of insulin; Z86.718 Personal history of other venous thrombosis and embolism; Z86.73 Personal history of transient ischemic attack (TIA), and cerebral infarction without residual deficits; Z95.828 Presence of other vascular implants and grafts; Z87.891 Personal history of nicotine dependence; R13.10 Dysphagia, unspecified; I51.7 Cardiomegaly; D63.1 Anemia in chronic kidney disease; E11.22 Type 2 diabetes mellitus with diabetic chronic kidney disease; Z99.2 Dependence on renal dialysis; L89.892 Pressure ulcer of other site, stage 2; E83.59 Other disorders of calcium metabolism; B00.9 Herpesviral infection, unspecified; Y84.8 Other medical procedures as the cause of abnormal reaction of the patient, or of later complication, without mention of misadventure at the time of the procedure
CPT/HCPCS: 33016; 36415; 36416; 36556; 36592; 36600; 70450; 71045; 71046; 74230; 76000; 76882; 77001; 80048; 80051; 80053; 80061; 80074; 80202; 80503; 82009; 82042; 82150; 82330; 82607; 82746; 82805; 82945; 82962; 83036; 83605; 83615; 83735; 83986; 84100; 84145; 84157; 84311; 84315; 84439; 84443; 84478; 84481; 84484; 85018; 85025; 85049; 85651; 86140; 86160; 86162; 86235; 86255; 86376; 86480; 86706; 86850; 86900; 86920; 87015; 87040; 87070; 87075; 87116; 87205; 87206; 87340; 87426; 87801; 87804; 87806; 88112; 88305; 89050; 90935; 92526; 92610; 92611; 93005; 93306; 93308; 94640; 96365; 96366; 96367; 96372; 96375; 96376; 97110; 97162; 97530; 99152; 99153; 99284; 99291; 99292; C1729; C1769; C1887; C9113; J0885; J1644; J1815; J2250; J2405; J2543; J2704; J3010; J3370; J7030; J7040; J7050; P9016; P9046; P9047; Q3014; Q4081

== ENCOUNTER 2023-10-13 16:21 | Emergency (ER) | payer MEDICARE, MEDICAID, SELFPAY ==
[2023-10-13 16:27] VITALS: BP 132/77; PULSE 101; RESP 18; TEMP 36.6; O2SAT 94
--- NOTE | 2023-10-13 16:46 | ED_ITS ---
Documented by User: Abraham March DO 10/18/23 10:27 HPI - Skin/Abscess/Foreign Bdy 2 General: Chief complaint: Skin/Abscess/Foreign Body Stated complaint: possbile infected port per family Time Seen by Provider: 10/13/23 16:31 Source: patient Mode of arrival: EMS History of Present Illness: 62-year-old female who presents to the e mergency room with complaints of infection in the peritoneal dialysis port. She currently has a tunneled dialysis catheter in the right subclavian area she underwent hemodialysis today. The family states they are transitioning from peritoneal dialysis to hemodialysis. Patient denies any abdominal pain any fever sweats or chills and not currently using the peritoneal dialysis catheter. Patient was admitted last month at that time there was a concern about the PD cath being infected cultures however grew out negative according to the results on the chart. Associated symptoms: Deny arthralgias, chills, cough, fever(s), itching, myalgias, nausea, rigidity, short of breath or vomiting Treatments prior to arrival: none Review of Systems 2 Const: Denies: fever(s) or chills Card: Denies: chest pain Resp: Denies: dyspnea GI: Denies: abdominal pain, nausea or vomiting : Denies: dysuria, urinary frequency or urinary urgency Musc: Denies: neck pain or back pain Skin/Breast: Denies: rash PFSH ED 2 PFSH: Medical History Hyperlipidemia, mixed Essential hypertension Environmental and seasonal allergies Diabetes mellitus with hyperglycemia, with long-term current use of insulin Peritoneal dialysis status Dyslipidemia CRF (chronic renal failure) DVT (deep venous thrombosis) Surgical History Status post colonoscopy (12/11/20) polyp, diverticulosis, internal hemorrhoids Peritoneal dialysis catheter in situ History of parathyroid surgery S/P IVC filter Hx of hysterectomy Family History Father Cancer Denies family history of Anesthesia complication Bleeding disorder Social History Smoking and tobacco/nicotine status: former use of tobacco/nicotine Second hand smoke exposure: No Alcohol intake: never Substance/Drug Use: never Adopted: No Caregiver/support person: No Lives independently: Yes Household members: none Housing: House Marital status: Number of children: 3 Highest education level completed: Some College, No Degree service: No Current occupational status: disabled Physical Exam 2 Const: GENERAL APPEARANCE: cooperative and comfortable O RIENTATION/CONSCIOUSNESS: Yes awake HENMT: COMMON NORMALS: normocephalic, atraumatic and hearing grossly normal bilaterally HEAD & SCALP: normocephalic and atraumatic Resp: COMMON NORMALS: normal respiratory effort, No retractions, No use of accessory muscles and clear to auscultation bilaterally AUSCULTATION: clear to auscultation bilaterally Cardio: COMMON NORMALS: regular rate, regular rhythm and No murmurs present (Cardio) RATE: regular rate RHYTHM: regular rhythm GI: COMMON NORMALS: Soft to palpation and No hepatosplenomegaly present A USCULTATION: Yes normoactive bowel sounds PALPATION: Yes Soft to palpation, No Tenderness to palpation present (GI), No Guarding due to palpation present (GI) and Yes No hepatosplenomegaly present OTHER: Examination of the PD entrance site there is no redness inflammation or purulence. Extremity: COMMON NORMALS: normal to inspection, capillary refill normal, no clubbing, cyanosis or edema, no calf tenderness and no pedal edema Skin: COMMON NORMALS: no rashes or lesions noted GENERAL SKIN EXAM: no rashes or lesions noted Course 2 Vital Signs: Vital signs: Vital Signs Temperature 97.8 F 10/13/23 16:27 Pulse Rate 114 H 10/13/23 21:11 Respiratory Rate 25 H 10/13/23 21:11 Blood Pressure 91/74 10/13/23 20:14 Pulse Oximetry 92 10/13/23 18:01 Oxygen Delivery Me thod Room Air 10/13/23 16:27 MDM - Skin/Abscess/Foreign Bdy Medicial Decision Making Consulted Dr. Coelho. Patient Meliton came and remove the peritoneal dialysis catheter the tip was cultured. Patient will be discharged home. No sign of infection at this time. Prior to removing the catheter we contacted the dialysis nurse clinic where she usually is cared for they are indeed stopping peritoneal dialysis and gave the okay to have the catheter removed she had a scheduled consultation with general surgery upcoming in the clinic. Nursing needed official discharge. I went in and talk to the patient's caregiver and reviewed the chart. It appears we removed her peritoneal dialysis catheter and will be discharging her home. Lab work was unremarkable other than a mildly elevated potassium at 5.4, elevated C-reactive protein at 32.8, sed rate of 61, she will be discharged back to the facility. Medical Records I reviewed the patient's medical records. Lab Data I reviewed the patient's lab results. 10/13/23 16:52 10/13/23 16:52 Laboratory Results WBC 10.90 10^3/uL (3.29-11.43) 10/13/23 16:52 RBC 3.33 10^6/uL (3.85-5.65) L 10/13/23 16:52 Hgb 10.70 g/dL (11.27-16.99) L 10/13/23 16:52 Hct 34.0 % (36-47) L 10/13/23 16:52 MCV 102.1 fl (85-98) H 10/13/23 16:52 MCH 32.1 pg (27-33) 10/13/23 16:52 MCHC 31.5 g/dL (30-55) 10/13/23 16:52 RDW 17.2 % (12.1-15.1) H 10/13/23 16:52 Plt Count 286 10^3/cmm (157-399) 10/13/23 16:52 MPV 10.1 fL (7.4-10.4) 10/13/23 16:52 Neut % (Auto) 74.7 % 10/13/23 16:52 Lymph % (Auto) 17.1 % 10/13/23 16:52 [place] % (Auto) 5.6 % 10/13/23 16:52 Eos % (Auto) 1.2 % 10/13/23 16:52 Baso % (Auto) 0.4 % 10/13/23 16:52 Neut # (Auto) 8.15 10^3/uL (1.8-7.7) H 10/13/23 16:52 Lymph # (Auto) 1.9 10^3/uL (0.8-4.8) 10/13/23 16:52 [place] # (Auto) 0.6 10^3/uL (0.2-0.9) 10/13/23 16:52 Eos # (Auto) 0.1 10^3/uL (0.0-0.8) 10/13/23 16:52 Baso # (Auto) 0.0 10^3/uL (0.0-0.1) 10/13/23 16:52 Nucleated RBC % (auto) 0 % 10/13/23 16:52 Nucleated RBCs # 0.0 /100WBC 10/13/23 16:52 ESR 61 mm/hr (0-15) H 10/13/23 16:52 Sodium 141 mmol/L (136-145) 10/13/23 16:52 Potassium 5.4 mmol/L (3.5-5.1) H 10/13/23 16:52 Chloride 99 mmol/L (98-107) 10/13/23 16:52 Carbon Dioxide 34 mmol/L (22-29) H 10/13/23 16:52 Anion Gap 13.4 (5-19) 10/13/23 16:52 BUN 16 mg/dL (8-23) 10/13/23 16:52 Creatinine 3.9 mg/dL (0.5-0.9) H 10/13/23 16:52 GFR Calculation 11.6 mL/min (90-130) L 10/13/23 16:52 Glucose 111 mg/dL (65-115) 10/13/23 16:52 Calculated Osmolality 294 mOsm/kg (285-295) 10/13/23 16:52 Lactic Acid 1.2 mmol/L (0.5-2.2) 10/13/23 16:52 Calcium 8.7 mg/dL (8.5-10.5) 10/13/23 16:52 Magnesium 2.2 mg/dL (1.7-2.3) 10/13/23 16:52 Total Bilirubin 0.3 mg/dL (0.15-1.2) 10/13/23 16:52 AST 37 U/L (0-32) H 10/13/23 16:52 ALT 22 U/L (0-33) 10/13/23 16:52 Alkaline Phosphatase 175 U/L (35-105) H 10/13/23 16:52 C-Reactive Protein 32.8 mg/L (0.0-4.9) H 10/13/23 16:52 Total Protein 6.2 g/dL (6.6-8.7) L 10/13/23 16:52 Albumin 3.0 g/dL (3.5-5.2) L 10/13/23 16:52 Globulin 3.2 g/dL (1.3-4.6) 10/13/23 16:52 Lipase 39 U/L (13-60) 10/13/23 16:52 Discharge Plan Discharge Patient Disposition: Home Clinical Impression: Peritoneal dialysis status, Acute hyperkalemia Condition: Stable Prescriptions: No Action RenaPlex-D 800 mcg-12.5 mg -2,000 unit tablet 1 tab PO DAILY (DME) FreeStyle Neo 3 Sensor Device See Rx Instructions .Route Qty: 6 0RF Rx Instructions: As directed atorvastatin 40 mg tablet 40 mg PO DAILY Qty: 30 5RF (DME) FreeStyle Neo 2 [place] Misc See Rx Instructions .Route Qty: 1 0RF Rx Instructions: As directed (DME) FreeStyle Neo 2 Sensor Kit See Rx Instructions .Route Qty: 2 0RF Rx Instructions: As directed (DME) wheelchair See Rx Instructions .Route .MEDSUPPLY Qty: 1 0RF Rx Instructions: As directed 99 months valacyclovir 1 gram Tablet 500 mg PO QPM Qty: 7 0RF metoprolol tartrate 25 mg Tablet 25 mg PO BID@0900,2100 Qty: 60 0RF Humalog U-100 Insulin 100 unit/mL cartridge See Protocol SUBCUT TID Qty: 15 0RF Protocol: Insulin Corrective High-Dose Regimen Condition: Fingerstick Blood Glucose Dose/Route: Insulin Units Condition: 141-180 mg/dl Dose/Route: 2 units/SQ Condition: 181-220 mg/dl Dose/Route: 4 units/SQ Condition: 221-260 mg/dl Dose/Route: 6 units/SQ Condition: 261-300 mg/dl Dose/Route: 8units/SQ Condition: 301-350 mg/dl Dose/Route: 10 units/SQ Condition: 351-400 mg/dl Dose/Route: 12 units/SQ Condition: greater than 400 mg/dl Dose/Route: 14 units/SQ Protocol Text: If Fingerstick Blood Glucose, then Insulin Units; If 141-180 mg/dl, then 2 units/SQ; If 181-220 mg/dl, then 4 units/SQ; If 221-260 mg/dl, then 6 units/SQ; If 261-300 mg/dl, then 8units/SQ; If 301-350 mg/dl, then 10 units/SQ; If 351-400 mg/dl, then 12 units/SQ; If greater than 400 mg/dl, then 14 units/SQ Rx Instructions: If Fingerstick Blood Glucose, then Insulin Units; If 141-180 mg/dl, then 2 units/SQ; If 181-220 mg/dl, then 4 units/SQ; If 221-260 mg/dl, then 6 units/SQ; If 261-300 mg/dl, then 8units/SQ; If 301-350 mg/dl, then 10 units/SQ; If 351-400 mg/dl, then 12 units/SQ; If greater than 400 mg/dl, then 14 units/SQ aspirin 81 mg Tablet,Delayed Release (Dr/Ec) 81 mg PO DAILY calcium carbonate 500 mg calcium (1,250 mg) Tablet 500 mg PO DAILY sevelamer carbonate 800 mg tablet 2,400 mg PO BID benzonatate 200 mg capsule 100 mg PO TID Qty: 30 0RF guaifenesin 1,200 mg tablet extended release 12hr 1,200 mg PO BID Qty: 14 0RF Discharge Orders: Discharge ED (Routine); Ordered 10/13/23 Ordered By: Jeremy Scott Patient Instructions: Hyperkalemia (ED) Activity Restrictions/Additional Instructions: Your peritoneal dialysis port was removed in ER without complications. Your lab work showed your potassium mildly elevated 5.4. Please continue with your dialysis please follow-up with your family practice doctor or spindle repairer within next 7 days for further evaluation and treatment. Coding Level of Care Code ED Reporter for Chg Fwd Documented by User: Jeremy Scott DO 10/14/23 01:11 HPI - Skin/Abscess/Foreign Bdy 2 General: Chief complaint: Skin/Abscess/Foreign Body Stated complaint: possbile infected port per family Time Seen by Provider: 10/13/23 16:31 PFSH ED 2 PFSH: Medical History Hyperlipidemia, mixed Essential hypertension Environmental and seasonal allergies Diabetes mellitus with hyperglycemia, with long-term current use of insulin Peritoneal dialysis status Dyslipidemia CRF (chronic renal failure) DVT (deep venous thrombosis) Surgical History Status post colonoscopy (12/11/20) polyp, diverticulosis, internal hemorrhoids Peritoneal dialysis catheter in situ History of parathyroid surgery S/P IVC filter Hx of hysterectomy Family History Father Cancer Denies family history of Anesthesia complication Bleeding disorder Social History Smoking and tobacco/nicotine status: former use of tobacco/nicotine Second hand smoke exposure: No Alcohol intake: never Substance/Drug Use: never Adopted: No Caregiver/support person: No Lives independently: Yes Household members: none Housing: House Marital status: Number of children: 3 Highest education level completed: Some College, No Degree service: No Current occupational status: disabled Course 2 Vital Signs: Vital signs: Vital Signs Temperature 97.8 F 10/13/23 16:27 Pulse Rate 114 H 10/13/23 21:11 Respiratory Rate 25 H 10/13/23 21:11 Blood Pressure 91/74 10/13/23 20:14 Pulse Oximetry 92 10/13/23 18:01 Oxygen Delivery Me thod Room Air 10/13/23 16:27 MDM - Skin/Abscess/Foreign Bdy Medicial Decision Making Nursing needed official discharge. I went in and talk to the patient's caregiver and reviewed the chart. It appears we removed her peritoneal dialysis catheter and will be discharging her home. Lab work was unremarkable other than a mildly elevated potassium at 5.4, elevated C-reactive protein at 32.8, sed rate of 61, she will be discharged back to the facility. Lab Data 10/13/23 16:52 10/13/23 16:52 Laboratory Results WBC 10.90 10^3/uL (3.29-11.43) 10/13/23 16:52 RBC 3.33 10^6/uL (3.85-5.65) L 10/13/23 16:52 Hgb 10.70 g/dL (11.27-16.99) L 10/13/23 16:52 Hct 34.0 % (36-47) L 10/13/23 16:52 MCV 102.1 fl (85-98) H 10/13/23 16:52 MCH 32.1 pg (27-33) 10/13/23 16:52 MCHC 31.5 g/dL (30-55) 10/13/23 16:52 RDW 17.2 % (12.1-15.1) H 10/13/23 16:52 Plt Count 286 10^3/cmm (157-399) 10/13/23 16:52 MPV 10.1 fL (7.4-10.4) 10/13/23 16:52 Neut % (Auto) 74.7 % 10/13/23 16:52 Lymph % (Auto) 17.1 % 10/13/23 16:52 [place] % (Auto) 5.6 % 10/13/23 16:52 Eos % (Auto) 1.2 % 10/13/23 16:52 Baso % (Auto) 0.4 % 10/13/23 16:52 Neut # (Auto) 8.15 10^3/uL (1.8-7.7) H 10/13/23 16:52 Lymph # (Auto) 1.9 10^3/uL (0.8-4.8) 10/13/23 16:52 [place] # (Auto) 0.6 10^3/uL (0.2-0.9) 10/13/23 16:52 Eos # (Auto) 0.1 10^3/uL (0.0-0.8) 10/13/23 16:52 Baso # (Auto) 0.0 10^3/uL (0.0-0.1) 10/13/23 16:52 Nucleated RBC % (auto) 0 % 10/13/23 16:52 Nucleated RBCs # 0.0 /100WBC 10/13/23 16:52 ESR 61 mm/hr (0-15) H 10/13/23 16:52 Sodium 141 mmol/L (136-145) 10/13/23 16:52 Potassium 5.4 mmol/L (3.5-5.1) H 10/13/23 16:52 Chloride 99 mmol/L (98-107) 10/13/23 16:52 Carbon Dioxide 34 mmol/L (22-29) H 10/13/23 16:52 Anion Gap 13.4 (5-19) 10/13/23 16:52 BUN 16 mg/dL (8-23) 10/13/23 16:52 Creatinine 3.9 mg/dL (0.5-0.9) H 10/13/23 16:52 GFR Calculation 11.6 mL/min (90-130) L 10/13/23 16:52 Glucose 111 mg/dL (65-115) 10/13/23 16:52 Calculated Osmolality 294 mOsm/kg (285-295) 10/13/23 16:52 Lactic Acid 1.2 mmol/L (0.5-2.2) 10/13/23 16:52 Calcium 8.7 mg/dL (8.5-10.5) 10/13/23 16:52 Magnesium 2.2 mg/dL (1.7-2.3) 10/13/23 16:52 Total Bilirubin 0.3 mg/dL (0.15-1.2) 10/13/23 16:52 AST 37 U/L (0-32) H 10/13/23 16:52 ALT 22 U/L (0-33) 10/13/23 16:52 Alkaline Phosphatase 175 U/L (35-105) H 10/13/23 16:52 C-Reactive Protein 32.8 mg/L (0.0-4.9) H 10/13/23 16:52 Total Protein 6.2 g/dL (6.6-8.7) L 10/13/23 16:52 Albumin 3.0 g/dL (3.5-5.2) L 10/13/23 16:52 Globulin 3.2 g/dL (1.3-4.6) 10/13/23 16:52 Lipase 39 U/L (13-60) 10/13/23 16:52 No radiology studies performed this visit Discharge Plan Discharge Patient Disposition: Home Clinical Impression: Peritoneal dialysis status, Acute hyperkalemia Condition: Stable Prescriptions: No Action RenaPlex-D 800 mcg-12.5 mg -2,000 unit tablet 1 tab PO DAILY (DME) FreeStyle Neo 3 Sensor Device See Rx Instructions .Route Qty: 6 0RF Rx Instructions: As directed atorvastatin 40 mg tablet 40 mg PO DAILY Qty: 30 5RF (DME) FreeStyle Neo 2 [place] Misc See Rx Instructions .Route Qty: 1 0RF Rx Instructions: As directed (DME) FreeStyle Neo 2 Sensor Kit See Rx Instructions .Route Qty: 2 0RF Rx Instructions: As directed (DME) wheelchair See Rx Instructions .Route .MEDSUPPLY Qty: 1 0RF Rx Instructions: As directed 99 months valacyclovir 1 gram Tablet 500 mg PO QPM Qty: 7 0RF metoprolol tartrate 25 mg Tablet 25 mg PO BID@0900,2100 Qty: 60 0RF Humalog U-100 Insulin 100 unit/mL cartridge See Protocol SUBCUT TID Qty: 15 0RF Protocol: Insulin Corrective High-Dose Regimen Condition: Fingerstick Blood Glucose Dose/Route: Insulin Units Condition: 141-180 mg/dl Dose/Route: 2 units/SQ Condition: 181-220 mg/dl Dose/Route: 4 units/SQ Condition: 221-260 mg/dl Dose/Route: 6 units/SQ Condition: 261-300 mg/dl Dose/Route: 8units/SQ Condition: 301-350 mg/dl Dose/Route: 10 units/SQ Condition: 351-400 mg/dl Dose/Route: 12 units/SQ Condition: greater than 400 mg/dl Dose/Route: 14 units/SQ Protocol Text: If Fingerstick Blood Glucose, then Insulin Units; If 141-180 mg/dl, then 2 units/SQ; If 181-220 mg/dl, then 4 units/SQ; If 221-260 mg/dl, then 6 units/SQ; If 261-300 mg/dl, then 8units/SQ; If 301-350 mg/dl, then 10 units/SQ; If 351-400 mg/dl, then 12 units/SQ; If greater than 400 mg/dl, then 14 units/SQ Rx Instructions: If Fingerstick Blood Glucose, then Insulin Units; If 141-180 mg/dl, then 2 units/SQ; If 181-220 mg/dl, then 4 units/SQ; If 221-260 mg/dl, then 6 units/SQ; If 261-300 mg/dl, then 8units/SQ; If 301-350 mg/dl, then 10 units/SQ; If 351-400 mg/dl, then 12 units/SQ; If greater than 400 mg/dl, then 14 units/SQ aspirin 81 mg Tablet,Delayed Release (Dr/Ec) 81 mg PO DAILY calcium carbonate 500 mg calcium (1,250 mg) Tablet 500 mg PO DAILY sevelamer carbonate 800 mg tablet 2,400 mg PO BID benzonatate 200 mg capsule 100 mg PO TID Qty: 30 0RF guaifenesin 1,200 mg tablet extended release 12hr 1,200 mg PO BID Qty: 14 0RF Discharge Orders: Discharge ED (Routine); Ordered 10/13/23 Ordered By: Jeremy Scott Patient Instructions: Hyperkalemia (ED) Activity Restrictions/Additional Instructions: Your peritoneal dialysis port was removed in ER without complications. Your lab work showed your potassium mildly elevated 5.4. Please continue with your dialysis please follow-up with your family practice doctor or spindle repairer within next 7 days for further evaluation and treatment. Coding Level of Care Code ED Reporter for Rosa Maria Oliva
[2023-10-13 17:24] LABS: Basophils % 0.4 %; Eosinophils # 0.1 10^3/uL (0.0-0.8); Eosinophils % 1.2 %; Lymphocytes # 1.9 10^3/uL (0.8-4.8); Lymphocytes % 17.1 %; Mean Corpuscular HGB Conc 31.5 g/dL (30-55); Mean Corpuscular Hemoglobin 32.1 pg (27-33); Mean Corpuscular Volume 102.1 fl (85-98); Mean Platelet Volume 10.1 fL (7.4-10.4); Monocytes # 0.6 10^3/uL (0.2-0.9); Monocytes % 5.6 %; Neutrophils # 8.15 10^3/uL (1.8-7.7); Neutrophils % 74.7 %; Nucleated Red Blood Cells % 0 %; Platelet Count 286 10^3/cmm (157-399); Red Blood Count 3.33 10^6/uL (3.85-5.65); Red Cell Distribution Width 17.2 % (12.1-15.1)
[2023-10-13 17:32] LABS: Alanine Aminotransferase 22 U/L (0-33); Alkaline Phosphatase 175 U/L (35-105); Anion Gap 13.4 (5-19); Aspartate Amino Transferase 37 U/L (0-32); Blood Urea Nitrogen 16 mg/dL (8-23); C Reactive Protein 32.8 mg/L (0.0-4.9); Calcium 8.7 mg/dL (8.5-10.5); Carbon Dioxide 34 mmol/L (22-29); Chloride 99 mmol/L (98-107); Globulin 3.2 g/dL (1.3-4.6); Glomerular Filtration Rate 11.6 mL/min (90-130); Glucose 111 mg/dL (65-115); Lipase 39 U/L (13-60); Magnesium 2.2 mg/dL (1.7-2.3); Osmolality Calculated 294 mOsm/kg (285-295); Potassium 5.4 mmol/L (3.5-5.1); Sodium 141 mmol/L (136-145); Total Bilirubin 0.3 mg/dL (0.15-1.2); Total Protein 6.2 g/dL (6.6-8.7)
[2023-10-13 17:33] LABS: Lactic Sepsis W/Reflex 1.2 mmol/L (0.5-2.2)
[2023-10-13 18:01] VITALS: BP 128/52; PULSE 108; RESP 21; O2SAT 92
--- NOTE | 2023-10-13 18:02 | PC.NURSE ---
see time-out charting, procedure of peritoneal dialysis catheter removal started at 1731 ended approx 1738. informed consent signed and in chart.
[2023-10-13 18:03] LABS: Erythrocyte Sedimentation Rate 61 mm/hr (0-15)
[2023-10-13 20:14] VITALS: BP 91/74; PULSE 109; RESP 15
[2023-10-13 21:11] VITALS: PULSE 114; RESP 25
--- NOTE | 2023-10-19 19:18 | PC.NURSE ---
info called and faxed to Gerardo at [facility]
== END 2023-10-13 22:25 | disposition home or self-care (01) ==
PROVIDERS: Emergency Provider Family Medicine
DX: E87.5 Hyperkalemia (principal); Z99.2 Dependence on renal dialysis; Z79.82 Long term (current) use of aspirin; Z79.4 Long term (current) use of insulin; Z87.891 Personal history of nicotine dependence; E78.2 Mixed hyperlipidemia; E78.5 Hyperlipidemia, unspecified; E11.22 Type 2 diabetes mellitus with diabetic chronic kidney disease; I12.9 Hypertensive chronic kidney disease with stage 1 through stage 4 chronic kidney disease, or unspecified chronic kidney disease; N18.9 Chronic kidney disease, unspecified
CPT/HCPCS: 36415; 80053; 83605; 83690; 83735; 85025; 85651; 86140; 87040; 87070; 87075; 87077; 87186; 87205; 99283

== ENCOUNTER → 2023-11-09 12:49 | Outpatient (BNVA) | payer MEDICARE, MEDICAID, SELFPAY | PROVIDERS: Visit Provider Nurse Practitioner Family | DX: I31.39 Other pericardial effusion (noninflammatory) (principal); I10 Essential (primary) hypertension; Z87.891 Personal history of nicotine dependence | CPT/HCPCS: 99214 ==

== ENCOUNTER 2023-11-16 06:47 | Outpatient (CLI) | payer MEDICARE, MEDICAID, SELFPAY ==
--- NOTE | 2023-11-16 07:15 | USCV_ITS ---
Arianne Archer Age: 62 Gender: F : 1960 Exam Date: 11/16/2023 07:20 Ordering Phys: Ynes Rodriguez Technologist: Exam Location: [facility] [place] Indication: pericardial eff BP: 150 / 83 HR: 100 Rhythm: Sinus Technical Quality: Adequate MEASUREMENTS (Male / Female) Normal Values 2D ECHO LV Diastolic Diameter PLAX 3.6 cm 4.2 - 5.9 / 3.9 - 5.3 cm IVS Diastolic Thickness 1.2 cm 0.6 - 1.0 / 0.6 - 0.9 cm IVS Systolic Thickness 1.2 cm LVPW Diastolic Thickness 1.3 cm 0.6 - 1.0 / 0.6 - 0.9 cm LVPW Systolic Thickness 1.6 cm LVOT Diameter 1.7 cm LV Ejection Fraction 2D Teich 56.3 % LV Ejection Fraction MOD 2C 77.0 % LV Ejection Fraction 2C AL 78.7 % LA Diameter 2.8 cm RA Systolic Volume 4C AL 18.2 ml RA Systolic Volume 4C MOD 18.0 ml LA Sys Volume AL 56.5 cm cubed Aorta at Sinotubular Diameter 1.8 cm M-MODE LA Ao Ratio MM 1.6 AV Cusp Separation MM 2.0 cm DOPPLER AV Peak Velocity 119.0 cm/s LVOT Peak Velocity 90.0 cm/s AV Area Cont Eq vti 1.9 cm squared AV Area Cont Eq pk 1.8 cm squared MV Peak Velocity 70.0 cm/s MV Area PHT 8.2 cm squared Mitral E to A Ratio 0.7 TR Peak Velocity 158.0 cm/s TR Peak Gradient 10.0 mmHg TV Peak E Velocity 86.0 cm/s Right Atrial Pressure 3.0 mmHg Pulmonary Artery Systolic Pressu 13.0 mmHg PV Peak Velocity 79.0 cm/s FINDINGS Left Ventricle Left ventricle is normal in size. LV systolic function is normal with EF of 55 to 60%. No regional wall motion abnormalities are seen. Grade 1 diastolic dysfunction. Right Ventricle Normal in size and function Right Atrium Normal in size Left Atrium Dilated Mitral Valve Grossly normal. Mild mitral regurgitation. Aortic Valve Structurally normal. No significant stenosis or regurgitation. Tricuspid Valve Insufficient TR jet to evaluate RVSP. Pulmonic Valve Not well-visualized Pericardium Medium to large sized pericardial effusion is seen. No signs of pericardial tamponade. Aorta Normal in size IVC Not well visualized. CONCLUSIONS LV systolic function is normal with EF of 55 to 60%. Grade 1 diastolic dysfunction. Left atrial dilation Mild mitral regurgitation. Medium to size large sized pericardial effusion is seen. No signs of pericardial tamponade. Compared to the echocardiogram from 09/07/2023, there is accumulation of significant amount of pericardial effusion. No signs of tamponade. Jules Rogers MD (Electronically Signed) Final Date: 19 November 2023 21:55 S
== END 2023-11-16 06:48 | disposition home or self-care (01) ==
LOC: RAD 06:47
PROVIDERS: Visit Provider Nurse Practitioner Family
DX: I10 Essential (primary) hypertension (principal); I31.39 Other pericardial effusion (noninflammatory); I34.0 Nonrheumatic mitral (valve) insufficiency
CPT/HCPCS: 93306

== ENCOUNTER → 2023-11-23 08:01 | Outpatient (BNVA) | payer MEDICARE, MEDICAID, SELFPAY | PROVIDERS: Visit Provider Internal Medicine | DX: E11.65 Type 2 diabetes mellitus with hyperglycemia (principal); Z79.4 Long term (current) use of insulin; R79.89 Other specified abnormal findings of blood chemistry; E03.8 Other specified hypothyroidism; J38.01 Paralysis of vocal cords and larynx, unilateral; K22.4 Dyskinesia of esophagus; R13.14 Dysphagia, pharyngoesophageal phase | CPT/HCPCS: 31575; 99204; 99205; 99214 ==

== ENCOUNTER → 2023-11-28 07:40 | Outpatient (BNVA) | payer MEDICARE, MEDICAID, SELFPAY | PROVIDERS: Visit Provider Thoracic Surgery (Cardiothoracic Vascular Surgery) | DX: I31.39 Other pericardial effusion (noninflammatory) (principal) | CPT/HCPCS: 99203 ==

== ENCOUNTER 2023-12-13 13:39 | Emergency (ER) | payer MEDICARE, MEDICAID, SELFPAY ==
[2023-12-13] VITALS (21 sets, daily range): BP systolic 115–153; BP diastolic 69–92; PULSE 102–131; RESP 16–32; TEMP 37.1; O2SAT 91–99; BMI 41.5
--- NOTE | 2023-12-13 13:46 | USR_ITS ---
PROCEDURE INFORMATION: Exam: US Duplex Right Lower Extremity Arteries Or Arterial Bypass Grafts Exam date and time: 12/13/2023 2:15 PM Age: 63 years old Clinical indication: Pain; Leg, lower; Right; Additional info: Leg pain TECHNIQUE: Imaging protocol: Right Real-time duplex scan of the arteries or arterial bypass grafts of the right lower extremity with 2-D claudio scale, color Doppler flow and spectral waveform analysis. Images documented and saved. COMPARISON: US soft tissue/extremity [id number] 09/07/2023 7:07 PM FINDINGS: Right common femoral artery: No occlusion or significant stenosis. Normal waveform. No pseudoaneurysm in the inguinal region. Right superficial femoral artery: No occlusion or significant stenosis. Normal waveform. Right popliteal artery: No occlusion or significant stenosis. Normal waveform. Right calf/foot arteries: Rapidly diminished PSV measurements distal to the popliteal artery in the posterior tibial artery and dorsalis pedis artery. Monophasic waveforms were noted. The anterior tibial and peroneal arteries were not imaged. Soft tissues: No hematoma or [place]. US/[place] [id number] IMPRESSION: Monophasic waveforms and low PSV measurements in the posterior tibial and dorsalis pedis arteries. Otherwise unremarkable exam.
--- NOTE | 2023-12-13 13:46 | USCV_ITS ---
Arianne Archer Age: 63 Gender: F : 1960 Exam Date: 12/13/2023 14:06 Ordering Phys: Gerry John MD Technologist: CT Exam Location: [facility] [place]_ Indication: swelling PROCEDURES: Venous duplex imaging was performed in only the right lower extremity. FINDINGS: dvt from cfv-bo v, as well as the prx gsv and profunda CONCLUSIONS RLE DVT common femoral, femoral, popliteal and peroneal. Also thrombus GSV proximal and profunda Prelim to Dr. John by marine scientist at time of study Jin Easton MD (Electronically Signed) Final Date: 13 Dec 2023 15:32 S
--- NOTE | 2023-12-13 14:07 | ED_ITS ---
HPI - Extremity Problem 2 General: Chief complaint: Extremity Problem,Nontraumatic Stated complaint: R leg pain Time Seen by Provider: 12/13/23 13:40 Source: patient and EMS Mode of arrival: EMS Limitations: no limitations History of Present Illness: 63-year-old female is a senior care pat ient multiple medical issues including end-stage renal disease patient was at dialysis today had a period of hypotension during her dialysis her blood pressure here is improved and is currently 151/76. Per chief nursing officer called and said she has been complaining of leg pain for the last 2 or 3 days with some right leg swelling and some discoloration of her right foot. She states her pain currently is a 4 out of 10 denies fever denies cough Associated symptoms: Deny chest pain, fever(s) or rash Review of Systems 2 Const: Denies: fever(s), chills, body aches or change in appetite ENMT: Denies: throat pain or dental pain Card: Denies: chest pain Resp: Denies: dyspnea GI: Denies: abdominal pain, nausea, vomiting or diarrhea Musc: Reports: extremity pain; Denies: neck pain or back pain Skin/Breast: Denies: rash Neuro: Denies: headache(s) PFSH ED 2 PFSH: Medical History Hyperlipidemia, mixed Essential hypertension Environmental and seasonal allergies Diabetes mellitus with hyperglycemia, with long-term current use of insulin Peritoneal dialysis status Dyslipidemia CRF (chronic renal failure) DVT (deep venous thrombosis) Surgical History Status post colonoscopy (12/11/20) polyp, diverticulosis, internal hemorrhoids Peritoneal dialysis catheter in situ History of parathyroid surgery S/P IVC filter Hx of hysterectomy Family History Father Cancer Denies family history of Anesthesia complication Bleeding disorder Social History Smoking and tobacco/nicotine status: former use of tobacco/nicotine Second hand smoke exposure: No Alcohol intake: never Substance/Drug Use: never Adopted: No Caregiver/support person: No Lives independently: Yes Household members: none Housing: House Marital status: Number of children: 3 Highest education level completed: Some College, No Degree service: No Current occupational status: disabled Physical Exam 2 Const: COMMON NORMALS: patient oriented x3 HENMT: COMMON NORMALS: normocephalic and atraumatic HEAD & SCALP: n ormocephalic and atraumatic Eye: COMMON NORMALS: Equal, round and reactive pupils present and EOMs intact bilaterally PUPIL: Yes Equal, round and reactive pupils present Neck/C-Spine: COMMON NORMALS: full ROM Chest: COMMONS NORMALS: normal inspection of the chest Resp: COMMON NORMALS: normal respiratory effort, No retractions, No use of accessory muscles and clear to auscultation bilaterally AUSCULTATION: clear to auscultation bilaterally Cardio: COMMON NORMALS: regular rate, regular rhythm and No murmurs present (Cardio) RATE: regular rate RHYTHM: regular rhythm GI: COMMON NORMALS: Normal to inspection, nondistended, normoactive bowel sounds present, Soft to palpation, non-tender and no masses PALPATION: Yes Soft to palpation Extremity: COMMON NORMALS: full ROM NARRATIVE EXTREMITY EXAM: Slight swelling noted to right lower leg difficult time finding pulses was able to get a slight pulse with Doppler ultrasound duplex Neuro: COMMON NORMALS: patient oriented x3, moves all extremities and no focal motor deficits Psych: COMMON NORMALS: mental status grossly normal, Normal thought process present and cooperative THOUGHT PROCESS: Normal thought process present Skin: COMMON NORMALS: no rashes or lesions noted and no wounds GENERAL SKIN EXAM: no rashes or lesions noted Course 2 Vital Signs: Vital signs: Vital Signs Temperature 98.7 F 12/13/23 13:42 Pulse Rate 120 H 12/13/23 13:42 Respiratory Rate 16 12/13/23 13:42 Blood Pressure 117/69 12/13/23 13:42 Pulse Oximetry 98 12/13/23 13:42 Oxygen Delivery Me thod Room Air 12/13/23 13:42 MDM - Extremity (Nontraumatic) Medical Decision Making Patient presents with hypotension from the dialysis clinic patient's blood pressure here is improved but her white count lactate are elevated concerning for possible sepsis she is afebrile here did start antibiotics she received 1 L from EMS did not give her any more fluids here as she only had 30 minutes of her dialysis and appeared fluid overloaded did not want to give her more fluids with her normal vital signs. Did an echo she does have a known pericardial effusion no signs of tamponade on ultrasound showed DVT as well we will start her on heparin will admit to the ICU Medical Records I reviewed the patient's medical records. Lab Data I reviewed the patient's lab results. 12/13/23 14:00 12/13/23 14:00 Radiology Impressions Duplex Scan Lower Extremity Artery 12/13/23 13:46 IMPRESSION: Monophasic waveforms and low PSV measurements in the posterior tibial and dorsalis pedis arteries. Otherwise unremarkable exam. Chest X-Ray 12/13/23 14:10 IMPRESSION: No significant change from the prior chest x-ray. Laboratory Results WBC 24.46 10^3/uL (3.29-11.43) H 12/13/23 14:00 RBC 3.38 10^6/uL (3.85-5.65) L 12/13/23 14:00 Hgb 11.20 g/dL (11.27-16.99) L 12/13/23 14:00 Hct 34.3 % (36-47) L 12/13/23 14:00 MCV 101.5 fl (85-98) H 12/13/23 14:00 MCH 33.1 pg (27-33) H 12/13/23 14:00 MCHC 32.7 g/dL (30-55) 12/13/23 14:00 RDW 16.2 % (12.1-15.1) H 12/13/23 14:00 Plt Count 238 10^3/cmm (157-399) 12/13/23 14:00 MPV 9.7 fL (7.4-10.4) 12/13/23 14:00 Neut % (Auto) 85.4 % 12/13/23 14:00 Lymph % (Auto) 8.9 % 12/13/23 14:00 [place] % (Auto) 4.7 % 12/13/23 14:00 Eos % (Auto) 0.0 % 12/13/23 14:00 Baso % (Auto) 0.2 % 12/13/23 14:00 Neut # (Auto) 20.88 10^3/uL (1.8-7.7) H 12/13/23 14:00 Lymph # (Auto) 2.2 10^3/uL (0.8-4.8) 12/13/23 14:00 [place] # (Auto) 1.2 10^3/uL (0.2-0.9) H 12/13/23 14:00 Eos # (Auto) 0.0 10^3/uL (0.0-0.8) 12/13/23 14:00 Baso # (Auto) 0.0 10^3/uL (0.0-0.1) 12/13/23 14:00 Nucleated RBC % (auto) 0 % 12/13/23 14:00 Nucleated RBCs # 0.0 /100WBC 12/13/23 14:00 Sodium 135 mmol/L (136-145) L 12/13/23 14:00 Potassium 4.4 mmol/L (3.5-5.1) 12/13/23 14:00 Chloride 96 mmol/L (98-107) L 12/13/23 14:00 Carbon Dioxide 26 mmol/L (22-29) 12/13/23 14:00 Anion Gap 17.4 (5-19) 12/13/23 14:00 BUN 16 mg/dL (8-23) 12/13/23 14:00 Creatinine 4.7 mg/dL (0.5-0.9) H 12/13/23 14:00 GFR Calculation 9.4 mL/min (90-130) L 12/13/23 14:00 Glucose 137 mg/dL (65-115) H 12/13/23 14:00 Calculated Osmolality 283 mOsm/kg (285-295) L 12/13/23 14:00 Lactic Acid 3.7 mmol/L (0.5-2.2) H 12/13/23 14:00 Calcium 8.2 mg/dL (8.5-10.5) L 12/13/23 14:00 Total Bilirubin 0.5 mg/dL (0.15-1.2) 12/13/23 14:00 AST 20 U/L (0-32) 12/13/23 14:00 ALT 17 U/L (0-33) 12/13/23 14:00 Alkaline Phosphatase 111 U/L (35-105) H 12/13/23 14:00 Total Protein 5.7 g/dL (6.6-8.7) L 12/13/23 14:00 Albumin 2.6 g/dL (3.5-5.2) L 12/13/23 14:00 Globulin 3.1 g/dL (1.3-4.6) 12/13/23 14:00 All radiology interpretation(s) finalized by discharge Critical Care Time 2 Critical Care Time: Critical Care Time: Yes Total Critical Care Time: 40 Attestation: The high probability of a clinically significant, sudden or life threatening deterioration of the patient's vasc system(s) required my full and direct attention, intervention and personal management. The critical care time is as shown. This time is in addition to time spent performing any reported procedures but includes the following: [x] Data and vital sign review and interpretation [x] Patient assessment, examination and intervention [x] Documentation [x] Medication orders and management Discharge Plan Discharge Admit Provider: Karsten Agrawal Clinical Impression: Sepsis, CRF (chronic renal failure), DVT (deep venous thrombosis) Condition: Stable Coding Level of Care Code ED [employer] for Rosa Maria Oliva
[2023-12-13 14:08] LABS: Basophils % 0.2 %; Hematocrit 34.3 % (36-47); Lymphocytes # 2.2 10^3/uL (0.8-4.8); Lymphocytes % 8.9 %; Mean Corpuscular HGB Conc 32.7 g/dL (30-55); Mean Corpuscular Hemoglobin 33.1 pg (27-33); Mean Corpuscular Volume 101.5 fl (85-98); Mean Platelet Volume 9.7 fL (7.4-10.4); Monocytes # 1.2 10^3/uL (0.2-0.9); Monocytes % 4.7 %; Neutrophils # 20.88 10^3/uL (1.8-7.7); Neutrophils % 85.4 %; Nucleated Red Blood Cells % 0 %; Platelet Count 238 10^3/cmm (157-399); Red Blood Count 3.38 10^6/uL (3.85-5.65); Red Cell Distribution Width 16.2 % (12.1-15.1); White Blood Count 24.46 10^3/uL (3.29-11.43)
--- NOTE | 2023-12-13 14:10 | XRR_ITS ---
PROCEDURE INFORMATION: Exam: XR Chest Exam date and time: 12/13/2023 2:39 PM Age: 63 years old Clinical indication: Shortness of breath; Prior surgery; Surgery date: 6+ months; Surgery type: Thyroid dialysis cath; Additional info: SOB TECHNIQUE: Imaging protocol: Radiologic exam of the chest. Views: 1 view. COMPARISON: CR XR chest 1V portable [id number] 09/13/2023 8:29 AM FINDINGS: Tubes, catheters and devices: Dialysis catheter tip is in the right atrium. Lungs: Left basilar/retrocardiac focal opacity is unchanged. Pleural spaces: Unremarkable. No pleural effusion. No pneumothorax. Heart/Mediastinum: Left heart border is obscured. Bones/joints: Unremarkable. XR/XR chest 1V portable [id number] IMPRESSION: No significant change from the prior chest x-ray.
[2023-12-13 14:32] LABS: Alanine Aminotransferase 17 U/L (0-33); Albumin Level 2.6 g/dL (3.5-5.2); Alkaline Phosphatase 111 U/L (35-105); Anion Gap 17.4 (5-19); Aspartate Amino Transferase 20 U/L (0-32); Blood Urea Nitrogen 16 mg/dL (8-23); Calcium 8.2 mg/dL (8.5-10.5); Carbon Dioxide 26 mmol/L (22-29); Chloride 96 mmol/L (98-107); Creatinine Clr Calc Pharmacy 13.0949; Globulin 3.1 g/dL (1.3-4.6); Glomerular Filtration Rate 9.4 mL/min (90-130); Glucose 137 mg/dL (65-115); Osmolality Calculated 283 mOsm/kg (285-295); Potassium 4.4 mmol/L (3.5-5.1); Sodium 135 mmol/L (136-145); Total Bilirubin 0.5 mg/dL (0.15-1.2); Total Protein 5.7 g/dL (6.6-8.7)
[2023-12-13 15:19] LABS: Lactic Sepsis W/Reflex 3.7 mmol/L (0.5-2.2)
--- NOTE | 2023-12-13 15:50 | USCV_ITS ---
Arianne Archer Age: 63 Gender: F : 1960 Exam Date: 12/13/2023 15:57 Ordering Phys: Gerry John MD Technologist: Exam [place] [facility] [place]ication: per effusion BP: 130 / 80 HR: Rhythm: Sinus Technical Quality: Adequate MEASUREMENTS (Male / Female) Normal Values 2D ECHO LV Diastolic Diameter PLAX 2.6 cm 4.2 - 5.9 / 3.9 - 5.3 cm IVS Diastolic Thickness 0.9 cm 0.6 - 1.0 / 0.6 - 0.9 cm IVS Systolic Thickness 1.0 cm LVPW Diastolic Thickness 0.9 cm 0.6 - 1.0 / 0.6 - 0.9 cm LVPW Systolic Thickness 1.2 cm LVOT Diameter 2.0 cm LV Ejection Fraction 2D Teich 67.7 % LV Ejection Fraction MOD 2C 53.4 % LV Ejection Fraction 2C AL 52.5 % LA Diameter 3.4 cm RA Systolic Volume 4C AL 12.3 ml RA Systolic Volume 4C MOD 12.2 ml M-MODE LA Ao Ratio MM 1.8 AV Cusp Separation MM 1.7 cm FINDINGS Left Ventricle Normal LV size ejection fraction. No gross wall motion normalities noted Right Ventricle Right ventricle is not well-visualized. Appears to have minimal collapse Right Atrium Systolic collapse of the right atrium is noted Left Atrium Mildly dilated left atrium Mitral Valve The mitral inflow Doppler has respiratory alterans Aortic Valve No gross abnormalities noted Tricuspid Valve No gross abnormality noted Pulmonic Valve Not visualized well Pericardium Seems to have a large echo-free space with multiple densities attached to the visceral pericardium Effusion is circumferential Aorta Normal aortic annulus size. IVC Inferior vena cava not visualized. CONCLUSIONS Large pericardial effusion with some features of early tamponade Possible exudative effusion Normal LV size ejection fraction. No gross wall motion normalities noted. Mildly dilated left atrium. Compared to the study from 11/16/2023, the effusion appears to be have slightly increased Dr. John was informed about these findings Dr Ayaan Ascencio MD [facility] (Electronically Signed) Final Date: 13 Dec 2023 17:33 S
[2023-12-13] MEDS: sodium chloride 0.9% 1,000 ML 999 ML IV (15:52)
[2023-12-13] MEDS: vancomycin 1,000 MG in sodium chloride 0.9% 250 ML 250 MG IV (15:52)
[2023-12-13 16:44] LABS: Reflex Lactate Order REFLEX LACTIC ORDERD
[2023-12-13] MEDS: heparin drip 25,000 UNIT/500 ML PREMIX 27.9400000000000013 UNIT IV (16:57)
[2023-12-13] MEDS: heparin 5,000 unit/mL INJ 1 mL IV (16:57)
[2023-12-13] MEDS: piperacillin-tazobactam 2.25 GM in sodium chloride 0.9% (plus) 50 ML IV (17:01)
--- NOTE | 2023-12-13 17:26 | P.CONIM_ITS ---
Providers/Reason For Consult 2 Consulting Physician/Specialty*: Hospitalist Reason for Consult*: Hypotension, sepsis, DVT. Attending Physician: Karsten Agrawal Primary Care Provider: ELLIOTT Araujo History of Present Illness History of Present Illness Pleasant 63-year-old lady with ESRD, previously peritoneal dialysis which was not effective was switched over to hemodialysis, receiving it via right subclavian dialysis catheter, history of pericardial effusion with tamponade physiology requiring placement of pericardial drain, followed up with cardiothoracic surgery with noted still medium to large pericardial effusion on echocardiogram 11/19/2023 with signs of chronicity in the pericardium, has had, consideration of pericardial window procedure although elevated risk due to comorbidities, procedure under consideration. Pericardial fluid previously sterile. Consideration possibly initially of uremic pericarditis with loss of effectiveness of peritoneal dialysis, but signs of chronicity/possibly in the pericardium on echo. Peritoneal dialysis has been removed, has a remaining dimple in left side of the abdomen, no surrounding erythema, no drainage. Denies any abdominal pain or GI symptoms. Came into ER today for evaluation due to hypotension during hemodialysis, on presentation with sinus tachycardia, leukocytosis 24.46, afebrile, but hypotensive in transport, received 1 L bolus by EMS, additional 100 cc in ER, with lactic acidosis of 3.7, additionally with reported redness and swelling of right lower extremity noted that yesterday at the [facility], evaluated in ER with venous duplex with finding of right lower extremity DVT and common femoral, femoral, popliteal and peroneal veins as well as thrombus in proximal GSV and profunda. Arterial duplex with monophasic waveforms and low PSV measurements in posterior tibial and dorsalis pedis arteries. She has history of DVT in the left lower extremity in 1993. History of IVC filter. Review of Systems 2 Const: Denies: fever(s), chills, body aches or malaise ENMT: Denies: throat pain Card: Denies: chest pain, pre-syncope or dyspnea on exertion Resp: Denies: dyspnea, productive cough, change in phlegm color or hemoptysis GI: Denies: abdominal pain, nausea, vomiting, diarrhea, constipation, hematochezia or melena : Denies: flank pain, urinary frequency or hematuria Musc: Reports: extremity pain (RLE); Denies: back pain, joint swelling or joint redness Skin/Breast: Denies: rash or new lesions Neuro: Reports: numbness in extremities; Denies: headache(s), weakness in extremities, dizziness, confusion or seizure- like activity Medications/Allergies Home Medications Medication Instructions Recorded Confirmed Last Taken Type vit B,C-folic ac 800 mcg-zinc 12.5 1 tab PO DAILY 08/18/20 12/13/23 09/04/23 History mg-selen-D3 2,000 unit-vit E tablet (RenaPlex-D) flash glucose scanning reader #1 ea 12/03/22 12/13/23 Unknown Rx (FreeStyle Neo 2 Russell) flash glucose sensor (FreeStyle #2 ea 12/03/22 12/13/23 Unknown Rx Neo 2 Sensor kit) blood-glucose sensor (FreeStyle #6 ea 04/12/23 12/13/23 Unknown Rx Neo 3 Sensor device) atorvastatin 40 mg tablet 40 mg PO DAILY #30 tabs 05/04/23 12/13/23 09/05/23 Rx wheelchair #1 ea 07/08/23 12/13/23 Unknown Rx aspirin 81 mg tablet,delayed 81 mg PO DAILY 09/05/23 12/13/23 09/05/23 History release calcium carbonate 500 mg PO DAILY 09/05/23 12/13/23 09/04/23 History guaifenesin 1,200 mg tablet, 1,200 mg PO BID #14 tabs 09/05/23 12/13/23 Unknown Rx extended release 12 hr sevelamer carbonate 800 mg tablet 2,400 mg PO BID 09/05/23 12/13/23 09/04/23 History valacyclovir 1 gram tablet 500 mg (1/2 x 1 gram) PO QPM #7 09/15/23 12/13/23 Unknown Rx tabs insulin degludec 100 unit/mL (3 15 unit SUBCUT BEDTIME 11/23/23 12/13/23 Unknown History mL) subcutaneous pen (Tresiba FlexTouch U-100 insulin) nitrofurantoin 100 mg PO BID 11/23/23 12/13/23 Unknown History monohydrate/macrocrystals 100 mg capsule (Macrobid) acetaminophen 325 mg tablet 650 mg PO Q6H PRN Pain 12/13/23 12/13/23 Unknown History benzonatate 100 mg capsule 100 mg PO TID 12/13/23 12/13/23 Unknown History bisacodyl 10 mg rectal suppository 10 mg UT DAILY PRN Constipation 12/13/23 12/13/23 Unknown History dextromethorphan-guaifenesin 10 10 ml PO Q4H PRN COUGH OR 12/13/23 12/13/23 Unknown History mg-100 mg/5 mL oral liquid (Tussin CONGESTION Cough and Chest Congestion) gentamicin 0.1 % topical cream 1 applic topical DAILY 12/13/23 12/13/23 Unknown History insulin lispro 100 unit/mL 5 unit SUBCUT TID 12/13/23 12/13/23 Unknown History subcutaneous half-unit pen (Humalog Guido KwikPen (U-100)) Allergies Allergy/AdvReac Type Severity Reaction Status Date / Time allopurinol Allergy ADR-Faintin Verified 11/28/23 08:19 g Iodinated Contrast Media Allergy Unknown Verified 11/28/23 08:19 loratadine [From Claritin-D] Allergy Heart Verified 11/28/23 08:19 Palpatations pseudoephedrine Allergy Heart Verified 11/28/23 08:19 [From Claritin-D] Palpatations Current Medications Generic Name Dose Route Start Last Admin Trade Name Freq PRN Reason Stop Dose Admin Heparin Sodium (Porcine) 0 unit 12/13/23 15:38 12/13/23 16:57 Heparin 5,000 Unit/Ml Inj 1 Ml IV 5,000 unit PRN PRN Administration Heparin weight-base protocol Protocol Heparin Sodium/Sodium Chloride 25,000 unit in 500 mls @ 0 mls/hr 12/13/23 15:45 12/13/23 16:57 Heparin Drip IV 14 unit/kg/hr .Q0M AZIZA 27.94 mls/hr Administration Protocol Per Protocol PFSH Acute 2 PFSH: Medical History Hyperlipidemia, mixed Essential hypertension Environmental and seasonal allergies Diabetes mellitus with hyperglycemia, with long-term current use of insulin Peritoneal dialysis status Dyslipidemia CRF (chronic renal failure) DVT (deep venous thrombosis) Surgical History Status post colonoscopy (05/06/21) polyp, diverticulosis, internal hemorrhoids Peritoneal dialysis catheter in situ History of parathyroid surgery S/P IVC filter Hx of hysterectomy Family History Father Cancer Denies family history of Anesthesia complication Bleeding disorder Social History Smoking and tobacco/nicotine status: former use of tobacco/nicotine Second hand smoke exposure: No Alcohol intake: never Substance/Drug Use: never Adopted: No Caregiver/support person: No Lives independently: Yes Household members: none Housing: House Marital status: Number of children: 3 Highest education level completed: Some College, No Degree service: No Current occupational status: disabled Vitals/I&O/Wt Last Vital Signs Temp 98.7 F 12/13/23 13:42 Pulse 123 H 12/13/23 16:30 Resp 18 12/13/23 16:15 BP 115/75 12/13/23 15:30 Pulse Ox 98 12/13/23 16:30 O2 Del Method Room Air 12/13/23 13:57 12/13/23 12/13/23 12/13/23 06:59 14:59 22:59 Intake Total 433.15 / 433.15 Balance 433.15 / 433.15 Weight last 48 hrs Weight 99.79 kg Physical Exam 2 Narrative: Accompanied by her sister Const: COMMON NORMALS: patient oriented x3 and alert GENERAL APPEARANCE: c ooperative NUTRITIONAL APPEARANCE: obese ORIENTATION/CONSCIOUSNESS: Yes awake HENMT: COMMON NORMALS: oropharynx normal Neck/C-Spine: COMMON NORMALS: no JVD Chest: OTHER: R chest HD catheter Resp: COMMON NORMALS: normal respiratory effort and clear to auscultation bilaterally AUSCULTATION: clear to auscultation bilaterally Cardio: COMMON NORMALS: no JVD, regular rhythm, S1 normal heart sound present, S2 normal heart sound present and No murmurs present (Cardio) RHYTHM: regular rhythm HEART SOUNDS: S1 normal heart sound present and S2 normal heart sound present GI: COMMON NORMALS: Normal to inspection, nondistended, normoactive bowel sounds present, Soft to palpation and non-tender PALPATION: Yes Soft to palpation OTHER: 0.5 cm dimple left side abdomen, without surrounding erythema, no drainage, appears to be healed wound after removal of peritoneal dialysis catheter. Extremity: COMMON NORMALS: no joint enlargement OTHER: Right lower extremity edema 1+, cool to touch, she reports numbness of the foot. Purple discoloration of distal left foot. Small ulceration medial left heel. Posterior heel with area of redness early possible prior healing pressure ulcer versus early pressure ulcer, but difficult to tell with some color changes with extensive DVT. Neuro: COMMON NORMALS: patient oriented x3 and moves all extremities S ENSORIUM/ORIENTATION: Yes alert Skin: COMMON NORMALS: no rashes or lesions noted GENERAL SKIN EXAM: no rashes or lesions noted Data 12/13/23 14:00 12/13/23 14:00 Micro: Microbiology 12/13/23 15:17 Blood Culture - Preliminary Blood SPECIMEN COLLECTED 12/13/23 15:10 Blood Culture - Preliminary Blood SPECIMEN COLLECTED A&P Assessment and plan (1) Right leg DVT: Extensive right lower extremity DVT with common femoral, femoral, popliteal, peroneal, as well as proximal GSV and profunda vein thrombi. 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 Per history obtained from patient's sister swelling appeared sometime yesterday. Loss of sensation is recent. Discussed with patient and family, with comorbidities she is at elevated risk of bleeding in case of thrombolytic/increased risk in case of surgical procedure, however, with developing phlegmasia cerulea dolens with just anticoagulation is at risk of limb ischemia, limb loss and/or other more severe complications. They would like to proceed with additional assessment and consideration for intervention with specialist at higher level care facility. Discussed with ER physician, initiating arrangements for transfer. In the meantime in ER also started on heparin drip. Monitor due to risk of bleeding with heparin drip. Reviewed vitals, CBC, CMP, chest x-ray, arterial duplex, venous duplex, limited echocardiogram, ED physician note, discussed with ED physician. (2) Hypotension: Combination of hypovolemia, initially consideration of possible tamponade etiology with pericardial effusion, medium-large pericardial effusion on echocardiogram 11/19/2023. History of tamponade. Stat echocardiogram assessed, pulmonary findings without tamponade, official read with some features of early tamponade. Has been on follow-up with cardiothoracic surgery with consideration of subxiphoid pericardial window, although at elevated risk for procedure with comorbidities, procedure had been under consideration with previously unchanged effusion on the prior echo before the current one. However, now with large pericardial effusion with some features of early tamponade, has been noted by ER physician and is currently being discussed as well with accepting facility. Possibly secondary to severe sepsis. Possibility of PE. Discussed with patient and family. Blood cultures have been collected, lactic acid was obtained. Received empiric antibiotic coverage with Zosyn, vancomycin. Qualifiers: Hypotension type: unspecified hypotension type Qualified Code(s): I95.9 - Hypotension, unspecified (3) Sepsis: Suspected severe sepsis with sinus tachycardia 120s-130s, leukocytosis 24.46, lactic acid 3.7. She is afebrile. Without obvious source at the moment. Chest x-ray unremarkable. No abdominal pain, tenderness, no GI complaints. No redness, swelling, tenderness or drainage around HD catheter in the right chest. Blood cultures collected. Plan ESRD: Previous improvement on dialysis but became ineffective. Switched over to hemodialysis. Right heel ulcer: Will need wound care and follow-up. DM2 on insulin HLD Remote history of DVT in left lower extremity back in 1993 IVC filter Consult Attestations 2 Medical Necessity Statement: N/A Diagnoses Right leg DVT I82.401 Hypotension I95.9 Hypotension type: unspecified hypotension type Sepsis A41.9
[2023-12-13] MEDS: morphine 4 mg/mL SDV 1 mL IVP (17:57)
== END 2023-12-13 18:46 | disposition short-term general hospital (02) ==
LOC: ER 14:41 → ICU 16:16
PROVIDERS: Emergency Provider Emergency Medicine; PCP Nurse Practitioner
DX: I82.411 Acute embolism and thrombosis of right femoral vein (principal); I82.431 Acute embolism and thrombosis of right popliteal vein; I82.451 Acute embolism and thrombosis of right peroneal vein; I31.39 Other pericardial effusion (noninflammatory); A41.9 Sepsis, unspecified organism; E11.22 Type 2 diabetes mellitus with diabetic chronic kidney disease; I12.0 Hypertensive chronic kidney disease with stage 5 chronic kidney disease or end stage renal disease; N18.6 End stage renal disease; Z99.2 Dependence on renal dialysis; E78.2 Mixed hyperlipidemia; Z87.891 Personal history of nicotine dependence
CPT/HCPCS: 36415; 71045; 80053; 83605; 85025; 87040; 93306; 93308; 93926; 93971; 96365; 96367; 96375; 99291; J1644; J2270; J2543; J3370; J7030; J7050